=== PATIENT | female | born 1950 | race Caucasian/White ===

== ENCOUNTER → 2018-01-12 13:22 | Outpatient (CLI) | payer MEDICARE, OTHER, SELFPAY ==
[2018-01-12 16:46] LABS: Hemoglobin A1c 7.8 % (4.2-6.3)
[2018-01-12 16:56] LABS: ALB/GLOB Ratio 0.9 RATIO (0.9-2.4); AST(SGOT) 25 U/L (15-37); Alanine Aminotransfer ALT/SGPT 49 U/L (13-56); Albumin, Serum 3.6 g/dL (3.2-5.0); Alkaline Phosphatase 82 U/L (45-117); Anion Gap 8 (5-15); BUN 13 mg/dL (7-18); BUN/Creat Ratio 16.8 RATIO (10-20); Calcium,Total 9.2 mg/dL (8.5-10.1); Chloride 101 mmol/L (98-107); Cholesterol 188 mg/dL (200); Creatinine, Serum 0.77 mg/dL (0.55-1.02); EST Glomerular Filtration Rate 79 mL/min (>60); Est Glom Filt Rate - Afr Amer 95 mL/min (>60); Globulin 4.2 g/dL (2.2-4.2); Glucose 123 mg/dL (74-106); High Density Lipoprotein 48 mg/dL; Potassium 3.9 mmol/L (3.5-5.1); Protein, Total 7.8 g/dL (6.4-8.2); Sodium Level 141 mmol/L (136-145); Thyroid Stim Hormone (TSH) 1.19 uIU/mL (0.358-3.74); Triglycerides 176 mg/dL; Very Low Density Lipoprotein 35 mg/dL (5-40)
--- NOTE | 2018-01-13 09:34 | PFT ---
INTRODUCTION: The patient is a 67-year-old female that presents for pulmonary function testing secondary to a diagnosis of COPD. Respiratory therapy reports good patient effort. Bronchodilators were used during testing. INTERPRETATION: Forced expiration spirometry demonstrates the presence of a severe large airways obstructive ventilatory defect. There was no significant response to aerosolized bronchodilators. Spirograms are of good quality and do not plateau indicating slow emptying of the lungs. Body plethysmography was performed and reveals an elevated RV to 143% of predicted, indicative of underlying air trapping. Diffusing capacity by single breath CO severely reduced at 41% of predicted. IMPRESSION: These pulmonary function studies demonstrate the presence of an irreversible severe large airways obstructive ventilatory defect with associated air trapping and symmetric reduction in diffusing capacity. All of this would be in keeping with the patient's known history of COPD.
== END ==
PROVIDERS: Family Provider Family Medicine; PCP Family Medicine; Visit Provider Family Medicine
DX: E11.9 Type 2 diabetes mellitus without complications (principal); J44.9 Chronic obstructive pulmonary disease, unspecified; E03.9 Hypothyroidism, unspecified
CPT/HCPCS: 36415; 80053; 80061; 83036; 84443; 94060; 94726; 94729

== ENCOUNTER → 2018-02-19 13:44 | Outpatient (CLI) | payer MEDICARE, OTHER, SELFPAY | PROVIDERS: Family Provider Family Medicine; PCP Family Medicine; Visit Provider Family Medicine | DX: R22.2 Localized swelling, mass and lump, trunk (principal) | CPT/HCPCS: 71046 ==

== ENCOUNTER → 2018-02-23 10:08 | Outpatient (CLI) | payer MEDICARE, OTHER, SELFPAY | PROVIDERS: Family Provider Family Medicine; PCP Family Medicine; Visit Provider Family Medicine | DX: E04.9 Nontoxic goiter, unspecified (principal); R22.2 Localized swelling, mass and lump, trunk | CPT/HCPCS: 76536; 76604 ==

== ENCOUNTER → 2018-03-06 07:02 | Outpatient (CLI) | payer MEDICARE, OTHER, SELFPAY | PROVIDERS: Family Provider Family Medicine; PCP Family Medicine; Visit Provider Surgery | DX: M89.9 Disorder of bone, unspecified (principal) | CPT/HCPCS: 71250 ==

== ENCOUNTER → 2018-09-23 08:18 | Outpatient (CLI) | payer MEDICARE, OTHER, SELFPAY ==
[2018-09-22 14:10] VITALS: BMI 25.2
[2018-09-23 08:21] LABS: Bacteria 0 SEEN /hpf (None Seen); Mucous, Urine 0 SEEN /hpf (<or=2+); Red Blood Cells-Urine 0 SEEN /hpf (0-5)
[2018-09-23 12:32] LABS: Color, Urine Yellow (Yellow); Glucose, Dipstick Normal (Normal); Ketone-Dipstick Negative (Negative); Leukocyte Esterase-Dipstick Negative /ul (Negative); Nitrite-Dipstick Negative (Negative); Occult Blood-Urine Negative /ul (Negative); Protein-Dipstick 30 mg/dl (Negative); Urine Bilirubin Dipstick Negative (Negative); Urine Clarity Sl. Cloudy (Clear); Urine Urobilinogen Normal (Normal)
[2018-09-23 13:02] LABS: Calcium Oxalate Crystals Ur 2+ /hpf (<or=2+); Squamous Epithelial Cells - UA 0-5 SEEN /hpf (5-10); White Blood Cells 0-5 SEEN /hpf (0-5)
== END ==
PROVIDERS: Family Provider Family Medicine; PCP Family Medicine; Visit Provider Nurse Practitioner Family
DX: R30.0 Dysuria (principal); R53.1 Weakness
CPT/HCPCS: 81001; 87086

== ENCOUNTER → 2018-12-28 | Outpatient (CLI) | payer MEDICARE, OTHER, SELFPAY ==
[2018-12-16 16:30] VITALS: BMI 24.2
[2018-12-28 07:55] LABS: ALB/GLOB Ratio 0.8 RATIO (0.9-2.4); AST(SGOT) 34 U/L (15-37); Alanine Aminotransfer ALT/SGPT 71 U/L (13-56); Albumin, Serum 3.5 g/dL (3.2-5.0); Alkaline Phosphatase 85 U/L (45-117); Anion Gap 7 (5-15); BUN 15 mg/dL (7-18); BUN/Creat Ratio 17.3 RATIO (10-20); Calcium,Total 9.2 mg/dL (8.5-10.1); Chloride 101 mmol/L (98-107); Cholesterol 177 mg/dL (200); Creatinine, Serum 0.87 mg/dL (0.55-1.02); EST Glomerular Filtration Rate 69 mL/min (>60); Est Glom Filt Rate - Afr Amer 83 mL/min (>60); Globulin 4.3 g/dL (2.2-4.2); Glucose 141 mg/dL (74-106); High Density Lipoprotein 50 mg/dL; Potassium 3.9 mmol/L (3.5-5.1); Protein, Total 7.8 g/dL (6.4-8.2); Sodium Level 140 mmol/L (136-145); Thyroid Stim Hormone (TSH) 0.61 uIU/mL (0.358-3.74); Triglycerides 187 mg/dL; Very Low Density Lipoprotein 37 mg/dL (5-40)
== END | disposition home or self-care (01) ==
LOC: LAB 06:57
PROVIDERS: Family Provider Family Medicine; PCP Family Medicine; Referring Provider Family Medicine; Visit Provider Family Medicine
DX: I10 Essential (primary) hypertension (principal); E78.5 Hyperlipidemia, unspecified; E03.9 Hypothyroidism, unspecified
CPT/HCPCS: 36415; 80053; 80061; 84443

== ENCOUNTER → 2019-05-06 | Outpatient (CLI) | payer MEDICARE, OTHER, SELFPAY ==
[2019-05-06 13:07] VITALS: BMI 24.2
[2019-05-06 14:31] LABS: Bacteria 0 SEEN /hpf (None Seen); Mucous, Urine 0 SEEN /hpf (<or=2+); Red Blood Cells-Urine 0 SEEN /hpf (0-5); White Blood Cells 0 SEEN /hpf (0-5)
[2019-05-06 15:39] LABS: Absolute Lymphocyte Count 3.63 X10^3/uL (0.83-4.51); Absolute Neutrophil Count 5.9 X10^3/uL (2.0-7.7); Basophil# 0.04 X10^3/uL; Basophil% 0.4 % (0-1); Eosinophil# 0.06 X10^3/uL; Eosinophils% 0.6 % (0-5); Hemoglobin 15.1 g/dL (12.0-15.0); Lymphocyte # 3.63 X10^3/ul (4.0); Lymphocyte % 34.8 % (19-41); Mean Corp Hgb Conc 32.1 g/dL (32-36); Mean Corpuscular Hgb 31.9 pg (27.0-32.0); Mean Corpuscular Volume 99.4 fL (81-99); Mean Platelet Vol. 10.1 fl (6.2-12.0); Monocyte% 6.7 % (0-10); NRBC Flagged by Analyzer 0 % (0-5); Neutrophil # 5.94 X10^3/uL (2.7-7.7); Neutrophil % 56.9 % (47-70); Platelet Count 314 K/mm3 (150-450); RBC Distribution Width CV 11.7 % (11.6-14.6); RBC Distribution Width SD 42.9 fl (35.1-43.9); Red Blood Count 4.73 M/mm3 (4.2-5.4); White Blood Count 10.4 K/mm3 (4.4-11.0)
[2019-05-06 16:06] LABS: ALB/GLOB Ratio 0.9 RATIO (0.9-2.4); AST(SGOT) 23 U/L (15-37); Alanine Aminotransfer ALT/SGPT 63 U/L (13-56); Albumin, Serum 3.5 g/dL (3.2-5.0); Alkaline Phosphatase 82 U/L (45-117); Amylase 59 U/L (25-115); Anion Gap 7 (5-15); BUN 8 mg/dL (7-18); BUN/Creat Ratio 9.6 RATIO (10-20); Calcium,Total 8.9 mg/dL (8.5-10.1); Chloride 102 mmol/L (98-107); Creatinine, Serum 0.83 mg/dL (0.55-1.02); EST Glomerular Filtration Rate 72 mL/min (>60); Est Glom Filt Rate - Afr Amer 87 mL/min (>60); Globulin 4.1 g/dL (2.2-4.2); Glucose 129 mg/dL (74-106); Lipase 100 U/L (73-393); Potassium 4.1 mmol/L (3.5-5.1); Protein, Total 7.6 g/dL (6.4-8.2); Sodium Level 140 mmol/L (136-145); Thyroid Stim Hormone (TSH) 0.99 uIU/mL (0.358-3.74)
[2019-05-06 17:18] LABS: Color, Urine Yellow (Yellow); Glucose, Dipstick Normal (Normal); Ketone-Dipstick Negative (Negative); Leukocyte Esterase-Dipstick Negative /ul (Negative); Nitrite-Dipstick Negative (Negative); Occult Blood-Urine Negative /ul (Negative); Protein-Dipstick 30 mg/dl (Negative); Specific Gravity, Urine 1.025 (1.002-1.030); Urine Bilirubin Dipstick Negative (Negative); Urine Clarity Sl. Cloudy (Clear); Urine Urobilinogen Normal (Normal)
[2019-05-06 17:54] LABS: Calcium Oxalate Crystals Ur 4+ /hpf (<or=2+); Squamous Epithelial Cells - UA 0-5 SEEN /hpf (5-10)
== END | disposition home or self-care (01) ==
LOC: MTLAB 14:25
PROVIDERS: Family Provider Family Medicine; PCP Family Medicine; Referring Provider Nurse Practitioner Family; Visit Provider Nurse Practitioner Family
DX: R14.0 Abdominal distension (gaseous) (principal)
CPT/HCPCS: 36415; 80053; 81001; 82150; 83690; 84443; 85025; 87086; 87088

== ENCOUNTER → 2019-05-17 10:03 | Outpatient (CLI) | payer MEDICARE, OTHER, SELFPAY ==
[2019-05-06 13:07] VITALS: BMI 24.2
--- NOTE | 2019-05-17 10:07 | US_ITS ---
STUDY: ABDOMINAL ULTRASOUND REASON FOR EXAM: Female, 68 years old. Abdominal pain. Flank pain. TECHNIQUE: Transabdominal ultrasound was performed with real-time and static magana scale imaging. TECHNICAL QUALITY: Adequate. COMPARISON: CT scan 09/17/2015. FINDINGS: Liver: The liver measures 15.6 cm. There is increased echogenicity consistent with fatty infiltration. The bile ducts are within normal limits. There is hepatic color flow. The direction of portal flow is hepatopetal. There is no demonstrated mass lesion. Portal vein measurement: Gallbladder: The patient is status post cholecystectomy. Common Bile Duct (C.B.D.): The common bile duct measures 4.3 mm. Pancreas: Normal size of the head, body and tail of the pancreas. There is normal echogenicity of the pancreas. There is no demonstrated pancreatic mass or cyst. Spleen: Normal size of the spleen. The spleen measures 8.1 cm. Right Kidney: Normal size of the right kidney. The right kidney measures 11.1 cm. Normal renal cortex. The right cortex measures 1.7 cm. There is no demonstrated renal mass or cyst. There is no right hydronephrosis. Left Kidney: Normal size of the left kidney. The left kidney measures 10.4 cm. Normal renal cortex. The left cortex measures 1.6 cm. There is a 3.5 cm lower pole cyst. There is no left hydronephrosis. Aorta: Mild 3.2 cm distal aortic aneurysm. I.V.C.: The IVC is patent. There is no ascites. US/Abdomen Complete IMPRESSION: No definite acute abnormality. Electronically Signed: Juan Espinal MD at 21:59 EST , Service support ,
== END ==
PROVIDERS: Family Provider Family Medicine; PCP Family Medicine; Referring Provider Nurse Practitioner Family; Visit Provider Nurse Practitioner Family
DX: R10.9 Unspecified abdominal pain (principal); R14.0 Abdominal distension (gaseous)
CPT/HCPCS: 76700

== ENCOUNTER → 2019-12-05 13:34 | Outpatient (CLI) | payer MEDICARE, SELFPAY ==
[2019-11-29 14:17] VITALS: BMI 24.2
[2019-12-02 07:59] VITALS: BMI 24.2
--- NOTE | 2019-12-05 13:36 | BI_ITS ---
MAMMOGRAPHY - BILATERAL SCREENING REASON FOR EXAM: Female, 69 years old. Routine annual screening examination. PERTINENT HISTORY: Non-contributory. Right axillary fullness. TECHNIQUE: Digital bilateral breast chapincito (3D mammographic acquisition) in the CC and MLO projections. 2-D mediolateral oblique (MLO) and craniocaudad (CC) views of both breasts were obtained. CAD: Full Field Digital Mammography with Computer Added Detection was performed. COMPARISON: Comparison is made with prior study dated July 17, 2011. FINDINGS: Breast Composition: There are scattered areas of fibroglandular density. There are no dominant masses or suspicious calcifications. No other significant abnormalities are identified. There has been no significant change since the prior study. BI/SCREEN MAMM (CAD) W/CHAPINCITO BILAT IMPRESSION: Stable bilateral screening mammogram. With the patient''s history of a right axillary fullness, correlation with ultrasound is recommended. ASSESSMENT CATEGORY: BIRADS Category 0: Incomplete. Need additional imaging evaluation. A letter regarding these results will be sent to the patient by the facility within 30 days. Approximately 10% of breast cancers are not detected by mammography. A normal mammogram should not delay biopsy of a clinically suspicious abnormality. [id number] Electronically Signed: Jagdish Kenney, at 14:34 EDT , Service support ,
--- NOTE | 2019-12-05 13:36 | US_ITS ---
STUDY: ULTRASOUND BREAST - RIGHT REASON FOR EXAM: Female, 69 years old. Right axillary fullness. TECHNIQUE: Axial and longitudinal images of the RIGHT breast were performed with a high resolution ultrasound transducer. # OF IMAGES: 19 COMPARISON: Comparison is made with prior mammogram done earlier today. FINDINGS: RIGHT Breast: The axillary region of the right breast was examined by ultrasound. There is evidence of fibroglandular tissue. No solid or cystic mass lesion is seen. US/Breast Limited Unilateral IMPRESSION: The axillary fullness corresponds to accessory breast tissue. ASSESSMENT CATEGORY: BIRADS Category 2: Benign. A letter regarding these results will be sent to the patient by the facility within 30 days. Electronically Signed: Jagdish Kenney, at 14:35 EDT , Service support ,
--- OUTSIDE RECORDS SUMMARY | 2020-04-15 09:40 | XMS RPT_ITS | CCD ---
:1950 External Reference #:[id number] Author Organization [facility] Care Team Providers Name Role Phone Unavailable Unavailable Unavailable Results Result Name Value Range Unit Interpretation Flag Date Location progress on 2019-11 PROGRESS HNO ID: [id number] Normal 12-10-2019 [facility] Author: Vaishali Pulido (Papo) Heather Rodriguez ([id number]) Service: ? Author Type: Physician Water Service Dispatcher Type: Progress Notes Filed: 12/10/2019 2:56 PM Note Text: This note was created using [employer]. Subjective Abiola Abreu is a 69 year old female. HPI Pt presents with jaw pain. She had a tooth pulled December 01 a yesterday her jaw started hurting and she noticed some swelling. She d oes not smoke and has been washing her mouth with salt water after eating. She says her oral surgeon is out of town this week. No fever or chills. N o drainage form the gum but she did notice a lump on her gum. Review of Systems HENT: Jaw pain All other systems reviewed and are negative. PAST MEDICAL HISTORY Diagnosis Date - Unspecified essential hypertension Essential hypertension - Unspecified hypothyroidism Hypothyroidism Current Outpatient Medications Medication Sig Dispense Refill - metFORMIN ER (GLUCOPHAGE XR) 750 mg 24 hr tablet Take 1 ta blet by mouth twice daily. - aspirin-calcium carbonate 81 mg-300 mg calcium(777 mg) tab Take 1 tablet by mouth once daily. - albuterol HFA (VENTOLIN HFA) 90 mcg/actuation inhaler Inha le 2 Puffs as instructed every 4 hours as needed for Wheezing/Shortness of Breath. 1 Inhaler 0 - LEVOTHYROXINE 100 MCG TAB Take one(1) tablet daily. 0 - nifedipine(PROCARDIA XL 30 MG 24 HR TAB) 0 - pravastatin (PRAVACHOL) 40 mg tablet Take 0.5 tablets by m outh once daily. - amoxicillin (AMOXIL) 875 mg tablet Take 1 tablet by mouth twice daily for 10 days. 20 tablet 0 No current facility-administered medications for this visit. PAST SURGICAL HISTORY Procedure Laterality Date - LAP CHOLECYSTECT/CHOLANGIOGRAPHY 12/07/2007 Normal IOC - REPAIR ROTATOR CUFF,ACUTE Rotator cuff repair - right - REVISE MEDIAN N/CARPAL TUNNEL SURG Carpal tunnel decomp - bilateral History reviewed. No pertinent family history. Social History Tobacco Use - Smoking status: Former Smoker Packs/day: 0.50 Years: 45.00 Pack years: 22.50 Types: Cigarettes Last attempt to quit: 06/2015 Years since quittin.4 - Smokeless tobacco: Never Used Substance Use Topics - Alcohol use: No - Drug use: No Objective BP 120/72 Pulse 86 Temp 36.9 ?C (98.4 ?F) (Left Tympanic ) Resp 16 Wt 61 kg (134 lb 6.4 oz) Physical Exam Vitals signs and nursing note reviewed. Constitutional: Appearance: Normal appearance. HENT: Head: Normocephalic and atraumatic. Mouth/Throat: Comments: Pt has evidence of a recent dental extraction on r ight lower molar are. There is some mild swelling of the gum line and o verlying jaw. No trismus. No sign of ludwigs angina. No dry socket visuali zed. Skin: General: Skin is warm and dry. Findings: No rash. Neurological: Mental Status: She is alert. Assessment and Plan ASSESSMENT/PLAN: 1. Dental infection - ICD9: 522.4, ICD10: K04.7 I will start her on amoxil and have her follow up with her traci daniels. Discussed red flags for emergent care. Pt agreeable. Vaishali Heller PA-C cnfeliz on 2019-12-10 [facility] Office Visit ([facility]) Normal 12-10-19 20 [place] ABIOLA Smart ([id number]) 1950 F [facility] Time Provider Department ([id number]) 12/10/19 1:45 PM VAISHALI HELLER) [facility] During your visit today, we recorded the following informati on about you: Temperature Pulse Respiration Blood pressure 98.4 degrees 86/minute 16/minute 120/72 Weight 61 kg Vaishali Heller PA-C 12/10/2019 2:56 PM Signed This note was created using [employer]. Subjective Abiola Abreu is a 69 year old female. HPI Pt presents with jaw pain. She had a tooth pulled December 01 and yesterday her jaw started hurting and she noticed some swellin g. She does not smoke and has been washing her mouth with salt water a fter eating. She says her oral surgeon is out of town this week. No fever or ch ills. No drainage form the gum but she did notice a lump on her gum. Review of Systems HENT: Jaw pain All other systems reviewed and are negative. PAST MEDICAL HISTORY Diagnosis Date - Unspecified essential hypertension Essential hypertension - Unspecified hypothyroidism Hypothyroidism Current Outpatient Medications Medication Sig Dispense Refill - metFORMIN ER (GLUCOPHAGE X R) 750 mg 24 hr tablet Take 1 tablet by mouth twice daily. - aspirin-calcium carbonate 81 mg-300 mg calcium (777 mg) tab Take 1 tablet by mouth once daily. - albuterol HFA (VENTOLIN HFA) 90 mcg/actuation inhaler Inha le 2 Puffs as instructed every 4 hours as needed for W heezing/Shortness of Breath. 1 Inhaler 0 - LEVOTHYROXINE 100 MCG TAB Take one(1) tablet daily. 0 - nifedipine(PROCARDIA XL 30 MG 24 HR TAB) 0 - pravastatin (PRAVACHOL) 40 mg tablet Take 0.5 tablet s by mouth once daily. - amoxicillin (AMOXIL) 875 mg tablet Jay e 1 tablet by mouth twice daily for 10 days. 20 tablet 0 No current facility-administered medications for this visit. PAST SURGICAL HISTORY Procedure Laterality Date - LAP CHOLECYSTECT/CHOLANGIOGRAPHY 12/07/2007 Normal IOC - REPAIR ROTATOR CUFF,ACUTE Rotator cuff repair - right - REVISE MEDIAN N/CARPAL TUNNEL SURG Carpal tunnel decomp - bilateral History reviewed. No pertinent family history. Social History Tobacco Use - Smoking status: Former Smoker Packs/day: 0.50 Years: 45.00 Pack years: 22.50 Types: Cigarettes Last attempt to quit: 06/2015 Years since quittin.4 - Smokeless tobacco: Never Used Substance Use Topics - Alcohol use: No - Drug use: No Objective BP 120/72 Pulse 86 Temp 36.9 ?C (98.4 ?F) (Left Tympanic ) Resp 16 Wt 61 kg (134 lb 6.4 oz) Physical Exam Vitals signs and nursing note reviewed. Constitutional: Appearance: Normal appearance. HENT: Head: Normocephalic and atraumatic. Mouth/Throat: Comments: Pt has evidence of a recent dental extractio n on right lower molar are. There is some mild swel ling of the gum line and overlying jaw. No trismus. No sign of ludwigs angina. No dry socket visualized. Skin: General: Skin is warm and dry. Findings: No rash. Neurological: Mental Status: She is alert. Assessment and Plan ASSESSMENT/PLAN: 1. Dental infection - ICD9: 522.4, ICD10: K04.7 I will start her on amoxil and have her follow u p with her dentist. Discussed red flags for emergent care. Pt agreeable. Vaishali Heller PA-C Referring Provider: SELF [[id number]] Allergies As of Date: 12/10/2019 Noted Allergy Reaction SULFA (SULFONAMIDE ANTIBIOTICS) 11/29/2007 4 - Hives Date Reviewed: 12/10/2019 Reviewed by: Sandie Dowling Ma - Fully Assessed Reason for Visit: Mouth/Lip Problem [68] Cmt: possible infection after t ooth extraction 12/02/19 Primary Visit Diagnosis:Dental infection [K04.7] Order(s):amoxicillin (AMOXIL) 875 mg tabletTake 1 tablet by mouth twice daily for 10 days.Disp: 20 tabletRfl: 0 Prescriptions as of 12/10/2019 Sig: METFORMIN ER 750 MG TABLET,EX* Take 1 tablet by mouth twice * ASPIRIN-CALCIUM CARBONATE 81 * Take 1 tablet by mouth once d * ALBUTEROL SULFATE HFA 90 MCG/* Inhale 2 Puffs as instructed * * LEVOTHYROXINE 100 MCG TABLET Take one(1) tablet daily. * PROCARDIA XL 30 MG TABLET,EXT* PRAVASTATIN 40 MG TABLET Take 0.5 tablets by mouth onc* AMOXICILLIN 875 MG TABLET Take 1 tablet by mouth twice * Problem List As Of Date 12/10/2019 Noted Resolved ABDOMINAL PAIN RUQ [R10.11] 11/29/2007 DIS OF GALLBLADDER NEC [K82.8] 12/11/2007 LUMBOSACRAL NEURITIS NOS [[id number]] 10/03/2008 Prescriptions ordered this encounter Disp Refills Start End AMOXICILLIN 875 MG TABLET 20 t* 0 12/10/2019 12/20/2019 Route: ORAL Sig: Take 1 tablet by mouth twice daily for 10 days. Encounter Status:Closed by VAISHALI HELLER PA-C on 12/10/19 Summary Purpose Family History No Family History Records Found Advance Directives No Advanced Directives Records Found Additional Source Comments FOR RECORDS PERTAINING TO PATIENTS WHO ARE OR HAVE BEEN ENROLLED IN A CHEMICAL DEPENDENCY/SUBSTANCE ABUSE PROGRAM, SOME INFORMATION MAY BE OMITTED. This clinical summary was aggregated from multiple sources. Caution should be exercised in using it in the provision of clinical care. This summary normalizes information from multiple sources, and as a consequence, information in this document may materially changethe coding, format and clinical context of patient data. In addition, data may be omittedin some cases. CLINICAL DECISIONS SHOULD BE BASED ON THE PRIMARY CLINICAL RECORDS. [employer] [facility] provides no warranty or guarantee of the accuracy or completeness of information in this document. UNRECOGNIZED CONTENT PROVIDED BELOW FOR UNRECOGNIZED SECTION INFORMATION SOURCE DATE CREATED AUTHOR AUTHOR'S ORGANIZATIO N 12/10/2019 [facility]
== END ==
PROVIDERS: PCP Family Medicine; Referring Provider Family Medicine; Visit Provider Family Medicine
DX: Z12.31 Encounter for screening mammogram for malignant neoplasm of breast (principal); N63.32 Unspecified lump in axillary tail of the left breast; N63.31 Unspecified lump in axillary tail of the right breast
CPT/HCPCS: 76642; 77063; 77067

== ENCOUNTER → 2020-02-28 | Outpatient (CLI) | payer MEDICARE, SELFPAY ==
[2020-02-28 14:05] VITALS: BMI 24.2
[2020-02-28 17:32] LABS: ALB/GLOB Ratio 0.9 RATIO (0.9-2.4); AST(SGOT) 21 U/L (15-37); Alanine Aminotransfer ALT/SGPT 39 U/L (13-56); Albumin, Serum 3.7 g/dL (3.2-5.0); Alkaline Phosphatase 68 U/L (45-117); Anion Gap 5 (5-15); BUN 19 mg/dL (7-18); BUN/Creat Ratio 16.4 RATIO (10-20); Calcium,Total 8.8 mg/dL (8.5-10.1); Chloride 103 mmol/L (98-107); Cholesterol 197 mg/dL (200); Creatinine, Serum 1.16 mg/dL (0.55-1.02); EST Glomerular Filtration Rate 49 mL/min (>60); Est Glom Filt Rate - Afr Amer 59 mL/min (>60); Globulin 4.2 g/dL (2.2-4.2); Glucose 182 mg/dL (74-106); High Density Lipoprotein 53 mg/dL; Protein, Total 7.9 g/dL (6.4-8.2); Sodium Level 139 mmol/L (136-145); T4 Free Direct 0.91 ng/dL (0.76-1.46); Triglycerides 227 mg/dL; Very Low Density Lipoprotein 45 mg/dL (5-40)
== END | disposition home or self-care (01) ==
LOC: BIMLAB 14:26
PROVIDERS: PCP Family Medicine; Referring Provider Family Medicine; Visit Provider Family Medicine
DX: E11.9 Type 2 diabetes mellitus without complications (principal); G45.8 Other transient cerebral ischemic attacks and related syndromes
CPT/HCPCS: 36415; 80053; 80061; 84439

== ENCOUNTER → 2020-04-06 | Outpatient (CLI) | payer MEDICARE, SELFPAY ==
[2020-04-06 10:33] VITALS: BMI 22.6
[2020-04-06 11:00] LABS: Bacteria 0 SEEN /hpf (None Seen); Mucous, Urine 0 SEEN /hpf (<or=2+); Red Blood Cells-Urine 0 SEEN /hpf (0-5)
[2020-04-06 12:50] LABS: Color, Urine Yellow (Yellow); Glucose, Dipstick Normal (Normal); Ketone-Dipstick Negative (Negative); Leukocyte Esterase-Dipstick 25 /ul (Negative); Nitrite-Dipstick Negative (Negative); Occult Blood-Urine Negative /ul (Negative); Protein-Dipstick 30 mg/dl (Negative); Specific Gravity, Urine 1.025 (1.002-1.030); Urine Bilirubin Dipstick Negative (Negative); Urine Clarity Clear (Clear); Urine Urobilinogen Normal (Normal)
[2020-04-06 13:00] LABS: Calcium Oxalate Crystals Ur 1+ /hpf (<or=2+); Hyaline Cast 10-25 SEEN /lpf (0-5); Squamous Epithelial Cells - UA 10-25 SEEN /hpf (5-10); White Blood Cells 0-5 SEEN /hpf (0-5)
[2020-04-06 17:29] LABS: Anion Gap 5 (5-15); BUN 18 mg/dL (7-18); BUN/Creat Ratio 19.2 RATIO (10-20); Calcium,Total 9.3 mg/dL (8.5-10.1); Chloride 94 mmol/L (98-107); Creatinine, Serum 0.94 mg/dL (0.55-1.02); EST Glomerular Filtration Rate 63 mL/min (>60); Est Glom Filt Rate - Afr Amer 76 mL/min (>60); Glucose 100 mg/dL (74-106); Potassium 4.2 mmol/L (3.5-5.1); Sodium Level 132 mmol/L (136-145)
== END | disposition home or self-care (01) ==
LOC: LABSPEC 10:59 → BIMLAB 14:47
PROVIDERS: PCP Family Medicine; Referring Provider Nurse Practitioner Family; Visit Provider Nurse Practitioner Family
DX: R30.0 Dysuria (principal); R94.4 Abnormal results of kidney function studies
CPT/HCPCS: 36415; 80048; 81001; 87086; 87088

== ENCOUNTER → 2020-06-15 08:44 | Outpatient (CLI) | payer MEDICARE, SELFPAY ==
[2020-05-31 14:07] VITALS: BMI 24.2
--- NOTE | 2020-06-15 08:47 | AAVD_ITS ---
Reason For Study: AAA Aorta Measurements Aorta Doppler Measurements Proximal aorta measures1.83 x 1.96cm. in cross- Peak systolic flow velocities within the proximal sectional axis. aorta measure 46.1 cm/sec. Proximal aorta measures1.90cm. in longitudinal Peak systolic flow velocities within the mid aorta axis. measure 30.5 cm/sec. Mid aorta measures3.01 x 3.03cm. in cross- Peak systolic flow velocities within the distal sectional axis. aorta measure 21.6 cm/sec. Mid aorta measures3.07cm. in longitudinal axis. Distal aorta measures2.57 x 2.74cm. in cross- sectional axis. Distal aorta measures2.74cm. in longitudinal axis. Left Iliac Artery Left iliac artery measures 0.75 x 0.73 cm. in the cross-sectional axis. Left iliac artery measures 0.81 cm. in the longitudinal axis. Peak systolic velocity in the left iliac artery measures 40.2 cm/sec. Right Iliac Artery Right iliac artery measures 0.85 x 0.86 cm. in the cross-sectional axis. Right iliac artery measures 0.93 cm. in the longitudinal axis. Peak systolic velocity in the right iliac artery measures 33.7 cm/sec. Procedure Aorta IVC Iliac vasculature or bypass grafts [id number]. Exam performed in department. Interpretation Summary Mid abdominal aortic aneurysm 3.01 x 3.03 cm. Left common iliac 0.75 x 0.73 cm which is normal Right common iliac 0.85 x 0.86 cm which is normal I do not have previous studies available for comparison. Ordering Physician: Harjinder Castillo Referring Physician: Harjinder Castillo Performed By: Carol Gonsalez RVT and Student
== END ==
PROVIDERS: PCP Family Medicine; Referring Provider Family Medicine; Visit Provider Family Medicine
DX: I71.4 Abdominal aortic aneurysm, without rupture (principal)
CPT/HCPCS: 93978

== ENCOUNTER 2020-07-13 14:02 | Emergency (ER) | payer MEDICARE, SELFPAY ==
[2020-05-31 14:07] VITALS: BMI 24.2
[2020-07-13 14:03] VITALS: BP 139/93; PULSE 109; RESP 20; TEMP 36.3; O2SAT 92; BMI 22.6
--- NOTE | 2020-07-13 14:18 | ED.VISSUMM ---
- ER Visit Summary Date of Service: 07/13/20 Chief Complaint: Diarrhea History of Present Illness: The patient is a [address] Harjinder Castillo. She reports she has diarrhea that began 3 days ago. She is having is 2-3 times a day. Reports it has been black since yesterday. She complains of a cramping abdominal pains 8 out of 10 at worst and she is pain-free currently. This is worsened by nothing and relieved by having a bowel movement. She denies any nausea or vomiting. Patient reports that 3 weeks ago she was diagnosed with a E. coli and was placed on antibiotics for 5 days. She states that it did not work and my stomach is still grumbling. Patient denies any fever, chills, sore throat, or cough. She reports that her son also has diarrhea. She denies sick contacts. She has not been camping. She does drink well water. Physical Examination: Vitals: 97.4, 131/53, 109, 20, 90% room air which not hypoxic. General: Well-nourished and well-developed. Head: Normocephalic atraumatic. Neck: Supple, no lymphadenopathy. No JVD. Nontender. Cardiovascular: Regular rate and rhythm. No murmurs. Respiratory: No respiratory distress. Clear to auscultation bilaterally. Abdominal: Soft, mild left lower quadrant tenderness to palpation, nondistended, normal bowel sounds. No guarding, rebound, or peritoneal signs. Back: Nontender. Extremities: Nontender, no edema. Skin: Normal color, no rash. Neurologic: Alert and oriented ?3. Cranial nerves II through XII are intact. Normal strength and sensation. Psych: Normal affect. Test Results: CBC is normal. Of note her hemoglobin is 13.9. Chem-7 shows a creatinine 1.18. BUN is 18. LFTs are normal. Hemoccult was negative. COVID-19 is negative. Clinical Impression(s) from Imaging Studies Abdomen/Pelvis CT 07/13/20 15:32 IMPRESSION: Aneurysmal dilatation of the distal abdominal aorta with a transverse dimension of 3.2 cm. Mural thrombus. Diffuse fatty infiltration of the liver. Hepatomegaly. The patient is status post cholecystectomy. Electronically Signed: Jagdish Kenney, at 15:47 EST , Service support , Emergency Department Course and Treatment: Patient brought a stool sample with her. This appears brown with black flecks and is not runny. She refused pain or nausea medications. Treatment Plan: Had a prolonged discussion the patient after things had returned. She at this time told me that she did take 2 Pepto-Bismol tablets prior to her stool turning black. She has had no diarrhea while here. I feel that she is suitable candidate for further outpatient evaluation. She will be discharged instructions that if her stool studies are abnormal she will be contacted. Instructed to take in probiotics. Follow-up with her primary 3 to 5 days if not improving. Return to the emergency department for any worsening symptoms. Disposition: To home in improved and stable condition. Impression: 1 1. Diarrhea. This note was generated with [employer] dictation software. It may contain incorrect words, spelling, and punctuation that were not noted in review of the chart prior to signing ED Disposition - Plan for ED Patient: Instructions: ED Diarrhea, Unknown Cause Referrals: Harjinder Castillo, DO [Primary Care Provider] - 3-5 Days if not improving
[2020-07-13 14:58] LABS: Absolute Lymphocyte Count 3.29 X10^3/uL (0.83-4.51); Absolute Neutrophil Count 5.4 X10^3/uL (2.0-7.7); Basophil# 0.08 X10^3/uL; Basophil% 0.8 % (0-1); Eosinophil# 0.14 X10^3/uL; Eosinophils% 1.5 % (0-5); Hematocrit 42.4 % (37-47); Hemoglobin 13.9 g/dL (12.0-15.0); Lymphocyte # 3.29 X10^3/ul (4.0); Lymphocyte % 34.5 % (19-41); Mean Corp Hgb Conc 32.8 g/dL (32-36); Mean Corpuscular Hgb 32.6 pg (27.0-32.0); Mean Corpuscular Volume 99.3 fL (81-99); Mean Platelet Vol. 9.6 fl (6.2-12.0); Monocyte# 0.62 X10^3/uL; Monocyte% 6.5 % (0-10); NRBC Flagged by Analyzer 0 % (0-5); Neutrophil # 5.35 X10^3/uL (2.7-7.7); Neutrophil % 56.2 % (47-70); Platelet Count 337 K/mm3 (150-450); RBC Distribution Width CV 12.4 % (11.6-14.6); RBC Distribution Width SD 45.4 fl (35.1-43.9); Red Blood Count 4.27 M/mm3 (4.2-5.4); White Blood Count 9.5 K/mm3 (4.4-11.0)
[2020-07-13 15:16] LABS: AST(SGOT) 17 U/L (15-37); Alanine Aminotransfer ALT/SGPT 33 U/L (13-56); Albumin, Serum 3.8 g/dL (3.2-5.0); Alkaline Phosphatase 68 U/L (45-117); Anion Gap 3 (5-15); BUN 18 mg/dL (7-18); BUN/Creat Ratio 15.3 RATIO (10-20); Calcium,Total 9.1 mg/dL (8.5-10.1); Chloride 107 mmol/L (98-107); Creatinine, Serum 1.18 mg/dL (0.55-1.02); EST Glomerular Filtration Rate 48 mL/min (>60); Est Glom Filt Rate - Afr Amer 58 mL/min (>60); Estimated Creatinine Clearance 38.31 ml/min; Glucose 95 mg/dL (74-106); Potassium 4.1 mmol/L (3.5-5.1); Protein, Total 7.8 g/dL (6.4-8.2); Sodium Level 140 mmol/L (136-145)
--- NOTE | 2020-07-13 15:32 | CT_ITS ---
STUDY: CT ABDOMEN AND PELVIS WITH CONTRAST REASON FOR EXAM: Female, 69 years old. BLACK STOOL X 2 DAYS RADIATION DOSAGE (If Supplied By Facility): CTDIvol = ( 11.81 ) mGy, DLP = ( 504.62 ) mGycm TECHNIQUE: Transaxial images were obtained from the dome of the diaphragm to the symphysis pubis without oral contrast. IV 100mL Isovue-300 was administered. Sagittal and coronal images were reconstructed. Individualized dose optimization techniques were used for this CT. COMPARISON: None. FINDINGS: The visualized lung bases are unremarkable. The visualized portions of the heart are within normal limits. There is decreased attenuation of the liver consistent with steatosis. Mild hepatomegaly. The patient is status post cholecystectomy. Normal spleen. Normal pancreas. Normal bilateral adrenal glands. Normal right kidney. 3.3 cm cyst in the lower pole of the left kidney. Normal visualized stomach. Normal small intestine. There are multiple colonic diverticula consistent with diverticulosis. The appendix is visualized and appears normal. There is diffuse atherosclerotic calcification of the abdominal aorta. There is evidence of intrarenal abdominal aortic aneurysm with a transverse dimension of 3.2 cm. Mural thrombus is seen.. Normal inferior vena cava. Normal retroperitoneum. Normal urinary bladder. Normal abdominal wall. Normal osseous structures. CT/Abdomen/Pelvis W IV Cont ONLY IMPRESSION: Aneurysmal dilatation of the distal abdominal aorta with a transverse dimension of 3.2 cm. Mural thrombus. Diffuse fatty infiltration of the liver. Hepatomegaly. The patient is status post cholecystectomy. Electronically Signed: Jadgish Kenney, at 15:47 EST , Service support ,
[2020-07-13 16:12] VITALS: BP 128/66; PULSE 73; RESP 15; O2SAT 96
== END 2020-07-13 16:16 | disposition home or self-care (01) ==
LOC: ED 15:15
PROVIDERS: Emergency Provider Emergency Medicine; PCP Family Medicine
DX: R19.7 Diarrhea, unspecified (principal); E11.9 Type 2 diabetes mellitus without complications; Z87.891 Personal history of nicotine dependence; Z79.84 Long term (current) use of oral hypoglycemic drugs
CPT/HCPCS: 74177; 80053; 82274; 83630; 85025; 87177; 87209; 87426; 87493; 87506; 99283; Q9967; A4216

== ENCOUNTER 2020-08-30 07:22 | Outpatient (RCR) | payer MEDICARE, SELFPAY ==
[2020-08-30] MEDS: COVID-19 VACC, MRNA(PFIZER)/PF 30 MCG/0.3 ML SYRINGE IM (13:57)
[2020-09-20] MEDS: COVID-19 VACC, MRNA(PFIZER)/PF 30 MCG/0.3 ML SYRINGE IM (13:27)
== END 2020-12-04 23:59 ==
LOC: IMMUN 07:22
PROVIDERS: PCP Family Medicine; Referring Provider Family Medicine; Visit Provider Family Medicine
DX: Z23 Encounter for immunization (principal)
CPT/HCPCS: 0001A; 0002A; 91300

== ENCOUNTER → 2021-01-29 10:06 | Outpatient (CLI) | payer MEDICARE, SELFPAY ==
[2021-01-29 09:30] VITALS: BMI 21.8
[2021-01-29 12:21] LABS: AST(SGOT) 19 U/L (15-37); Alanine Aminotransfer ALT/SGPT 33 U/L (13-56); Albumin, Serum 3.9 g/dL (3.2-5.0); Alkaline Phosphatase 57 U/L (45-117); Anion Gap 6 (5-15); BUN 15 mg/dL (7-18); BUN/Creat Ratio 14.2 RATIO (10-20); Calcium,Total 9.6 mg/dL (8.5-10.1); Chloride 103 mmol/L (98-107); Creatinine, Serum 1.06 mg/dL (0.55-1.02); EST Glomerular Filtration Rate 54 mL/min (>60); Est Glom Filt Rate - Afr Amer 66 mL/min (>60); Globulin 3.8 g/dL (2.2-4.2); Glucose 160 mg/dL (74-106); Potassium 3.8 mmol/L (3.5-5.1); Protein, Total 7.7 g/dL (6.4-8.2); Sodium Level 139 mmol/L (136-145)
== END ==
PROVIDERS: PCP Family Medicine; Referring Provider Internal Medicine; Visit Provider Internal Medicine
DX: R16.0 Hepatomegaly, not elsewhere classified (principal)
CPT/HCPCS: 36415; 80053

== ENCOUNTER → 2021-03-05 12:55 | Outpatient (CLI) | payer MEDICARE, SELFPAY ==
--- NOTE | 2021-03-05 14:00 | CT_ITS ---
STUDY: LOW DOSE CT LUNG CANCER SCREENING REASON FOR EXAM: Female, 70 years old. Lung cancer screening -- 53 pack yr history; former smoker; asymptomatic RADIATION DOSAGE (If Supplied By Facility): CTDIvol = ( 2.01 ) mGy, DLP = ( 65.95 ) mGycm TECHNIQUE: No contrast was administered. Low dose technique was utilized (average mAS-38 and kVp 120). 1.25 mm axial source images with a slice interval of 1.25-mm were reconstructed in lung windows. 2.5 mm axial source images with a slice interval of 2.5-mm were reconstructed in lung windows. 5.0 mm axial source images with a slice interval of 5.0-mm were reconstructed in soft tissue windows. Nodule measured using lung windows on PACS and/or independent workstation with automated measurement of minimum and maximum diameter. Nodule measurement reported as average diameter rounded to the nearest whole number. Growth is defined as an increase ins size of greater than 1.5 mm. COMPARISON: Comparison is made with prior examination dated 03/06/2018. NODULES: No suspicious pulmonary nodules are seen. Emphysema: Hyperinflation. Mild degree of emphysematous changes in both lungs more prominent in the right lower lobe with some bullous formation. Endobronchial lesion: Aorta: Atherosclerotic plaque formation of the ascending aorta and descending thoracic aorta. Coronary arteries: Coronary artery calcification. Heart: Unremarkable Pulmonary artery: Unremarkable Mediastinal nodes: Unremarkable Other chest and abdominal findings: CT/Low Dose CT Lung Screening IMPRESSION: Lung-RADS category 2 - Continue annual screening with LDCT in 12 months. IMPORTANT NOTES FOR USE: ACR Lung-RADS Version 1.1 Assessment Categories Release Date: 2018 Category: Coded 0-4 bases on nodule(s) with highest degree of suspicion. Negative screen is defined as categories 1 and 2; a positive screen is defined as categories 3 and 4. Category 3 and 4A nodules that are unchanged on interval CT should be coded as category 2, and individuals returned to screening in 12 months. Category 4X: Category 3 or 4 nodules with additional imaging findings that increase the suspicion of lung cancer, such as spiculation, GGN that doubles in size in 1 year, enlarged lymph notes, etc. Category Modifiers: S (significant finding unrelated to lung cancer) Electronically Signed: Jagdish Kenney MD at 14:30 EDT , Service support ,
== END ==
PROVIDERS: PCP Family Medicine; Referring Provider Nurse Practitioner Family; Visit Provider Nurse Practitioner Family
DX: Z87.891 Personal history of nicotine dependence (principal); Z12.2 Encounter for screening for malignant neoplasm of respiratory organs
CPT/HCPCS: 71271

== ENCOUNTER → 2021-03-27 | Outpatient (CLI) | payer MEDICARE, SELFPAY ==
[2021-03-27 10:25] LABS: Bacteria 0 SEEN /hpf (None Seen); Mucous, Urine 0 SEEN /hpf (<or=2+); Red Blood Cells-Urine 0 SEEN /hpf (0-5); White Blood Cells 0 SEEN /hpf (0-5)
[2021-03-27 12:43] LABS: Color, Urine Straw (Yellow); Glucose, Dipstick Normal (Normal); Ketone-Dipstick Negative (Negative); Leukocyte Esterase-Dipstick Negative /ul (Negative); Nitrite-Dipstick Negative (Negative); Occult Blood-Urine Negative /ul (Negative); Protein-Dipstick Negative (Negative); Urine Bilirubin Dipstick Negative (Negative); Urine Clarity Sl. Cloudy (Clear); Urine Urobilinogen Normal (Normal); Urine pH 6.5 (5.0 - 8.0)
[2021-03-27 12:54] LABS: Squamous Epithelial Cells - UA 0-5 SEEN /hpf (5-10)
== END | disposition home or self-care (01) ==
LOC: LABSPEC 10:24
PROVIDERS: PCP Family Medicine; Referring Provider Nurse Practitioner Family; Visit Provider Nurse Practitioner Family
DX: R30.0 Dysuria (principal); R53.1 Weakness
CPT/HCPCS: 81001; 87086

== ENCOUNTER → 2021-05-30 13:42 | Outpatient (CLI) | payer MEDICARE, SELFPAY ==
[2021-05-30 15:51] LABS: T4 Free Direct 0.85 ng/dL (0.76-1.46)
[2021-06-03 15:08] LABS: Thyroid Peroxidase AB 75 IU/mL (0-34)
[2021-06-03 20:53] LABS: Thyroglobulin Antibody > 2250.0 IU/mL (0.0-0.9)
== END ==
PROVIDERS: PCP Family Medicine; Referring Provider Family Medicine; Visit Provider Family Medicine
DX: E03.9 Hypothyroidism, unspecified (principal); R53.1 Weakness
CPT/HCPCS: 36415; 84439; 84443; 86376; 86800

== ENCOUNTER → 2021-06-12 08:48 | Outpatient (CLI) | payer MEDICARE, SELFPAY ==
--- NOTE | 2021-06-12 09:07 | AAAS_ITS ---
Reason For Study: AAA Aorta Measurements Aorta Doppler Measurements Proximal aorta measures2.38cm x 2.28cm. in cross- Peak systolic flow velocities within the proximal sectional axis. aorta measure 70 cm/sec. Proximal aorta measures2.12cm. in longitudinal Peak systolic flow velocities within the mid aorta axis. measure 44 cm/sec. Mid aorta measures3.22cm x 3.27cm. in cross- Peak systolic flow velocities within the distal sectional axis. aorta measure 34 cm/sec. Mid aorta measures2.85cm. in longitudinal axis. Distal aorta measures1.91cm x 1.87cm. in cross- sectional axis. Distal aorta measures1.94cm. in longitudinal axis. Left Iliac Artery Left iliac artery measures 0.59cm x 0.70 cm. in the cross-sectional axis. Left iliac artery measures 0.74 cm. in the longitudinal axis. Peak systolic velocity in the left iliac artery measures 62 cm/sec. Right Iliac Artery Right iliac artery measures 0.64cm x 0.80 cm. in the cross-sectional axis. Right iliac artery measures 0.77 cm. in the longitudinal axis. Peak systolic velocity in the right iliac artery measures 59 cm/sec. Procedure Aorta IVC Iliac vasculature or bypass grafts 53862. Exam performed in department. VL/AAA Screening Interpretation Summary Proximal abdominal aorta 2.38 x 2.28 cm in diameter Mid abdominal aorta 3.22 x 3.27 cm diameter consistent with a small aneurysm Right common axial 0.64 x 0.8 cm normal Left common neck 0.59 x 0.7 cm in diameter normal Normal flow rates are noted in the abdominal aorta and iliac arteries Minimal change in the abdominal aorta from the previous examination of June 15, 2020 when the mid abdominal aorta measured 3.01 x 3.03 cm Ordering Physician: Harjinder Castillo Referring Physician: Harjinder Castillo Performed By: Ritu Goff, RDCS, RVT
== END ==
PROVIDERS: PCP Family Medicine; Referring Provider Family Medicine; Visit Provider Family Medicine
DX: I71.4 Abdominal aortic aneurysm, without rupture (principal)
CPT/HCPCS: 76706

== ENCOUNTER → 2021-06-25 11:48 | Outpatient (CLI) | payer MEDICARE, SELFPAY ==
--- NOTE | 2021-06-25 11:55 | RAD_ITS ---
STUDY: X-RAY STERNUM REASON FOR EXAM: Female, 70 years old. Lung. TECHNIQUE: 4 view(s) of the sternum were obtained. COMPARISON: None. FINDINGS: Normal bilateral sternoclavicular articulations. Normal manubrium. Normal sternomanubrial joint. Normal sternal body and xiphoid process. There is no demonstrated fracture of the sternum. Normal visualized anterior ribs. Normal visualized lungs. The soft tissue structures are unremarkable. RAD/Sternum min 2 Views IMPRESSION: Normal x-ray examination of the sternum. Electronically Signed: Mitch Ling MD at 10:34 EST , Service support ,
== END ==
PROVIDERS: PCP Family Medicine; Referring Provider Family Medicine; Visit Provider Family Medicine
DX: R07.89 Other chest pain (principal)
CPT/HCPCS: 71120

== ENCOUNTER 2021-07-19 12:23 | Outpatient (CLI) | payer MEDICARE, OTHER, SELFPAY ==
--- NOTE | 2021-07-19 12:33 | STEWCON_ITS ---
Reason For Study: Chest Pain; Dyspnea Stress Results Protocol: Dobutamine Stress Echo With Definity Maximum Predicted HR: 149 bpm Target HR: 127 bpm % Maximum Predicted HR: 92 % DurationHeart Rate Stage (mm:ss) (bpm) BP Comment Baseline 108 113/59Mild Chest Pressure; 5 ML Diluted Definity DSE 10 MCG 3:33 96 107/63Mild Chest Pressure DSE 20 MCG 2:14 137 112/56Mild Chest Pressure Recovery 100 107/57Mild Chest Pressure Stress Duration: 5:47 mm:ss Maximum Stress HR: 137 bpm METS: 1 Baseline Echocardiogram Findings Stress Echo Wall motion Data Resting WM Intermediate WM Stress WM ECHO/Stress Test Echo W/Contrast Interpretation Summary Dobutamine stress echocardiogram. 70-year-old lady with a history of chest pain. Resting echocardiogram performed with Definity enhancement and stress echocardi ogram with Definity enhancement. Stress protocol: Resting EKG demonstrates sinus rhythm with a rate of 100 bpm resting blood pres sure is 113/59 mmHg. Dobutamine was infused starting at 10 mcg/kg/min to a peak of 20 mcg/kg/min. Th e maximum heart rate attained was 141 bpm which was 94% of max infected heart rate the maximum workl oad was 1 metabolic equivalent. At rest nonspecific ST changes were noted and at peak infusion nons pecific ST changes were noted. There was approximately 1 mm of horizontal to upsloping ST depressi on noted in the inferior lateral leads not diagnostic of ischemia. During recovery changes retu rned back to baseline immediately. The peak blood pressure was 121/71 mmHg. Stress echocardiogram. The resting echocardiographic function demonstrated an e jection fraction of approximately 70%. At low-dose and at peak dose there was near chamber oblitera tion present with peaking of ejection fraction at 85%. No wall motion abnormalities were noted to suggest ischemia. Conclusion: Dobutamine stress echocardiogram with no wall motion abnormalities to suggest i schemia. Ordering Physician: Harjinder Castillo Referring Physician: Buck Delgado Performed By: Brandi Montalvo, YUSUF, RVT
== END 2021-07-19 23:59 | disposition short-term general hospital (02) ==
PROVIDERS: PCP Family Medicine; Referring Provider Family Medicine; Visit Provider Family Medicine
DX: R07.9 Chest pain, unspecified (principal)
CPT/HCPCS: 93017; 93350; J7040; Q9957; A4216; C8928

== ENCOUNTER 2021-08-14 15:28 | Outpatient (CLI) | payer MEDICARE, OTHER, SELFPAY ==
[2021-08-14 16:55] LABS: Thyroid Stim Hormone (TSH) 0.06 uIU/mL (0.358-3.74)
== END 2021-08-14 23:59 | disposition home or self-care (01) ==
LOC: BIMLAB 15:29
PROVIDERS: PCP Family Medicine; Referring Provider Family Medicine; Visit Provider Family Medicine
DX: E03.9 Hypothyroidism, unspecified (principal)
CPT/HCPCS: 36415; 84443

== ENCOUNTER 2021-09-27 10:18 | Outpatient (CLI) | payer MEDICARE, SELFPAY ==
[2021-09-27 12:39] LABS: T4 Free Direct 1.14 ng/dL (0.76-1.46); Thyroid Stim Hormone (TSH) 7.09 uIU/mL (0.358-3.74)
== END 2021-09-27 23:59 | disposition home or self-care (01) ==
LOC: BIMLAB 10:20
PROVIDERS: PCP Family Medicine; Referring Provider Family Medicine; Visit Provider Family Medicine
DX: E03.9 Hypothyroidism, unspecified (principal)
CPT/HCPCS: 36415; 84439; 84443

== ENCOUNTER → 2021-10-25 | Outpatient (CLI) | payer MEDICARE, SELFPAY ==
[2021-10-25 15:58] LABS: Bacteria 0 SEEN /hpf (None Seen); Mucous, Urine 0 SEEN /hpf (<or=2+); Red Blood Cells-Urine 0 SEEN /hpf (0-5); Squamous Epithelial Cells - UA 0 SEEN /hpf (5-10); White Blood Cells 0 SEEN /hpf (0-5)
[2021-10-25 16:47] LABS: Color, Urine Straw (Yellow); Glucose, Dipstick Normal (Normal); Ketone-Dipstick Negative (Negative); Leukocyte Esterase-Dipstick 25 /ul (Negative); Nitrite-Dipstick Negative (Negative); Occult Blood-Urine Negative /ul (Negative); Protein-Dipstick Negative (Negative); Urine Bilirubin Dipstick Negative (Negative); Urine Clarity Clear (Clear); Urine Urobilinogen Normal (Normal)
== END | disposition home or self-care (01) ==
LOC: LABSPEC 15:57
PROVIDERS: PCP Family Medicine; Referring Provider Physician Assistant; Visit Provider Physician Assistant
DX: R39.9 Unspecified symptoms and signs involving the genitourinary system (principal)
CPT/HCPCS: 81001; 87086; 87088

== ENCOUNTER 2021-11-07 06:57 | Emergency (ER) | payer MEDICARE, SELFPAY ==
[2021-11-07 06:59] VITALS: BP 163/94; PULSE 109; RESP 14; TEMP 36.6; O2SAT 94; BMI 21.9
--- NOTE | 2021-11-07 07:13 | EDS_ITS ---
HPI History of Present Illness Chief Complaint: Complaint Informant: patient Onset/Context/Timing Onset: Yesterday Context: Sudden Onset Timing: Intermittent Quality: blood and few small clots Location: urine Current Severity: Moderate Maximum Severity: Moderate Worsened by: n/a Relieved by: n/a Associated Symptoms Associated Symptoms: bloating Narrative Narrative: Patient presents with hematuria that started last night. Some clots but no retention. She feels like she is bloated a little but denies any abdominal pain, nausea, vomiting. Bowel movements been normal. No vaginal symptoms or discharge. 2 weeks ago, she had foul-smelling urine and she states it was sticky when she would wipe but denies having a vaginal discharge at that time. Saw her PCP and was diagnosed with a urinary infection placed on nitrofurantoin and prednisone. She states her urine is not foul-smelling anymore. She never had any dysuria or abdominal pain. She has discomfort in her low back when she does activities but that is not new with this, and she denies any changes or back discomfort that is new/associated with the symptoms. No history of any kidney stones. She is on no blood thinning medications. [facility] Medical History Acute maxillary sinusitis Asthma Back problem Chronic obstructive lung disease Encounter for screening for malignant neoplasm of lung in current smoker with 30 pack year history or greater Goiter Hepatomegaly History of tobacco use Hyperlipidemia Hypertension Hypothyroid Shingles Smoking greater than 40 pack years Type 2 diabetes mellitus Home Medications montelukast 10 mg tablet 10 mg PO QPM #90 tab 10/24/20 [Rx Last Taken Unknown] lisinopril 10 mg tablet 10 mg PO DAILY #90 tab 11/27/20 [Rx Last Taken Unknown] pravastatin 40 mg tablet 20 mg PO DAILY #90 tab 05/21/21 [Rx Last Taken Unknown] meloxicam 7.5 mg tablet 7.5 mg PO DAILY #30 tab 05/30/21 [Rx Last Taken Unknown] metformin 750 mg tablet,extended release 24 hr 750 mg PO BID #180 tab 06/11/21 [Rx Last Taken Unknown] levothyroxine 75 mcg tablet 75 mcg PO DAILY #90 tab 08/15/21 [Rx Last Taken Unknown] fluconazole 150 mg tablet 150 mg PO Q3D #2 tab 09/05/21 [Rx Last Taken Unknown] penicillin V potassium 500 mg tablet 500 mg PO TID #30 tab 09/05/21 [Rx Last Taken Unknown] fluticasone fur. 200 mcg-umeclid 62.5 mcg-vilant 25 mcg inhalat.powder 1 inh INHALATION DAILY #180 ea 10/24/21 [Rx Last Taken Unknown] levocetirizine 5 mg tablet 5 mg PO DAILY PRN #30 tab 10/25/21 [Rx Last Taken Unknown] prednisone 10 mg tablet 10 mg PO DAILY #30 tab 10/25/21 [Rx Last Taken Unknown] cephalexin 500 mg PO Q6 #20 capsule 11/07/21 [Rx Last Taken Unknown] Allergy/AdvReac Type Severity Reaction Status Date / Time amlodipine Allergy Unknown muscle pain Verified 11/07/21 07:02 Sulfa (Sulfonamide Allergy Rash Verified 11/07/21 07:02 Antibiotics) Family History Sister Thyroid disorder Thyroid cancer Heart disease Diabetes Mother Colon cancer Ovarian cancer Diabetes Father Stomach cancer Colon cancer Brother Heart disease Grandfather Colon cancer Surgical History History of cholecystectomy History of colonoscopy Social History Smoking Status: Former smoker quit date: 06/29/18 pack-years: 55 Tobacco: How many years used: 55 how long ago did patient quit smokin years second hand exposure: Yes quit status: quit date established alcohol intake: never substance use type: does not use caffeine: No what type of physical activity do you participate in: none ROS ROS ED Constitutional Constitutional ED: Denies chills or fever(s) Eyes Eyes: Denies change in vision or diplopia ENT ENT ED: Denies rhinorrhea or sore throat Cardiovascular Cardiovascular: Denies chest pain or palpitations Respiratory/Chest Respiratory/Chest: Denies cough or dyspnea Gastrointestinal Gastrointestinal: Reports as per HPI and bloating; Denies abdominal pain, diarrhea, nausea or vomiting Genitourinary Genitourinary ED: Reports hematuria; Denies dysuria, itching, vaginal bleeding or vaginal discharge Musculoskeletal Musculoskeletal: Reports as per HPI and back pain; Denies neck pain Integumentary Denies abscess or rash Neurologic Neurologic: Denies headache(s), paresthesias or weakness Psychiatric Psychiatric: Denies anxiety or suicidal thoughts EXAM Physical Exam Const Vital Signs: 11/07/21 06:59 Temperature 97.8 F Temperature Source Temporal Pulse Rate 109 H Respiratory Rate 14 Blood Pressure 163/94 H Blood Pressure Mean 117 Pulse Ox 94 Oxygen Delivery Method Room Air Positive well nourished and well developed General Appearance ED: well developed and NAD HEENT Reports moist mucous membranes normocephalic and atraumatic Eyes PERRL and EOMs intact bilaterally Neck full ROM and supple Resp normal respiratory effort and clear to auscultation bilaterally Cardio regular rate, regular rhythm and no murmurs GI non-tender and non-distended Auscultation: normoactive bowel sounds Palpation: soft Speculum Exam - Vagina: Negative for vaginal bleeding or vaginal discharge Back/Spine no CVA tenderness General Back: other FROM Extremity normal to inspection General Extremety ED: Negative for edema, pulses abnormal or tenderness General Extremity: Negative for edema or pulses abnormal Neuro oriented x3, CN's II-XII intact bilaterally, no sensory deficits noted and gait normal Sensorium / Orientation: awake and alert Motor Exam: strength 5/5 throughout Skin no rashes or lesions noted and no wounds MDM MDM MDM Narrative Medical decision making narrative: Urinalysis initially sent, it does show some leukocyte Estrace and pyuria, but no bacteria. Blood noted. Therefore I sent her also for a CT abdomen/pelvis, and blood work was obtained. She has a leukocytosis but this may be due to the prednisone she has been taking, the rest of her blood work is unremarkable. CT is unremarkable. I am sending her urine for culture and treating her empirically for possible infection there, if the antibiotic does not help I recommend following up with urology as she may need cystoscopy or other work-up for pathology not visible on CT or microbiology. Discussed the negative culture with the patient as well, she is allergic to sulfa so we will start her on cephalexin, 5-day prescription, urology follow-up. Lab Data Attestation: I reviewed the patient's lab results. Labs: Laboratory Results - last 24 hr 11/07/21 11/07/21 11/07/21 07:05 07:45 07:45 WBC 16.9 H RBC 4.29 Hgb 13.5 Hct 42.0 MCV 97.9 MCH 31.5 MCHC 32.1 RDW Std Deviation 52.9 H RDW Coeff of Ginny 14.6 Plt Count 317 MPV 9.5 Immature Gran % (Auto) 0.600 Neut % (Auto) 66.6 Lymph % (Auto) 23.9 Park % (Auto) 7.7 Eos % (Auto) 0.8 Baso % (Auto) 0.4 Absolute Neuts (auto) 11.3 H Absolute Lymphs (auto) 4.05 Nucleated RBC % 0 Sodium 141 Potassium 3.9 Chloride 103 Carbon Dioxide 32.0 Anion Gap 6 BUN 14 Creatinine 1.00 Estim Creat Clear Calc 43.91 Est GFR (MDRD) Af Amer 70 Est GFR (MDRD) Non-Af 58 L BUN/Creatinine Ratio 14.0 Glucose 137 H Calcium 9.5 Urine Color Red Urine Clarity Sl. Cloudy Urine pH 6.5 Ur Specific [place] 1.010 Urine Protein 500 H Urine Glucose (UA) Normal Urine Ketones 5 H Urine Occult Blood 250 H Urine Nitrite Negative Urine Bilirubin Negative Urine Urobilinogen Normal Ur Leukocyte Esterase 100 H Urine RBC > 100 SEEN Urine WBC 25-50 SEEN Ur Squamous Epith Cells 0-5 SEEN Amorphous Sediment 1+ Urine Bacteria 0 SEEN Urine Mucus 0 SEEN Radiography Diagnostic Testing: Clinical Impression(s) from Imaging Studies Abdomen/Pelvis CT 11/07/21 07:38 IMPRESSION: Stable cyst in the lower pole of the left kidney. Mild hepatomegaly and fatty infiltration of the liver. The patient is status post cholecystectomy. Stable infrarenal abdominal aortic aneurysm. Electronically Signed: Jagdish Kenney MD at 8:33 EDT , Discharge Plan Triage Chief Complaint: Complaint ED Provider: Edil Mann Dx/Rx/DC Orders Clinical Impression: Hematuria Instructions: ED Hematuria Prescriptions: New cephalexin [cephalexin] 500 MG capsule 500 mg PO Q6 Qty: 20 RF: 0 No Action montelukast [Singulair] 10 mg tablet 10 mg PO QPM Qty: 90 RF: 1 meloxicam 7.5 mg tablet 7.5 mg PO DAILY Qty: 30 RF: 2 penicillin V potassium 500 mg tablet 500 mg PO TID Qty: 30 RF: 1 fluconazole [Diflucan] 150 mg tablet 150 mg PO Q3D Qty: 2 RF: 1 levocetirizine 5 mg tablet 5 mg PO DAILY PRN (Reason: allergies) Qty: 30 RF: 3 prednisone 10 mg tablet 10 mg PO DAILY Qty: 30 RF: 0 lisinopril 10 mg tablet 10 mg PO DAILY Qty: 90 RF: 3 pravastatin 40 mg tablet 20 mg PO DAILY Qty: 90 RF: 0 metformin 750 mg tablet extended release 24 hr 750 mg PO BID Qty: 180 RF: 3 levothyroxine 75 mcg tablet 75 mcg PO DAILY Qty: 90 RF: 0 Trelegy Ellipta 200-62.5-25 mcg blister with device 1 inh inhalation DAILY Qty: 180 RF: 1 Primary Care Provider: Harjinder Castillo Referrals: Harjinder Castillo DO [Primary Care Provider] - Antonieta Razo MD [STAFF PHYSICIAN] - As soon as possible Disposition Disposition: Home, Self Care
[2021-11-07 07:17] LABS: Bacteria 0 SEEN /hpf (None Seen); Mucous, Urine 0 SEEN /hpf (<or=2+)
[2021-11-07 07:22] LABS: Color, Urine Red (Yellow); Glucose, Dipstick Normal (Normal); Ketone-Dipstick 5 mg/dl (Negative); Leukocyte Esterase-Dipstick 100 /ul (Negative); Nitrite-Dipstick Negative (Negative); Occult Blood-Urine 250 /ul (Negative); Protein-Dipstick 500 mg/dl (Negative); Urine Bilirubin Dipstick Negative (Negative); Urine Clarity Sl. Cloudy (Clear); Urine Urobilinogen Normal (Normal); Urine pH 6.5 (5.0 - 8.0)
[2021-11-07 07:30] LABS: Red Blood Cells-Urine > 100 SEEN /hpf (0-5)
[2021-11-07 07:31] LABS: Amorphous Sediment 1+; Squamous Epithelial Cells - UA 0-5 SEEN /hpf (5-10); White Blood Cells 25-50 SEEN /hpf (0-5)
--- NOTE | 2021-11-07 07:38 | CT_ITS ---
STUDY: CT ABDOMEN AND PELVIS WITHOUT CONTRAST REASON FOR EXAM: Female, 71 years old. Hematuria. Bloating and cramping. RADIATION DOSAGE (If Supplied By Facility): CTDIvol = ( 6.27 ) mGy, DLP = ( 281.94 ) mGycm TECHNIQUE: Transaxial images were obtained from the dome of the diaphragm to the symphysis pubis without oral contrast, and without intravenous contrast. Sagittal and coronal images were reconstructed. Individualized dose optimization techniques were used for this CT. COMPARISON: Comparison is made with prior study dated 07/13/2020. FINDINGS: Emphysematous changes seen at both lung bases with a small blebs. The visualized portions of the heart are within normal limits. There is decreased attenuation of the liver consistent with steatosis. Mild hepatomegaly. The patient is status post cholecystectomy. Normal spleen. Normal pancreas. Normal bilateral adrenal glands. Normal right kidney. There is a 3.3 cm cyst in the inferior pole of the left kidney. This is unchanged. Normal visualized stomach. Normal small intestine. Normal colon. The appendix is visualized and appears normal. There is diffuse atherosclerotic calcification of the abdominal aorta. There is evidence of a fusiform infrarenal abdominal aortic aneurysm with a transverse dimension of 3.3 cm. Normal inferior vena cava. Normal retroperitoneum. Normal urinary bladder. Normal abdominal wall. There are mild degenerative changes of the visualized lumbar spine. CT/Abdomen/Pelvis without Cont IMPRESSION: Stable cyst in the lower pole of the left kidney. Mild hepatomegaly and fatty infiltration of the liver. The patient is status post cholecystectomy. Stable infrarenal abdominal aortic aneurysm. Electronically Signed: Jagdish Kenney MD at 8:33 EDT ,
[2021-11-07 07:56] LABS: Absolute Lymphocyte Count 4.05 X10^3/uL (0.83-4.51); Absolute Neutrophil Count 11.3 X10^3/uL (2.0-7.7); Basophil# 0.06 X10^3/uL; Basophil% 0.4 % (0-1); Eosinophil# 0.14 X10^3/uL; Eosinophils% 0.8 % (0-5); Hemoglobin 13.5 g/dL (12.0-15.0); Lymphocyte # 4.05 X10^3/ul (0.83-4.51); Lymphocyte % 23.9 % (19-41); Mean Corp Hgb Conc 32.1 g/dL (32-36); Mean Corpuscular Hgb 31.5 pg (27.0-32.0); Mean Corpuscular Volume 97.9 fL (81-99); Mean Platelet Vol. 9.5 fl (6.2-12.0); Monocyte% 7.7 % (0-10); NRBC Flagged by Analyzer 0 % (0-5); Neutrophil # 11.28 X10^3/uL (2.7-7.7); Neutrophil % 66.6 % (47-70); Platelet Count 317 K/mm3 (150-450); RBC Distribution Width CV 14.6 % (11.6-14.6); RBC Distribution Width SD 52.9 fl (35.1-43.9); Red Blood Count 4.29 M/mm3 (4.2-5.4); White Blood Count 16.9 K/mm3 (4.4-11.0)
[2021-11-07 08:09] LABS: Anion Gap 6 (5-15); BUN 14 mg/dL (7-18); Calcium,Total 9.5 mg/dL (8.5-10.1); Chloride 103 mmol/L (98-107); EST Glomerular Filtration Rate 58 mL/min (>60); Est Glom Filt Rate - Afr Amer 70 mL/min (>60); Estimated Creatinine Clearance 43.91 ml/min; Glucose 137 mg/dL (74-106); Potassium 3.9 mmol/L (3.5-5.1); Sodium Level 141 mmol/L (136-145)
[2021-11-07] MEDS: Cephalexin 250 MG Capsule 500 MG PO (09:28)
== END 2021-11-07 09:33 | disposition home or self-care (01) ==
PROVIDERS: Emergency Provider Emergency Medicine; PCP Family Medicine; Visit Provider Emergency Medicine
DX: R31.9 Hematuria, unspecified (principal); J44.9 Chronic obstructive pulmonary disease, unspecified; E11.9 Type 2 diabetes mellitus without complications; R14.0 Abdominal distension (gaseous); E78.5 Hyperlipidemia, unspecified; I10 Essential (primary) hypertension; Z87.891 Personal history of nicotine dependence; E03.9 Hypothyroidism, unspecified; Z79.899 Other long term (current) drug therapy; Z79.84 Long term (current) use of oral hypoglycemic drugs; Z79.890 Hormone replacement therapy
CPT/HCPCS: 74176; 80048; 81001; 85025; 87077; 87086; 87088; 87186; 99284; A4216

== ENCOUNTER → 2021-11-19 | Outpatient (CLI) | payer MEDICARE, SELFPAY ==
--- NOTE | 2021-11-19 | CYSPIN_PTH ---
PATIENT: HUBER ABREU LOC: [facility] U#:[id number] AGE/SX: 71/F ROOM: RE11/19/[address]: Dr. Antonieta Razo MD : 1950 BED: DIS: 11/19/2021 SPEC #: [id number] RECD: 11/20/21 11:40 STATUS: CHANEL CORDERO #: [id number] MAYE: 11/19/21 00:[address]: Antonieta Razo DEPT: CYTOLOGY RECD BY: Dusty Jerry ENTERED: 11/20/21 11:41 SP TYPE: CYSPIN FL OTHR DR: Dr. Harjinder Castillo, DO Tissues: Urine Procedures: Pap Stain (control) Special Stain Group II Cytospin Fluid HEADER OPERATION: Not noted PRE-OP DIAGNOSIS: Gross hematuria TISSUE SUBMITTED: Urine for cytology DIAGNOSIS CYTOLOGY Urine for cytology (cytospin): Mildly atypical urothelial cells noted, favor reactive. Marked acute inflammation. See comment. SJ:yuli 11/21/2021 COMMENT Numerous organisms consistent with bacteria are also noted. Clinical correlation and appropriate follow up are necessary. CYTOLOGY STUDY Slides are reviewed. CYTOLOGY GROSS Received is 50 ml of light yellow cloudy fluid labeled with the patient's name and and designated per the requisition as urine. Submitted for cytology preparation. / yuli 11/20/2021 TC:2 CPT: 57750
[2021-11-19 17:43] LABS: Cytology, Body Fluid / CSF SEE PATHOLOGY REPORT
== END | disposition home or self-care (01) ==
PROVIDERS: PCP Family Medicine; Referring Provider Urology; Visit Provider Urology
DX: R31.0 Gross hematuria (principal)
CPT/HCPCS: 88108; 88313

== ENCOUNTER → 2021-11-22 | Outpatient (CLI) | payer MEDICARE, SELFPAY ==
--- NOTE | 2021-11-22 13:33 | CT_ITS ---
STUDY: CT ABDOMEN AND PELVIS WITH AND WITHOUT CONTRAST REASON FOR EXAM: Female, 71 years old. GROSS HEMATURIA RADIATION DOSAGE (If Supplied By Facility): CTDIvol = ( 13.48 ) mGy, DLP = ( 1597.92 ) mGycm TECHNIQUE: Transaxial images were obtained from the dome of the diaphragm to the symphysis pubis without oral contrast. IV 75mL Isovue-370 was administered. Sagittal and coronal images were reconstructed. Individualized dose optimization techniques were used for this CT. COMPARISON: 11/07/2021 FINDINGS: The visualized lung bases are unremarkable. The visualized portions of the heart are within normal limits. There is decreased attenuation of the liver consistent with steatosis. There is non-visualization of the gallbladder, which may be secondary to either contraction or a prior cholecystectomy. Normal spleen. Normal pancreas. Normal bilateral adrenal glands. Normal right kidney. 3 cm cyst in the lower pole left kidney. Normal visualized stomach. Normal small intestine. There are multiple colonic diverticula consistent with diverticulosis. The appendix is visualized and appears normal. No change in 3.2 cm fusiform aneurysm of the infrarenal aorta with peripheral calcified plaque and mural thrombus. Normal inferior vena cava. Normal retroperitoneum. Normal urinary bladder. Normal abdominal wall. Normal osseous structures. CT/CT Abd/Pelvis W/WO Contrast IMPRESSION: No CT evident etiology of hematuria. Electronically Signed: Albino Ying MD at 17:14 EDT ,
== END | disposition home or self-care (01) ==
LOC: CT 13:31
PROVIDERS: PCP Family Medicine; Referring Provider Urology; Visit Provider Urology
DX: R31.0 Gross hematuria (principal)
CPT/HCPCS: 74178; Q9967; A4216

== ENCOUNTER 2021-12-05 14:08 | Outpatient (CLI) | payer MEDICARE, SELFPAY ==
[2021-12-05 15:10] LABS: Color, Urine Yellow (Yellow); Glucose, Dipstick Normal (Normal); Ketone-Dipstick Negative (Negative); Leukocyte Esterase-Dipstick 500 /ul (Negative); Nitrite-Dipstick Negative (Negative); Occult Blood-Urine 10 /ul (Negative); Protein-Dipstick Negative (Negative); Urine Bilirubin Dipstick Negative (Negative); Urine Clarity Clear (Clear); Urine Urobilinogen Normal (Normal)
== END 2021-12-05 23:59 | disposition home or self-care (01) ==
LOC: BIMLAB 14:08
PROVIDERS: PCP Family Medicine; Visit Provider Family Medicine
DX: R31.9 Hematuria, unspecified (principal)
CPT/HCPCS: 81001; 81002

== ENCOUNTER 2022-04-03 07:16 | Day surgery (SDC) | payer MEDICARE, SELFPAY ==
[2022-04-03] VITALS (7 sets, daily range): BP systolic 73–123; BP diastolic 46–71; PULSE 78–100; RESP 16; TEMP 36.6; O2SAT 92–100; BMI 22.3
--- NOTE | 2022-04-03 | FLU_PTH ---
PATIENT: HUBER ABREU LOC: [facility] U#:[id number] AGE/SX: 71/F ROOM: RE04/03/[address]: Dr. Antonieta Razo MD : 1950 BED: DIS: 04/03/2022 SPEC #: [id number] RECD: 04/03/22 12:44 STATUS: HCANEL REEffie #: [id number] MAYE: 04/03/22 00:[address]: Antonieta Razo DEPT: CYTOLOGY RECD BY: Dusty Jerry ENTERED: 04/03/22 12:45 SP TYPE: Fluid OTHR DR: Dr. Harjinder Castillo, DO Tissues: A - Pelvis, NOS B - Pelvis, NOS Procedures: Special Stain Group II Surgery Specimen Level IV Cytospin Fluid HEADER OPERATION: Cysto, bilateral selective cytologies, bilateral ureteroscopy PRE-OP DIAGNOSIS: Ureteral stricture, hematuria TISSUE SUBMITTED: A ? Left renal pelvic washings for cytology, B ? Right renal pelvic washings for cytology DIAGNOSIS CYTOLOGY A. Left renal pelvic washings for cytology (cytospin and cell block): Negative for high-grade urothelial carcinoma (NHGUC), ([facility] Cytology Category II). See comment. B. Right renal pelvic washings for cytology (cytospin and cell block): Negative for high-grade urothelial carcinoma (NHGUC), ([facility] Cytology Category II). See comment. SJ:yuli 04/04/2022 COMMENT A & B. Cluster of urothelial cells with reactive changes are noted. The [facility] System for urine cytology diagnostic categorization was used in the evaluation of this case. CYTOLOGY STUDY Slides are reviewed. CYTOLOGY GROSS A - Received is 1 ml of clear fluid labeled with the patient's name and and designated per the requisition as left renal pelvic washings for cytology. Submitted for cytology preparation including cell block. B - Received is 1 ml of clear fluid labeled with the patient's name and and designated per the requisition as right renal pelvic washings for cytology. Submitted for cytology preparation including cell block. / yuli 04/03/2022 TC:5 CPT: 10020 x2, 06891 x2
[2022-04-03] MEDS: Lactated Ringers 1,000 ML 15 ML IV (07:47)
[2022-04-03 08:10] LABS: Bedside Glucose 116 mg/dL (74-106)
[2022-04-03] MEDS: Cefazolin 2 GM in 0.9% Normal Saline 100 ML IV (08:51)
[2022-04-03 09:45] LABS: Cytology, Body Fluid / CSF SEE PATHOLOGY REPORT
--- NOTE | 2022-04-03 10:01 | DCINST_ITS ---
Discharge Instructions Diet Discharge Diet: No restrictions Activity Discharge Activity: Return to Normal Activity Dressing / Incision Call your doctor if you observe: Fever of 101 or Higher, Inability to urinate and Inability to have a bowel movement Follow Up Care Please Follow Up With: Antonieta Razo MD When: Call office for instructions Test Results: Test results from this visit will be discussed in further detail at your follow- up appointment, if applicable. Discharge Plan Admission Attending Provider: Antonieta Razo Primary Care Provider: Harjinder Castillo Discharge Orders/Prescriptions Prescriptions: New oxycodone-acetaminophen [Percocet] 5-325 mg tablet 1 tab PO Q8H PRN (Reason: pain) 3 Days Qty: 14 0RF phenazopyridine [phenazopyridine] 100 mg tablet 100 mg PO TID Qty: 30 0RF Continued levothyroxine 75 mcg tablet 75 mcg PO DAILY Qty: 90 1RF amoxicillin-pot clavulanate 875-125 mg tablet 1 tab PO BID Qty: 14 0RF wpiwirvf-oadkxtycm-BV 3.5-10,000-1 mg/mL-unit/mL-% solution 4 drp otic (ear) TID 10 Days Qty: 10 0RF tkjmkdqw-tvcrlbd-mvvr-lutein Tablet 1 tab PO DAILY metformin 750 mg tablet extended release 24 hr 500 mg PO BID pravastatin 20 mg tablet 20 mg PO DAILY Qty: 90 3RF levocetirizine 5 mg tablet 5 mg PO DAILY PRN (Reason: allergies) Qty: 30 3RF budesonide-formoterol [Symbicort] 160-4.5 mcg/actuation HFA aerosol inhaler 2 puff inhalation BID Qty: 10.2 4RF Referrals / Follow Up: Harjinder Castillo DO [Primary Care Provider] - Disposition Disposition (needs filled in before D/C Order can be placed): Home, Self Care
[2022-04-03 10:21] LABS: Bedside Glucose 132 mg/dL (74-106)
--- NOTE | 2022-04-03 12:12 | OP.PCM_ITS ---
Report of Operation Date of Procedure: 04/03/22 Pre-Operative Diagnosis: Gross hematuria Post-Operative Diagnosis: Same Surgery/Procedure Performed:: Cystoscopy, bilateral selective cytologies, right ureteroscopy, left ureteral stent insertion Surgeon: Antonieta Razo Type of Anesthesia: General Specimen's removed: Bilateral renal washings for cytologic evaluation Description of Procedure: The patient is a 71-year-old female who had a negative CT, cystoscopy for gross hematuria and now presents for further evaluation of her renal units. Informed consent was obtained. The patient was taken to the operating room and placed on the operating room table. Anesthesia monitored the head, neck, airway, IV access and vital signs throughout the case. Once anesthesia was apparently administered, the patient was placed into dorsolithotomy position and was prepped and draped in usual sterile fashion. The cystoscope was inserted through the urethra under direct visualization. The bladder mucosa was found to be within normal limits. There is a cystocele defect which was reduced for placement of a Pollick catheter through the right ureteral orifice into the renal pelvis. Washings were then sent for cytologic evaluation. A 0.035 Glidewire was then inserted and the flexible ureteroscope was placed over the Glidewire and achieved access all the way to the renal pelvis. On direct visualization there was no evidence of mass, stone or abnormality. Direct visualization of the ureter was performed as the ureteroscope was removed revealing no evidence of abnormality. At this time the process was repeated on the patient's left side with a Pollick catheter being used to obtain left sided renal pelvic washings. The wire was inserted without difficulty, however the ureteroscope would not pass easily over the wire into the ureter. The decision was made to abort the ureteroscopy and place a ureteral stent for future evaluation. The safety wire was used for placement of a 6 Prydeinig 24 cm JJ stent which had good positioning within the renal pelvis as well as the urinary bladder. The patient's bladder was then emptied and she was awakened and taken to the recovery room in good condition. There were no complications during this procedure. Grafts/Implants Used: 6 x 24 JJ stent Complications None Admit VTE Documentation VTE Present on Admission: Yes VTE Mechan Device Prophylaxis: SCD's VTE Pharm Prophylaxis ordered?: No Reason prophylaxis not ordered:: Treatment Not Indicated
== END 2022-04-03 11:00 | disposition home or self-care (01) ==
LOC: SDC 07:17 → AC 07:17
PROVIDERS: PCP Family Medicine; Referring Provider Urology; Visit Provider Urology
PROC: 0TJ98ZZ Inspection of Ureter, Via Natural or Artificial Opening Endoscopic (ICD-10-PCS; CPT 52352; principal; 2022-04-03 08:40)
DX: R31.0 Gross hematuria (principal); N39.3 Stress incontinence (female) (male); R39.15 Urgency of urination; I71.40 Abdominal aortic aneurysm, without rupture, unspecified; J45.909 Unspecified asthma, uncomplicated; E78.5 Hyperlipidemia, unspecified; I10 Essential (primary) hypertension; E03.9 Hypothyroidism, unspecified; Z87.891 Personal history of nicotine dependence
CPT/HCPCS: 52332; 52352; 00910; 76000; 82962; 88108; 88305; 88313; J7120; C2617; J2405

== ENCOUNTER 2022-04-24 08:46 | Day surgery (SDC) | payer MEDICARE, SELFPAY ==
--- NOTE | 2022-04-24 09:26 | PCM.HP.STD ---
HPI - General [facility] Narrative HUBER ABREU, is a 71 F who presents for ureteroscopy and direct visualization of the left renal pelvis secondary to gross hematuria with undetermined etiology. Access to the left renal pelvis was unable to be achieved secondary to ureteral narrowing on the left side. A ureteral stent was subsequently inserted and she now presents for definitive evaluation. Informed consent has been obtained. [facility] Medical History Acute maxillary sinusitis Arthritis Asthma Back problem Chronic obstructive lung disease Diabetes Encounter for screening for malignant neoplasm of lung in current smoker with 30 pack year history or greater Former smoker Goiter Hepatomegaly High cholesterol History of tobacco use Hyperlipidemia Hypertension Hypothyroid Normal stress echocardiogram Post-menopausal Shingles Smoking greater than 40 pack years Thyroid disease Type 2 diabetes mellitus Wears dentures Wears glasses Wears partial dentures Home Medications pravastatin 20 mg tablet 20 mg PO DAILY #90 tabs 11/19/21 [Rx Last Taken Unknown] levothyroxine 75 mcg tablet 75 mcg PO DAILY #90 tabs 12/05/21 [Rx Last Taken 04/24/22] levocetirizine 5 mg tablet 5 mg PO DAILY PRN allergies #30 tabs 03/07/22 [Rx Last Taken Unknown] budesonide-formoterol HFA 160 mcg-4.5 mcg/actuation aerosol inhaler (Symbicort) 2 puff inhalation BID #10.2 grams 03/12/22 [Rx Last Taken 04/24/22] metformin 750 mg tablet,extended release 24 hr 500 mg PO BID 03/20/22 [History Last Taken Unknown] ancwbuna-fnyyhsz-nyzb-lutein tablet 1 tab PO DAILY 03/20/22 [History Last Taken Unknown] oxycodone-acetaminophen 5 mg-325 mg tablet (Percocet) 1 tab PO Q8H PRN pain 3 days #14 tabs 04/03/22 [Rx Last Taken Unknown] Allergy/AdvReac Type Severity Reaction Status Date / Time amlodipine Allergy Unknown muscle pain Verified 04/24/22 09:25 Sulfa (Sulfonamide Allergy Rash Verified 04/24/22 09:25 Antibiotics) Family History Sister Thyroid disorder Thyroid cancer Heart disease Diabetes Mother Colon cancer Ovarian cancer Diabetes Father Stomach cancer Colon cancer Brother Heart disease Grandfather Colon cancer Surgical History History of cholecystectomy History of colonoscopy Hx of cystoscopy Social History Smoking Status: Former smoker quit date: 06/29/18 pack-years: 55 Tobacco: How many years used: 55 how long ago did patient quit smokin years second hand exposure: Yes quit status: quit date established alcohol intake: never substance use type: does not use caffeine: No what type of physical activity do you participate in: none ROS Constitutional Constitutional: Reports systems reviewed and no addt'l complaints, except as documented Eyes Eyes: Reports systems reviewed and no addt'l complaints, except as documented ENT HEENT: Reports systems reviewed and no addt'l complaints, except as documented Cardiovascular Cardiovascular: Reports systems reviewed and no addt'l complaints, except as documented Respiratory/Chest Respiratory/Chest: Reports systems reviewed and no addt'l complaints, except as documented Gastrointestinal Gastrointestinal: Reports systems reviewed and no addt'l complaints, except as documented Genitourinary Genitourinary: Reports hematuria and urinary frequency Musculoskeletal Musculoskeletal: Reports systems reviewed and no addt'l complaints, except as documented Integumentary Integumentary: Reports systems reviewed and no addt'l complaints, except as documented Neurologic Neurologic: Reports systems reviewed and no addt'l complaints, except as documented Psychiatric Psychiatric: Reports systems reviewed and no addt'l complaints, except as documented Endocrine Endocrinology: Reports systems reviewed and no addt'l complaints, except as documented Hematologic/Lymphatic Hematologic/Lymphatic: Reports systems reviewed and no addt'l complaints, except as documented Allergic/Immunologic Allergic/Immunologic: Reports systems reviewed and no addt'l complaints, except as documented Physical Exam Const alert, oriented x3 and no apparent distress General Appearance: cooperative and comfortable HEENT normocephalic, head/scalp atraumatic, hearing grossly normal bilaterally, external ears normal and external nose normal Eyes conjunctivae normal General Eye: normal appearance of both eyes Neck supple General: normal visual inspection and trachea midline Lymph Lymphatic: no lymphedema noted Chest inspection of chest normal Resp normal respiratory effort, normal air movement, no retractions and no use of accessory muscles Cardio regular rate and regular rhythm GI soft to palpation, non-tender and non-distended no CVA tenderness Back/Spine no CVA tenderness Extremity normal to inspection Skin no rashes or lesions noted, no wounds and skin turgor normal Neuro oriented x3, CN's II-XII intact bilaterally and moves all extremities Psych mental status grossly normal and thought process normal Assessment & Plan Assessment/Plan (1) Hematuria: PLAN: Plan Proceed with cystoscopy, left ureteroscopy, possible left ureteral stent change
[2022-04-24 09:28] VITALS: BP 90/61; PULSE 93; RESP 16; TEMP 36.2; O2SAT 94; BMI 21.8
[2022-04-24] MEDS: Lactated Ringers 1,000 ML 15 ML IV (09:42)
[2022-04-24 10:15] LABS: Bedside Glucose 123 mg/dL (74-106)
--- NOTE | 2022-04-24 10:20 | OP.PCM_ITS ---
Report of Operation Date of Procedure: 04/24/22 Pre-Operative Diagnosis: Gross hematuria Post-Operative Diagnosis: Same Surgery/Procedure Performed:: Cystoscopy, left ureteroscopy, left ureteral stent removal Surgeon: Antonieta Razo Type of Anesthesia: General Description of Procedure: The patient is a 71-year-old female who underwent right ureteroscopy with selective cytologies for hematuria approximately 2 weeks ago. At that time the left ureter was too narrow to allow access of the ureteroscope to the renal pelvis. A left ureteral stent was inserted. She now presents for direct visu alization of her left renal collecting system. Informed consent was obtained. The patient was taken to the operating room and placed on the operating room table. She was appropriately padded and secured to the table. Anesthesia monitored the head, neck, airway, IV access and vital signs throughout the case. Once anesthesia was probably administered the patient was placed into dorsolithotomy position was prepped and draped in usual sterile fashion. The cystoscope was inserted through the urethra and direct visualization into the urinary bladder. The left ureteral stent was visualized. 8.035 Glidewire was inserted alongside the stent which was then removed. A second Glidewire was then passed alongside the first. The flexible ureteroscope was placed over the one of the Glidewire leaving 1 as a safety wire. The ureteroscope easily obtained access to the renal pelvis. Each calyx of the collecting system was directly visualized finding no evidence of mass, erythema or area of concern. The entire length of the ureter was directly visualized finding no evidence of abnormality. The safety wire was removed and the case was terminated. The patient was awakened and taken to the recovery room in good condition. There were no complications during this procedure. Grafts/Implants Used: None Complications None Admit VTE Documentation VTE Present on Admission: Yes VTE Mechan Device Prophylaxis: SCD's VTE Pharm Prophylaxis ordered?: No Reason prophylaxis not ordered:: Treatment Not Indicated
--- NOTE | 2022-04-24 10:24 | DCINST_ITS ---
Discharge Instructions Diet Discharge Diet: No restrictions Activity Discharge Activity: Return to Normal Activity Dressing / Incision Call your doctor if you observe: Fever of 101 or Higher, Inability to urinate and Inability to have a bowel movement Follow Up Care Please Follow Up With: Antonieta Razo MD When: call office for appt to be seen in 2-3 weeks Test Results: Test results from this visit will be discussed in further detail at your follow- up appointment, if applicable. Discharge Plan Admission Attending Provider: Antonieta Razo Primary Care Provider: Harjinder Castillo Discharge Orders/Prescriptions Prescriptions: New acetaminophen-codeine [acetaminophen-codeine] 300-30 mg tablet 1 - 2 tab PO Q6H PRN PRN (Reason: Pain Score 6-10/10) 3 Days Qty: 10 0RF Continued levothyroxine 75 mcg tablet 75 mcg PO DAILY Qty: 90 1RF upxzscpp-vhenshb-fhwm-lutein Tablet 1 tab PO DAILY metformin 750 mg tablet extended release 24 hr 500 mg PO BID oxycodone-acetaminophen [Percocet] 5-325 mg tablet 1 tab PO Q8H PRN (Reason: pain) 3 Days Qty: 14 0RF pravastatin 20 mg tablet 20 mg PO DAILY Qty: 90 3RF levocetirizine 5 mg tablet 5 mg PO DAILY PRN (Reason: allergies) Qty: 30 3RF budesonide-formoterol [Symbicort] 160-4.5 mcg/actuation HFA aerosol inhaler 2 puff inhalation BID Qty: 10.2 4RF Referrals / Follow Up: Harjinder Castillo DO [Primary Care Provider] - Disposition Disposition (needs filled in before D/C Order can be placed): Home, Self Care
[2022-04-24] MEDS: Cefazolin 2 GM in 0.9% Normal Saline 100 ML IV (10:41)
[2022-04-24 11:03] VITALS: BP 89/49; BP 90/61; PULSE 77; RESP 16; TEMP 37.2; O2SAT 99
[2022-04-24 11:15] VITALS: BP 90/61; BP 91/58; PULSE 88; RESP 16; O2SAT 95
[2022-04-24 11:25] LABS: Bedside Glucose 106 mg/dL (74-106)
[2022-04-24 11:30] VITALS: BP 117/58; BP 90/61; PULSE 82; RESP 16; TEMP 36.5; O2SAT 95
[2022-04-24 11:45] VITALS: BP 90/61
== END 2022-04-24 11:55 | disposition home or self-care (01) ==
LOC: SDC 08:52 → AC 08:52
PROVIDERS: PCP Family Medicine; Visit Provider Urology
PROC: 0TJ98ZZ Inspection of Ureter, Via Natural or Artificial Opening Endoscopic (ICD-10-PCS; CPT 52352; principal; 2022-04-24 10:05)
DX: J44.9 Chronic obstructive pulmonary disease, unspecified (principal); E11.9 Type 2 diabetes mellitus without complications; E78.00 Pure hypercholesterolemia, unspecified; E03.9 Hypothyroidism, unspecified; Z87.891 Personal history of nicotine dependence; Z79.899 Other long term (current) drug therapy; Z79.84 Long term (current) use of oral hypoglycemic drugs
CPT/HCPCS: 52332; 52344; 00910; 76000; 82962; J7120; J2405

== ENCOUNTER 2022-04-27 10:08 | Inpatient (IN) | payer MEDICARE, SELFPAY ==
[2022-04-27] VITALS (10 sets, daily range): BP systolic 81–136; BP diastolic 52–76; PULSE 85–106; RESP 16–24; TEMP 36.5–37.2; O2SAT 92–96; BMI 21.2
[2022-04-27 11:01] LABS: Absolute Lymphocyte Count 3.47 X10^3/uL (0.83-4.51); Absolute Neutrophil Count 8.1 X10^3/uL (2.0-7.7); Basophil# 0.06 X10^3/uL; Basophil% 0.5 % (0-1); Eosinophil# 0.01 X10^3/uL; Eosinophils% 0.1 % (0-5); Hematocrit 39.7 % (37-47); Hemoglobin 13.3 g/dL (12.0-15.0); Lymphocyte # 3.47 X10^3/ul (0.83-4.51); Lymphocyte % 26.6 % (19-41); Mean Corp Hgb Conc 33.5 g/dL (32-36); Mean Corpuscular Volume 95.4 fL (81-99); Mean Platelet Vol. 9.6 fl (6.2-12.0); Monocyte# 1.29 X10^3/uL; Monocyte% 9.9 % (0-10); NRBC Flagged by Analyzer 0 % (0-5); Neutrophil # 8.11 X10^3/uL (2.7-7.7); Neutrophil % 62.1 % (47-70); Platelet Count 402 K/mm3 (150-450); RBC Distribution Width CV 12.7 % (11.6-14.6); RBC Distribution Width SD 44.3 fl (35.1-43.9); Red Blood Count 4.16 M/mm3 (4.2-5.4)
[2022-04-27 11:15] LABS: Anion Gap 9 (5-15); BUN 23 mg/dL (7-18); BUN/Creat Ratio 17.7 RATIO (10-20); Calcium,Total 9.1 mg/dL (8.5-10.1); Chloride 100 mmol/L (98-107); EST Glomerular Filtration Rate 43 mL/min (>60); Est Glom Filt Rate - Afr Amer 52 mL/min (>60); Estimated Creatinine Clearance 33.78 ml/min; Glucose 129 mg/dL (74-106); Potassium 3.5 mmol/L (3.5-5.1); Sodium Level 137 mmol/L (136-145)
--- NOTE | 2022-04-27 11:46 | CT_ITS ---
EXAM: CT ABDOMEN AND PELVIS WITH INTRAVENOUS CONTRAST CLINICAL INDICATION: fever, abdominal pain TECHNIQUE: Helically acquired images were obtained of the abdomen and pelvis with intravenous contrast. This CT exam was performed using one or more of the following dose reduction techniques: automated exposure control, adjustment of the mA and/or kV according to patient size, and/or use of iterative reconstruction technique. This report was created using [employer] report generation technology. CONTRAST: IV 75mL [id number] COMPARISON: CT Abdomen Pelvis dated 11/22/2021 FINDINGS: LOWER THORAX: Emphysematous changes of the lung bases noted. ABDOMEN: LIVER: Moderate hepatic steatosis. GALLBLADDER AND BILE DUCTS: Gallbladder is not visualized. No intra- or extrahepatic biliary ductal dilation. PANCREAS: Normal. No focal cystic or solid mass. SPLEEN: Normal. Normal size without focal cystic or solid mass. ADRENALS: Normal. No nodules. KIDNEYS AND URETERS: Focal areas of abnormal nephrogram noted to involve the upper and inner pole region of the left kidney which was not present on prior exam and are consistent with changes of acute pyelonephritis. Stable 3.5 cm cyst arising from the lower pole of the left kidney. Cortical loss involving the lower pole left kidney is unchanged. Right kidney is normal in appearance. STOMACH AND BOWEL: Diverticulosis of the colon noted without evidence of acute diverticulitis. PELVIS: APPENDIX: Appendix is visualized and normal in appearance. BLADDER: Normal. REPRODUCTIVE: Unremarkable as visualized. No mass. ABDOMEN and PELVIS: INTRAPERITONEAL SPACE: Normal. No ascites or other fluid collection. No free air. BONES/JOINTS: Normal. No suspicious lytic or blastic abnormality. SOFT TISSUES: Normal. No discrete abdominal or pelvic wall hernia. VASCULATURE: 3.4 cm infrarenal abdominal aortic aneurysm is stable. LYMPH NODES: Normal. No enlarged lymph nodes. CT/Abdomen/Pelvis W IV Cont ONLY IMPRESSION: 1. Left-sided acute pyelonephritis. 2. Hepatic steatosis. 3. Diverticulosis coli. 4. Pulmonary emphysema. Electronically Signed: Donta Villanueva MD at 13:07 EDT ,
--- NOTE | 2022-04-27 11:47 | EKG12_ITS ---
Test Reason : WEAKNESS/SOB Blood Pressure : / mmHG Vent. Rate : 079 BPM Atrial Rate : 079 BPM P-R Int : 152 ms QRS Dur : 088 ms QT Int : 382 ms P-R-T Axes : 069 030 060 degrees QTc Int : 438 ms Normal sinus rhythm with sinus arrhythmia Normal ECG Confirmed by BATSHEVA ARROYO, YAHIR ([id number]), assistant production editor JUSTIN NIÑO ([id number]) on 04/29/2022 1:04:25 PM Referred By: Confirmed By:YAHIR HERMAN MD
--- NOTE | 2022-04-27 11:49 | RAD_ITS ---
EXAM: XR CHEST, 2 VIEWS CLINICAL INDICATION: fever, cough TECHNIQUE: Frontal and lateral views of the chest. This report was created using [employer] report generation technology. COMPARISON: XR Chest dated february 19 2018 FINDINGS: LUNGS AND PLEURAL SPACES: Hyperinflation suggesting emphysema. No air space opacification of the lungs. No pneumothorax. No effusion. HEART: Normal heart size. MEDIASTINUM: No mediastinal or hilar mass. BONES/JOINTS: No acute abnormality. SOFT TISSUES: Normal. RAD/Chest PA and Lateral IMPRESSION: No acute cardiopulmonary abnormality. COPD. Electronically Signed: Donta Villanueva MD at 13:09 EDT ,
[2022-04-27 12:19] LABS: Bacteria 0 SEEN /hpf (None Seen); Mucous, Urine 0 SEEN /hpf (<or=2+)
[2022-04-27] MEDS: 0.9% Normal Saline 1,000 ML 1000 ML IV (12:22)
[2022-04-27 12:26] LABS: Color, Urine Yellow (Yellow); Glucose, Dipstick Normal (Normal); Ketone-Dipstick 15 mg/dl (Negative); Leukocyte Esterase-Dipstick 100 /ul (Negative); Nitrite-Dipstick Negative (Negative); Occult Blood-Urine 25 /ul (Negative); Protein-Dipstick 100 mg/dl (Negative); Urine Bilirubin Dipstick Negative (Negative); Urine Clarity Clear (Clear); Urine Urobilinogen Normal (Normal)
[2022-04-27 12:31] LABS: Squamous Epithelial Cells - UA 0-5 SEEN /hpf (5-10); White Blood Cells 5-10 SEEN /hpf (0-5)
[2022-04-27 12:32] LABS: Red Blood Cells-Urine 0-5 SEEN /hpf (0-5)
[2022-04-27 12:39] LABS: International Normalized Ratio 1.2; Prothrombin Time (Protime)PT. 14.9 SECONDS (11.7-14.9)
[2022-04-27 12:41] LABS: AST(SGOT) 18 U/L (15-37); Alanine Aminotransfer ALT/SGPT 33 U/L (13-56); Alkaline Phosphatase 72 U/L (45-117); Bilirubin, Direct 0.12 mg/dL (0.00-0.30); CPK Total, Creatine Kinase 59 U/L (26-192); Globulin 4.6 g/dL (2.2-4.2); Lipase 106 U/L (73-393); Protein, Total 7.6 g/dL (6.4-8.2)
[2022-04-27 13:06] LABS: Lactic Acid 2.3 mmol/L (0.4-1.9)
[2022-04-27] MEDS: Ceftriaxone 1 GM/50 ML BAG IV (14:11)
--- NOTE | 2022-04-27 14:39 | EDS_ITS ---
HPI History of Present Illness Chief Complaint: General Illness Informant: patient Narrative Narrative: Is a 71-year-old female with history of AAA that is monitored, hyperlipidemia, diabetes mellitus, hypertension (not currently on any medications) and hypothyroid presenting with generalized weakness and outpatient fever. Patient has been more tired and weak for the past 2 days. She is a decreased appetite. She had a fever of 103.2 ?F at home. She has had chronic cough productive of clear sputum and has chronic shortness of breath but this is unchanged from baseline. She denies any upper respiratory symptoms. Denies any chest pain. Denies any nausea, vomiting but does have some vague abdominal pain. She states she is having increased body aches and also has some low back pain. She had cystoscopy on 04/24 (3 days ago) for gross hematuria with Dr. Razo. [facility] Medical History Acute maxillary sinusitis Acute pyelonephritis Arthritis Asthma Back problem Chronic obstructive lung disease Diabetes Encounter for screening for malignant neoplasm of lung in current smoker with 30 pack year history or greater Former smoker Goiter Hepatomegaly High cholesterol History of tobacco use Hyperlipidemia Hypertension Hypothyroid Normal stress echocardiogram Post-menopausal Shingles Smoking greater than 40 pack years Thyroid disease Type 2 diabetes mellitus Wears dentures Wears glasses Wears partial dentures Home Medications pravastatin 20 mg tablet 20 mg PO DAILY #90 tabs 11/19/21 [Rx Last Taken Unknown] levothyroxine 75 mcg tablet 75 mcg PO DAILY #90 tabs 12/05/21 [Rx Last Taken 04/24/22] levocetirizine 5 mg tablet 5 mg PO DAILY PRN allergies #30 tabs 03/07/22 [Rx Last Taken Unknown] budesonide-formoterol HFA 160 mcg-4.5 mcg/actuation aerosol inhaler (Symbicort) 2 puff inhalation BID #10.2 grams 03/12/22 [Rx Last Taken 04/24/22] metformin 750 mg tablet,extended release 24 hr 500 mg PO BID 03/20/22 [History Last Taken Unknown] nnngthyd-lwfkluf-lhjb-lutein tablet 1 tab PO DAILY 03/20/22 [History Last Taken Unknown] oxycodone-acetaminophen 5 mg-325 mg tablet (Percocet) 1 tab PO Q8H PRN pain 3 days #14 tabs 04/03/22 [Rx Last Taken Unknown] acetaminophen 300 mg-codeine 30 mg tablet 1 - 2 tab PO Q6H PRN PRN Pain Score 6- 10/10 3 days #10 TABLETS 04/24/22 [Rx Last Taken Unknown] Allergy/AdvReac Type Severity Reaction Status Date / Time amlodipine Allergy Unknown muscle pain Verified 04/27/22 10:12 Sulfa (Sulfonamide Allergy Rash Verified 04/27/22 10:12 Antibiotics) Family History Sister Thyroid disorder Thyroid cancer Heart disease Diabetes Mother Colon cancer Ovarian cancer Diabetes Father Stomach cancer Colon cancer Brother Heart disease Grandfather Colon cancer Surgical History History of cholecystectomy History of colonoscopy Hx of cystoscopy Social History Smoking Status: Former smoker quit date: 06/29/18 pack-years: 55 Tobacco: How many years used: 55 how long ago did patient quit smokin years second hand exposure: Yes quit status: quit date established alcohol intake: never substance use type: does not use caffeine: No what type of physical activity do you participate in: none ROS ROS ED Constitutional Constitutional ED: Reports chills and fever(s) Eyes Eyes: Denies change in vision ENT ENT ED: Denies rhinorrhea or sore throat Cardiovascular Cardiovascular: Denies chest pain or palpitations Respiratory/Chest Respiratory/Chest: Reports cough; Denies dyspnea Gastrointestinal Gastrointestinal: Reports abdominal pain; Denies diarrhea, nausea or vomiting Genitourinary Genitourinary ED: Denies dysuria or hematuria Musculoskeletal Musculoskeletal: Reports back pain and myalgias Integumentary Denies rash Neurologic Neurologic: Reports weakness; Denies headache(s) Psychiatric Psychiatric: Denies anxiety or depression Hematologic/Lymphatic Hematologic/Lymphatic: Denies easy bleeding or easy bruising EXAM Physical Exam Const Vital Signs: 04/27/22 10:09 04/27/22 10:15 04/27/22 10:19 Temperature 98.3 F Temperature Source Oral Pulse Rate 106 H 102 H Respiratory Rate 18 24 H Respiratory Effort Non-Labored Short of Breath Blood Pressure 81/52 L 90/70 Blood Pressure Mean 61 76 Pulse Ox 96 96 Oxygen Delivery Method Room Air Room Air 04/27/22 10:12 04/27/22 12:08 04/27/22 14:00 Temperature 98.3 F 97.7 F L 98.7 F Temperature Source Oral Temporal Temporal Pulse Rate 102 H 88 85 Respiratory Rate 24 H 22 H 23 H Respiratory Effort Blood Pressure 90/70 93/67 109/65 Blood Pressure Mean 76 75 79 Pulse Ox 96 94 92 Oxygen Delivery Method Room Air Room Air Room Air Positive well nourished and well developed General Appearance ED: well developed and NAD HEENT Reports dry mucous membranes Negative for trauma Mouth ED: Yes dry mucous membranes Mouth: dry mucous membranes Eyes PERRL and EOMs intact bilaterally Neck supple Neck Narrative: No meningeal signs Chest Wall inspection of chest normal and palpation of chest normal Resp normal respiratory effort and clear to auscultation bilaterally Cardio regular rate, regular rhythm and no murmurs GI normal to inspection, nondistended, normoactive bowel sounds Palpation: tender LUQ and periumbilical Back/Spine General Back: CVA tenderness left Extremity normal to inspection Neuro oriented x3 Sensorium / Orientation: alert Motor Exam: general weakness Psych mental status grossly normal Skin no rashes or lesions noted and no wounds MDM MDM MDM Narrative Medical decision making narrative: Patient [place] for generalized malaise, fever and myalgias. She is also decreased appetite. Patient is worried she might have something wrong with her aortic abdominal aneurysm however I explained to her that AAA do not cause fever and I am more concerned about infection somewhere. Patient had cystoscopy and stent removal 3 days ago. She has a leukocytosis of 13, mild elevation of her creatinine to 1.3, elevated lactate at 2.3 and urinalysis that shows 5-10 white blood cells but no bacteria. CT of the abdomen and pelvis with IV contrast shows left-sided acute pyelonephritis. Given her recent instrumentation I am concerned that this is the source of her symptoms. She started IV Rocephin. Urine culture from October was pansensitive E. coli. Patient is admitted to the hospital service. I did discuss the case with her urologist who will see the patient on consult but does not feel that any surgical intervention is needed at this time as she does not have any hydronephrosis. Patient is agreeable this plan of care. She is given IV fluids in the ER. Lab Data Attestation: I reviewed the patient's lab results. Labs: Laboratory Results - last 24 hr 04/27/22 04/27/22 04/27/22 10:22 10:22 10:22 WBC 13.0 H RBC 4.16 L Hgb 13.3 Hct 39.7 MCV 95.4 MCH 32.0 MCHC 33.5 RDW Std Deviation 44.3 H RDW Coeff of Ginny 12.7 Plt Count 402 MPV 9.6 Immature Gran % (Auto) 0.800 Neut % (Auto) 62.1 Lymph % (Auto) 26.6 Simpson % (Auto) 9.9 Eos % (Auto) 0.1 Baso % (Auto) 0.5 Absolute Neuts (auto) 8.1 H Absolute Lymphs (auto) 3.47 Nucleated RBC % 0 PT 14.9 INR 1.2 Sodium 137 Potassium 3.5 Chloride 100 Carbon Dioxide 28.0 Anion Gap 9 BUN 23 H Creatinine 1.30 H Estim Creat Clear Calc 33.78 Est GFR (MDRD) Af Amer 52 L Est GFR (MDRD) Non-Af 43 L BUN/Creatinine Ratio 17.7 Glucose 129 H Lactic Acid Calcium 9.1 Total Bilirubin Direct Bilirubin AST ALT Alkaline Phosphatase Total Creatine Kinase Total Protein Albumin Globulin Lipase Urine Color Urine Clarity Urine pH Ur Specific Gridley Urine Protein Urine Glucose (UA) Urine Ketones Urine Occult Blood Urine Nitrite Urine Bilirubin Urine Urobilinogen Ur Leukocyte Esterase Urine RBC Urine WBC Ur Squamous Epith Cells Urine Bacteria Urine Mucus 04/27/22 04/27/22 04/27/22 12:15 12:18 12:18 WBC RBC Hgb Hct MCV MCH MCHC RDW Std Deviation RDW Coeff of Ginny Plt Count MPV Immature Gran % (Auto) Neut % (Auto) Lymph % (Auto) Simpson % (Auto) Eos % (Auto) Baso % (Auto) Absolute Neuts (auto) Absolute Lymphs (auto) Nucleated RBC % PT INR Sodium Potassium Chloride Carbon Dioxide Anion Gap BUN Creatinine Estim Creat Clear Calc Est GFR (MDRD) Af Amer Est GFR (MDRD) Non-Af BUN/Creatinine Ratio Glucose Lactic Acid 2.3 H* Calcium Total Bilirubin 0.30 Direct Bilirubin 0.12 AST 18 ALT 33 Alkaline Phosphatase 72 Total Creatine Kinase 59 Total Protein 7.6 Albumin 3.0 L Globulin 4.6 H Lipase 106 Urine Color Yellow Urine Clarity Clear Urine pH 5.0 Ur Specific [place] 1.020 Urine Protein 100 H Urine Glucose (UA) Normal Urine Ketones 15 H Urine Occult Blood 25 H Urine Nitrite Negative Urine Bilirubin Negative Urine Urobilinogen Normal Ur Leukocyte Esterase 100 H Urine RBC 0-5 SEEN Urine WBC 5-10 SEEN Ur Squamous Epith Cells 0-5 SEEN Urine Bacteria 0 SEEN Urine Mucus 0 SEEN Radiography Diagnostic Testing: Clinical Impression(s) from Imaging Studies Abdomen/Pelvis CT 04/27/22 11:46 IMPRESSION: 1. Left-sided acute pyelonephritis. 2. Hepatic steatosis. 3. Diverticulosis coli. 4. Pulmonary emphysema. Electronically Signed: Donta Villanueva MD at 13:07 EDT , Chest X-Ray 04/27/22 11:49 IMPRESSION: No acute cardiopulmonary abnormality. COPD. Electronically Signed: Donta Villanueva MD at 13:09 EDT , Rhythm Strip Rhythm Strip: Sinus Rhythm Rate: 79 Ectopy: None EKG Initial EKG: Attestation: I personally reviewed and interpreted this EKG as follows: Interpretation: Sinus Rhythm Comments: Normal sinus rhythm at a rate of 79 with sinus arrhythmia Normal axis Normal intervals Normal ST segments Discharge Plan Dx/Rx/DC Orders Clinical Impression: Acute pyelonephritis, Leukocytosis Disposition Disposition: [facility] Discharge Date/Time: 04/27/22 15:29
[2022-04-27 16:22] LABS: Reflex Lactate? Y
--- NOTE | 2022-04-27 16:34 | PCM.CONS.GEN ---
Assessment & Plan Assessment/Plan (1) Acute pyelonephritis: (2) Hematuria: PLAN: Plan Continue supportive care Antibiotics Await urinary culture results Appreciate medicine management HPI Consult Data Date of Consult: 04/27/22 HPI Narrative Reason for Consultation: Acute pyelonephritis HPI Narrative: HUBER ABREU, is a 71 F who presented To the emergency room after having developed a fever and not feeling well at home yesterday. She recently underwent a cystoscopy with right ureteroscopy and left ureteral stent insertion which was followed with a left ureteroscopy on . This was done as part of a full evaluation for gross hematuria. This is likely the source for her pyelonephritis. She reports at home that her main symptom was fever. There has been no urgency, frequency, hematuria. She has not had any dysuria. She has not been having nausea or vomiting. She reports that she feels fatigue and similar to flulike symptoms. [facility] Medical History (Updated 04/27/22 @ 16:[address] Antonieta Razo MD) Acute maxillary sinusitis Acute pyelonephritis Arthritis Asthma Back problem Chronic obstructive lung disease Diabetes Encounter for screening for malignant neoplasm of lung in current smoker with 30 pack year history or greater Former smoker Goiter Hepatomegaly High cholesterol History of tobacco use Hyperlipidemia Hypertension Hypothyroid Normal stress echocardiogram Post-menopausal Shingles Smoking greater than 40 pack years Thyroid disease Type 2 diabetes mellitus Wears dentures Wears glasses Wears partial dentures Home Medications pravastatin 20 mg tablet 20 mg PO DAILY #90 tabs 11/19/21 [Rx Last Taken Unknown] levothyroxine 75 mcg tablet 75 mcg PO DAILY #90 tabs 12/05/21 [Rx Last Taken 04/24/22] levocetirizine 5 mg tablet 5 mg PO DAILY PRN allergies #30 tabs 03/07/22 [Rx Last Taken Unknown] budesonide-formoterol HFA 160 mcg-4.5 mcg/actuation aerosol inhaler (Symbicort) 2 puff inhalation BID #10.2 grams 03/12/22 [Rx Last Taken 04/24/22] metformin 750 mg tablet,extended release 24 hr 500 mg PO BID 03/20/22 [History Last Taken Unknown] ncrzimsj-dkyaktv-yegf-lutein tablet 1 tab PO DAILY 03/20/22 [History Last Taken Unknown] oxycodone-acetaminophen 5 mg-325 mg tablet (Percocet) 1 tab PO Q8H PRN pain 3 days #14 tabs 04/03/22 [Rx Last Taken Unknown] acetaminophen 300 mg-codeine 30 mg tablet 1 - 2 tab PO Q6H PRN PRN Pain Score 6-10/10 3 days #10 TABLETS 04/24/22 [Rx Last Taken Unknown] Allergy/AdvReac Type Severity Reaction Status Date / Time amlodipine Allergy Unknown muscle pain Verified 04/27/22 10:12 Sulfa (Sulfonamide Allergy Rash Verified 04/27/22 10:12 Antibiotics) Family History Sister Thyroid disorder Thyroid cancer Heart disease Diabetes Mother Colon cancer Ovarian cancer Diabetes Father Stomach cancer Colon cancer Brother Heart disease Grandfather Colon cancer Surgical History History of cholecystectomy History of colonoscopy Hx of cystoscopy Social History Smoking Status: Former smoker quit date: 06/29/18 pack-years: 55 Tobacco: How many years used: 55 how long ago did patient quit smokin years second hand exposure: Yes quit status: quit date established alcohol intake: never substance use type: does not use caffeine: No what type of physical activity do you participate in: none ROS Constitutional Constitutional: Reports body ache(s), fatigue, fever(s) and weakness Eyes Eyes: Reports systems reviewed and no addt'l complaints, except as documented ENT HEENT: Reports systems reviewed and no addt'l complaints, except as documented Cardiovascular Cardiovascular: Denies chest pain, dyspnea, tachypnea or vomiting Respiratory/Chest Respiratory/Chest: Denies chest congestion, chest tightness, cough or dyspnea Gastrointestinal Gastrointestinal: Denies abdominal pain, nausea or vomiting Genitourinary Genitourinary: Denies difficulty urinating, dysuria, flank pain, hematuria, urinary frequency or urinary urgency Musculoskeletal Musculoskeletal: Reports myalgias Integumentary Integumentary: Reports systems reviewed and no addt'l complaints, except as documented Neurologic Neurologic: Reports systems reviewed and no addt'l complaints, except as documented Psychiatric Psychiatric: Reports systems reviewed and no addt'l complaints, except as documented Endocrine Endocrinology: Reports systems reviewed and no addt'l complaints, except as documented Hematologic/Lymphatic Hematologic/Lymphatic: Reports systems reviewed and no addt'l complaints, except as documented Allergic/Immunologic Allergic/Immunologic: Reports systems reviewed and no addt'l complaints, except as documented Physical Exam Const alert, oriented x3 and no apparent distress General Appearance: cooperative and comfortable HEENT normocephalic, hearing grossly normal bilaterally, external ears normal, external nose normal and moist oral mucous membranes Eyes General Eye: normal appearance of both eyes Neck supple General: normal visual inspection and trachea midline Lymph Lymphatic: no lymphedema noted Chest inspection of chest normal Resp normal respiratory effort, normal air movement and no retractions Cardio regular rate and regular rhythm GI soft to palpation, non-tender and non-distended Bladder / Kidney Exam: CVA tenderness left Back/Spine General Back: CVA tenderness left Extremity normal to inspection Skin no rashes or lesions noted, no wounds and skin turgor normal Neuro oriented x3, CN's II-XII intact bilaterally and moves all extremities Psych mental status grossly normal and thought process normal Lab / Micro Data Result Diagrams: 04/27/22 10:22 04/27/22 10:22 Labs: Laboratory Results - last 24 hr 04/27/22 10:22: WBC 13.0 H, RBC 4.16 L, Hgb 13.3, Hct 39.7, MCV 95.4, MCH 32.0, MCHC 33.5, RDW Std Deviation 44.3 H, RDW Coeff of Ginny 12.7, Plt Count 402, MPV 9.6, Immature Gran % (Auto) 0.800, Neut % (Auto) 62.1, Lymph % (Auto) 26.6, [place] % (Auto) 9.9, Eos % (Auto) 0.1, Baso % (Auto) 0.5, Absolute Neuts (auto) 8.1 H, Absolute Lymphs (auto) 3.47, Nucleated RBC % 0 04/27/22 10:22: Sodium 137, Potassium 3.5, Chloride 100, Carbon Dioxide 28.0, Anion Gap 9, BUN 23 H, Creatinine 1.30 H, Estim Creat Clear Calc 33.78, Est GFR (MDRD) Af Amer 52 L, Est GFR (MDRD) Non-Af 43 L, BUN/Creatinine Ratio 17.7, Glucose 129 H, Calcium 9.1 04/27/22 10:22: PT 14.9, INR 1.2 04/27/22 12:15: Urine Color Yellow, Urine Clarity Clear, Urine pH 5.0, Ur Specific [place] 1.020, Urine Protein 100 H, Urine Glucose (UA) Normal, Urine Ketones 15 H, Urine Occult Blood 25 H, Urine Nitrite Negative, Urine Bilirubin Negative, Urine Urobilinogen Normal, Ur Leukocyte Esterase 100 H, Urine RBC 0-5 SEEN, Urine WBC 5-10 SEEN, Ur Squamous Epith Cells 0-5 SEEN, Urine Bacteria 0 SEEN, Urine Mucus 0 SEEN 04/27/22 12:18: Total Bilirubin 0.30, Direct Bilirubin 0.12, AST 18, ALT 33, Alkaline Phosphatase 72, Total Creatine Kinase 59, Total Protein 7.6, Albumin 3.0 L, Globulin 4.6 H, Lipase 106 04/27/22 12:18: Lactic Acid 2.3 H* Micro: Microbiology 04/27/22 12:00 Nasal Secretion SARS-CoV-2 & FLU Antigen (Rapid) - Final Radiology Impression Abdomen/Pelvis CT 04/27/22 11:46 IMPRESSION: 1. Left-sided acute pyelonephritis. 2. Hepatic steatosis. 3. Diverticulosis coli. 4. Pulmonary emphysema. Electronically Signed: Donta Villanueva MD at 13:07 EDT , Chest X-Ray 04/27/22 11:49 IMPRESSION: No acute cardiopulmonary abnormality. COPD. Electronically Signed: Donta Villanueva MD at 13:09 EDT ,
--- NOTE | 2022-04-27 16:46 | PCM.HP.STD ---
HPI - General General Date of Admission: 04/27/22 Date of Service: 04/27/22 Chief Complaint: Fever, chills HPI Narrative HUBER ABREU, is a 71 F who presents to the emergency room at [facility] with chief complaint of fever, chills, and malaise over the past 24 hours. Patient had a urological procedure done on 04/24/2022 for removal of left ureteral stent, she had cystoscopy due to hematuria and a stent had been placed a couple of weeks prior to this for later visualization of the left ureter. The etiology of the hematuria was not discovered and the stent was removed on 04/24/2022. Labs obtained today in the emergency room showed an elevated white blood cell count, patient's urine showed 5-10 WBCs and 0 bacteria, leukocyte Estrace was 100. Patient had a CT of her abdomen and pelvis which showed left-sided acute pyelonephritis and fatty liver disease, emphysema was also noted to be present. Patient was given IV fluids in the emergency room and started on IV Rocephin, she will be admitted to the hospitalist service with urology to consult. [facility] Medical History (Updated 04/27/22 @ 16:[address] Nuzhat Ellington, DO) Acute maxillary sinusitis Acute pyelonephritis Arthritis Asthma Back problem Chronic obstructive lung disease Diabetes Encounter for screening for malignant neoplasm of lung in current smoker with 30 pack year history or greater Former smoker Goiter Hepatomegaly High cholesterol History of tobacco use Hyperlipidemia Hypertension Hypothyroid Normal stress echocardiogram Post-menopausal Shingles Smoking greater than 40 pack years Thyroid disease Type 2 diabetes mellitus Wears dentures Wears glasses Wears partial dentures Home Medications pravastatin 20 mg tablet 20 mg PO DAILY #90 tabs 11/19/21 [Rx Last Taken Unknown] levothyroxine 75 mcg tablet 75 mcg PO DAILY #90 tabs 12/05/21 [Rx Last Taken 04/24/22] levocetirizine 5 mg tablet 5 mg PO DAILY PRN allergies #30 tabs 03/07/22 [Rx Last Taken Unknown] budesonide-formoterol HFA 160 mcg-4.5 mcg/actuation aerosol inhaler (Symbicort) 2 puff inhalation BID #10.2 grams 03/12/22 [Rx Last Taken 04/24/22] metformin 750 mg tablet,extended release 24 hr 500 mg PO BID 03/20/22 [History Last Taken Unknown] hamqhttp-xguwcbx-phps-lutein tablet 1 tab PO DAILY 03/20/22 [History Last Taken Unknown] oxycodone-acetaminophen 5 mg-325 mg tablet (Percocet) 1 tab PO Q8H PRN pain 3 days #14 tabs 04/03/22 [Rx Last Taken Unknown] acetaminophen 300 mg-codeine 30 mg tablet 1 - 2 tab PO Q6H PRN PRN Pain Score 6-10/10 3 days #10 TABLETS 04/24/22 [Rx Last Taken Unknown] Allergy/AdvReac Type Severity Reaction Status Date / Time amlodipine Allergy Unknown muscle pain Verified 04/27/22 10:12 Sulfa (Sulfonamide Allergy Rash Verified 04/27/22 10:12 Antibiotics) Family History Sister Thyroid disorder Thyroid cancer Heart disease Diabetes Mother Colon cancer Ovarian cancer Diabetes Father Stomach cancer Colon cancer Brother Heart disease Grandfather Colon cancer Surgical History History of cholecystectomy History of colonoscopy Hx of cystoscopy Social History Smoking Status: Former smoker quit date: 06/29/18 pack-years: 55 Tobacco: How many years used: 55 how long ago did patient quit smokin years second hand exposure: Yes quit status: quit date established alcohol intake: never substance use type: does not use caffeine: No what type of physical activity do you participate in: none ROS Constitutional Constitutional: Reports chills, fever(s) and malaise; Denies anorexia, change in weight, night sweats or weakness Eyes Eyes: Denies blurry vision, change in eye color, change in vision, discharge from eye(s) or eye pain Cardiovascular Cardiovascular: Denies chest pain, claudication, dyspnea on exertion, edema or palpitations Respiratory/Chest Respiratory/Chest: Denies cough, excessive phlegm production, hemoptysis, productive cough, shortness of breath at rest or shortness of breath with exertion Gastrointestinal Gastrointestinal: Denies abdominal pain, coffee ground emesis, constipation, diarrhea, dyspepsia, hematemesis, hematochezia, melena, nausea or vomiting Genitourinary Genitourinary: Denies difficulty urinating, dysuria, hematuria, nocturia, urinary frequency, urinary hesitancy, urinary incontinence or urinary urgency Musculoskeletal Musculoskeletal: Denies back pain, joint pain, joint stiffness, joint swelling, myalgias or neck pain Neurologic Neurologic: Denies abnormal gait, abnormal speech, dizziness, focal weakness, headache(s), loss of vision, numbness, other visual disturbances, paresthesias, syncope or tingling Psychiatric Psychiatric: Denies anxiety, cognitive impairment, depression, irritability, mood swings or suicidal ideation Endocrine Endocrinology: Denies change in body appearance, cold intolerance, excessive sweating, heat intolerance, polydipsia or polyuria Hematologic/Lymphatic Hematologic/Lymphatic: Denies none, anemia, easy bleeding, easy bruising or lymphadenopathy Allergic/Immunologic Allergic/Immunologic: Denies rhinitis, urticaria, eczemia or asthma Vital Signs Vital Signs Vital Signs: 04/27/22 10:09 04/27/22 10:15 04/27/22 10:19 Temperature 98.3 F Temperature Source Oral Pulse Rate 106 H 102 H Respiratory Rate 18 24 H Respiratory Effort Non-Labored Short of Breath Blood Pressure 81/52 L 90/70 Blood Pressure Mean 61 76 Pulse Ox 96 96 Oxygen Delivery Method Room Air Room Air 04/27/22 10:12 04/27/22 12:08 04/27/22 14:37 Temperature 98.3 F 97.7 F L 98.7 F Temperature Source Oral Temporal Temporal Pulse Rate 102 H 88 85 Respiratory Rate 24 H 22 H 23 H Respiratory Effort Blood Pressure 90/70 93/67 109/65 Blood Pressure Mean 76 75 79 Pulse Ox 96 94 92 Oxygen Delivery Method Room Air Room Air Room Air 04/27/22 14:00 Temperature 98.7 F Temperature Source Temporal Pulse Rate 85 Respiratory Rate 23 H Respiratory Effort Blood Pressure 109/65 Blood Pressure Mean 79 Pulse Ox 92 Oxygen Delivery Method Room Air Weight Weight: 56.245 kg Body Mass Index (BMI) 21.2 Physical Exam Const alert, oriented x3, no apparent distress and healthy appearing General Appearance: cooperative, well kempt and well developed Orientation / Consciousness: awake, oriented to person, oriented to place and oriented to time HEENT normocephalic and moist oral mucous membranes Eyes PERRL, EOMs intact bilaterally and conjunctivae normal Neck supple, no JVD, thyroid normal and no carotid bruits General: trachea midline Resp normal respiratory effort Resp Narrative: Scattered expiratory wheezes are noted over the right lung field Auscultation: wheezes; Negative for rales or rhonchi Cardio regular rate, regular rhythm, S1 normal heart sound, S2 normal heart sound, no murmurs, no rub and no gallops GI normal to inspection, nondistended, normoactive bowel sounds, soft to palpation, non-tender and non-distended Extremity no clubbing, cyanosis or edema Skin no rashes or lesions noted General Skin Exam: no breakdown Neuro oriented x3, CN's II-XII intact bilaterally, no focal motor deficits and no sensory deficits noted Sensorium / Orientation: awake and alert Speech: speech normal Psych affect normal Results Lab / Micro Data Result Diagrams: 04/27/22 10:04/27/22 10:22 Labs: Laboratory Results - last 24 hr 04/27/22 10:22: WBC 13.0 H, RBC 4.16 L, Hgb 13.3, Hct 39.7, MCV 95.4, MCH 32.0, MCHC 33.5, RDW Std Deviation 44.3 H, RDW Coeff of Ginny 12.7, Plt Count 402, MPV 9.6, Immature Gran % (Auto) 0.800, Neut % (Auto) 62.1, Lymph % (Auto) 26.6, [place] % (Auto) 9.9, Eos % (Auto) 0.1, Baso % (Auto) 0.5, Absolute Neuts (auto) 8.1 H, Absolute Lymphs (auto) 3.47, Nucleated RBC % 0 04/27/22 10:22: Sodium 137, Potassium 3.5, Chloride 100, Carbon Dioxide 28.0, Anion Gap 9, BUN 23 H, Creatinine 1.30 H, Estim Creat Clear Calc 33.78, Est GFR (MDRD) Af Amer 52 L, Est GFR (MDRD) Non-Af 43 L, BUN/Creatinine Ratio 17.7, Glucose 129 H, Calcium 9.1 04/27/22 10:22: PT 14.9, INR 1.2 04/27/22 12:15: Urine Color Yellow, Urine Clarity Clear, Urine pH 5.0, Ur Specific [place] 1.020, Urine Protein 100 H, Urine Glucose (UA) Normal, Urine Ketones 15 H, Urine Occult Blood 25 H, Urine Nitrite Negative, Urine Bilirubin Negative, Urine Urobilinogen Normal, Ur Leukocyte Esterase 100 H, Urine RBC 0-5 SEEN, Urine WBC 5-10 SEEN, Ur Squamous Epith Cells 0-5 SEEN, Urine Bacteria 0 SEEN, Urine Mucus 0 SEEN 04/27/22 12:18: Total Bilirubin 0.30, Direct Bilirubin 0.12, AST 18, ALT 33, Alkaline Phosphatase 72, Total Creatine Kinase 59, Total Protein 7.6, Albumin 3.0 L, Globulin 4.6 H, Lipase 106 04/27/22 12:18: Lactic Acid 2.3 H* Micro: Microbiology 04/27/22 12:00 Nasal Secretion SARS-CoV-2 & FLU Antigen (Rapid) - Final Radiology Impression Abdomen/Pelvis CT 04/27/22 11:46 IMPRESSION: 1. Left-sided acute pyelonephritis. 2. Hepatic steatosis. 3. Diverticulosis coli. 4. Pulmonary emphysema. Electronically Signed: Donta Villanueva MD at 13:07 EDT , Chest X-Ray 04/27/22 11:49 IMPRESSION: No acute cardiopulmonary abnormality. COPD. Electronically Signed: Donta Villanueva MD at 13:09 EDT , Assessment & Plan Assessment/Plan (1) Acute pyelonephritis: PLAN: Plan 1. Acute pyelonephritis associated with recent urological procedure-patient was admitted to [facility] 3, she was placed on IV Rocephin and given IV fluids, labs will be monitored, she will be seen in consultation by urology #2 chronic obstructive pulmonary disease-patient is on an inhaler, this will be continued or the equivalent while she is in the hospital #3 hypothyroidism-patient is on Synthroid #4 type 2 diabetes-patient is only taking metformin, her blood sugar was not high in the emergency room, I do not feel at this time that we need to monitor the patient's fingerstick blood sugars, I will place her on an 1800 ADA diet. #5 Hyperlipidemia-patient is on a statin #6 elevated lactic acid-I have made the decision not to repeat the patient's lactic acid, I do not think this will add to her treatment in the hospital at this time. Patient requested a flu and a COVID shot, I have relayed this to nursing hopefully she can get the vaccinations while she is in the hospital. Charges/Coding Visit Charges Inpatient E&M: 00793 Init Hosp L3
[2022-04-27] MEDS: metFORMIN (XR) 500 MG Tablet PO (18:07)
[2022-04-27] MEDS: 0.9% Normal Saline 1,000 ML 125 ML IV (18:08)
[2022-04-27] MEDS: Budesonide Respules 0.5 MG/2 ML AMPUL.NEB. INHALATION (20:21)
[2022-04-27] MEDS: Albuterol 2.5 MG/3 ML VIAL.NEB. INHALATION (20:21)
[2022-04-27] MEDS: Pravastatin 20 MG Tablet PO (21:16)
[2022-04-28] VITALS (8 sets, daily range): BP systolic 106–130; BP diastolic 53–67; PULSE 83–95; RESP 16–18; TEMP 37.1–37.7; O2SAT 93–94
[2022-04-28] MEDS: 0.9% Normal Saline 1,000 ML 125 ML IV ×3 (02:06→17:52)
[2022-04-28] MEDS: Levothyroxine 75 MCG Tablet PO (05:33)
[2022-04-28] MEDS: Budesonide Respules 0.5 MG/2 ML AMPUL.NEB. INHALATION ×2 (06:51→18:37)
[2022-04-28] MEDS: Albuterol 2.5 MG/3 ML VIAL.NEB. INHALATION ×3 (06:51→18:37)
[2022-04-28 07:03] LABS: Absolute Lymphocyte Count 3.21 X10^3/uL (0.83-4.51); Absolute Neutrophil Count 5.8 X10^3/uL (2.0-7.7); Basophil# 0.04 X10^3/uL; Basophil% 0.4 % (0-1); Eosinophil# 0.06 X10^3/uL; Eosinophils% 0.6 % (0-5); Hemoglobin 10.1 g/dL (12.0-15.0); Lymphocyte # 3.21 X10^3/ul (0.83-4.51); Lymphocyte % 30.3 % (19-41); Mean Corp Hgb Conc 32.6 g/dL (32-36); Mean Corpuscular Hgb 31.4 pg (27.0-32.0); Mean Corpuscular Volume 96.3 fL (81-99); Mean Platelet Vol. 9.8 fl (6.2-12.0); Monocyte# 1.43 X10^3/uL; Monocyte% 13.5 % (0-10); NRBC Flagged by Analyzer 0 % (0-5); Neutrophil # 5.81 X10^3/uL (2.7-7.7); Neutrophil % 54.7 % (47-70); Platelet Count 320 K/mm3 (150-450); RBC Distribution Width CV 12.6 % (11.6-14.6); RBC Distribution Width SD 44.4 fl (35.1-43.9); Red Blood Count 3.22 M/mm3 (4.2-5.4); White Blood Count 10.6 K/mm3 (4.4-11.0)
[2022-04-28 07:14] LABS: Anion Gap 8 (5-15); BUN 14 mg/dL (7-18); BUN/Creat Ratio 16.2 RATIO (10-20); Calcium,Total 7.8 mg/dL (8.5-10.1); Chloride 105 mmol/L (98-107); Creatinine, Serum 0.86 mg/dL (0.55-1.02); EST Glomerular Filtration Rate 69 mL/min (>60); Est Glom Filt Rate - Afr Amer 83 mL/min (>60); Estimated Creatinine Clearance 51.06 ml/min; Glucose 86 mg/dL (74-106); Potassium 3.8 mmol/L (3.5-5.1); Sodium Level 136 mmol/L (136-145)
--- NOTE | 2022-04-28 07:25 | PN.HOSP_ITS ---
Subjective Subjective Patient is a 71-year-old lady who presented with fever. She had recently undergone cystoscopy with right ureteroscopy and left ureteral stent insertion. Stent was apparently removed on 04/24/2020. An assessment of suspected acute pyelonephritis made admitted to regular nursing floor started on antibiotics culture sent Objective Data Objective Data Vital Signs: Vital Signs Temp Pulse Resp BP Pulse Ox O2 Del Method 99 F 93 16 106/58 L 94 Room Air 04/28/22 02:29 04/28/22 02:29 04/28/22 02:29 04/28/22 02:29 04/28/22 02:29 04/28/22 02:29 Oxygen Delivery Method Room Air Weight: 56.245 kg Body Mass Index (BMI) 21.2 Intake & Output: Intake and Output for Last 24 Hours 04/26/22 04/27/22 04/28/22 23:59 23:59 23:59 Intake Total 2029 995.83 / 995.83 Balance 2029 995.83 / 995.83 Lab / Micro Data Result Diagrams: 04/28/22 05:25 04/28/22 05:25 Labs: Laboratory Results - last 24 hr 04/27/22 10:22: WBC 13.0 H, RBC 4.16 L, Hgb 13.3, Hct 39.7, MCV 95.4, MCH 32.0, MCHC 33.5, RDW Std Deviation 44.3 H, RDW Coeff of Ginny 12.7, Plt Count 402, MPV 9.6, Immature Gran % (Auto) 0.800, Neut % (Auto) 62.1, Lymph % (Auto) 26.6, [place] % (Auto) 9.9, Eos % (Auto) 0.1, Baso % (Auto) 0.5, Absolute Neuts (auto) 8.1 H, Absolute Lymphs (auto) 3.47, Nucleated RBC % 0 04/27/22 10:22: Sodium 137, Potassium 3.5, Chloride 100, Carbon Dioxide 28.0, Anion Gap 9, BUN 23 H, Creatinine 1.30 H, Estim Creat Clear Calc 33.78, Est GFR (MDRD) Af Amer 52 L, Est GFR (MDRD) Non-Af 43 L, BUN/Creatinine Ratio 17.7, Glucose 129 H, Calcium 9.1 04/27/22 10:22: PT 14.9, INR 1.2 04/27/22 12:15: Urine Color Yellow, Urine Clarity Clear, Urine pH 5.0, Ur Specif ic [place] 1.020, Urine Protein 100 H, Urine Glucose (UA) Normal, Urine Ketones 15 H, Urine Occult Blood 25 H, Urine Nitrite Negative, Urine Bilirubin Negative, Urine Urobilinogen Normal, Ur Leukocyte Esterase 100 H, Urine RBC 0-5 SEEN, Urine WBC 5-10 SEEN, Ur Squamous Epith Cells 0-5 SEEN, Urine Bacteria 0 SEEN, Urine Mucus 0 SEEN 04/27/22 12:18: Total Bilirubin 0.30, Direct Bilirubin 0.12, AST 18, ALT 33, Alkaline Phosphatase 72, Total Creatine Kinase 59, Total Protein 7.6, Albumin 3.0 L, Globulin 4.6 H, Lipase 106 04/27/22 12:18: Lactic Acid 2.3 H* 04/28/22 05:25: WBC 10.6, RBC 3.22 L, Hgb 10.1 L, Hct 31.0 L, MCV 96.3, MCH 31.4, MCHC 32.6, RDW Std Deviation 44.4 H, RDW Coeff of Ginny 12.6, Plt Count 320, MPV 9.8, Immature Gran % (Auto) 0.500, Neut % (Auto) 54.7, Lymph % (Auto) 30.3, [place] % (Auto) 13.5 H, Eos % (Auto) 0.6, Baso % (Auto) 0.4, Absolute Neuts (auto) 5.8, Absolute Lymphs (auto) 3.21, Nucleated RBC % 0 04/28/22 05:25: Sodium 136, Potassium 3.8, Chloride 105, Carbon Dioxide 23.0, Anion Gap 8, BUN 14, Creatinine 0.86, Estim Creat Clear Calc 51.06, Est GFR (MDRD) Af Amer 83, Est GFR (MDRD) Non-Af 69, BUN/Creatinine Ratio 16.2, Glucose 86, Calcium 7.8 L Micro: Microbiology 04/27/22 12:00 Nasal Secretion SARS-CoV-2 & FLU Antigen (Rapid) - Final Radiography Diagnostic Testing: Radiology Impression Abdomen/Pelvis CT 04/27/22 11:46 IMPRESSION: 1. Left-sided acute pyelonephritis. 2. Hepatic steatosis. 3. Diverticulosis coli. 4. Pulmonary emphysema. Electronically Signed: Donta Villanueva MD at 13:07 EDT Reading Location ID and State: [id number] / [place] Tel , Service support , Chest X-Ray 04/27/22 11:49 IMPRESSION: No acute cardiopulmonary abnormality. COPD. Electronically Signed: Donta Villanueva MD at 13:09 EDT , Rhythm Strip Rhythm Strip: Sinus Rhythm Rate: 79 Ectopy: None Physical Exam Narrative GENERAL: cooperative HEENT: Atraumatic; normocephalic EYES; Anicteric, Normal Conjunctiva NECK; supple, normal thyroid, RESPIRATORY: Diminished to auscultation CARDIOVASCULAR: Regular S1 S2, GI: soft, normoactive bowel sounds, : No Renal angle tenderness; EXTREMITIES: No edema, no clubbing, MUSCULOSKELETAL: no muscle wasting NEURO: Awake; no lateralizing signs. SKIN: No Rash PSYCH; Flat affect Assessment & Plan Assessment/Plan (1) Acute pyelonephritis: PLAN: Plan Patient is a 71-year-old lady who presented with fever. She had recently undergone cystoscopy with right ureteroscopy and left ureteral stent insertion. Stent was apparently removed on 04/24/2020. An assessment of suspected acute pyelonephritis made admitted to regular nursing floor started on antibiotics culture sent 1. Acute pyelonephritis -associated with recent urological procedure, admitted to regular nursing floor started on Rocephin cultures sent consult placed to urology 2. Lactic acidosis ? Patient does not have any evidence of sepsis this is possibly related to her metformin which is currently being held 3. COPD ? Not in exacerbation aerosol treatment as needed 4. Hypothyroidism - Patient is on levothyroxine home dose continued 5. Dyslipidemia -Patient is on statin therapy, continued at home dose 6. Diabetes mellitus type II -patient's oral hypoglycemics held. Placed on Accu-Cheks a.c. and at bedtime and covered with sliding scale insulin 7. DVT prophylaxis ? Enoxaparin. Charges/Coding Visit Charges Inpatient E&M: 78571 Subs Hosp L2
[2022-04-28] MEDS: metFORMIN (XR) 500 MG Tablet PO (07:58)
[2022-04-28] MEDS: FLU VACC QS2022-23(65YR UP)/PF 240 MCG/0.7 ML SYRINGE IM (10:14)
[2022-04-28] MEDS: Enoxaparin 40 MG/0.4 ML Syringe SC (10:15)
[2022-04-28] MEDS: Ceftriaxone 1 GM/50 ML BAG IV (10:56)
--- NOTE | 2022-04-28 11:05 | CASEMGMT ---
RAMU SEALS Assessment: Face to Face with pt for initial transition planning/care coordination assessment. RAMU SEALS introduced self and role at [facility], pt voices understanding and consents to assessment. Pt is A/O x4 and answers all questions appropriately at this time. Pt in bed. Appears to be in no distress. Care providers, pharmacy, and demographics verified/updated. Admitting Dx: Pyelonephritis. PCP: Jonathan. Specialists: Pt was seeing Dung. Pt denied any other specialists. Preferred [facility]acy: [facility]. Insurance: [employer] Medicare. Prescription Benefit: yes. LW/HPOA: Pt denies having a LW/DPOA. LNOK: Bowen Bill, son. Living Arrangements: Pt lives alone in a one story home with two steps to get into the home with a railing. Pt reports being I in ADLs. Pt reports being very independent. Pt mows, gardens, and cleans. Transportation: Pt drives self. Pt's friend can assist if needed. DME/HHC/SNF: Pt denied any DME. Pt denied any current or past HHC including therapy. Pt denied any SNF stays. Pt checks her blood sugar three or four times a day. Pt reports having necessary supplies. Pt states no concerns with going home at time of dc. Pt states no further concerns/needs. CM to follow. Advised pt to ask CM if any further question/concerns/needs arise, voices understanding. Pt Goal: Home. Plan: Home.
--- NOTE | 2022-04-28 17:53 | PCM.PROGNOTE ---
Subjective Subjective Patient is awake, sitting in bed and is feeling better this afternoon.No nausea or vomiting. No acute events overnight. Objective Data Objective Data Vital Signs: Vital Signs Temp Pulse Resp BP Pulse Ox O2 Del Method 99.5 F H 83 16 107/53 L 93 Room Air 04/28/22 15:18 04/28/22 15:18 04/28/22 15:18 04/28/22 15:18 04/28/22 15:18 04/28/22 15:26 Oxygen Delivery Method Room Air Weight: 56.245 kg Body Mass Index (BMI) 21.2 Intake & Output: Intake and Output for Last 24 Hours 04/26/22 04/27/22 04/28/22 23:59 23:59 23:59 Intake Total 2029 3000.00 / 3000.00 Balance 2029 3000.00 / 3000.00 Lab / Micro Data Result Diagrams: 04/28/22 05:25 04/28/22 05:25 Labs: Laboratory Results - last 24 hr 04/28/22 05:25: WBC 10.6, RBC 3.22 L, Hgb 10.1 L, Hct 31.0 L, MCV 96.3, MCH 31.4, MCHC 32.6, RDW Std Deviation 44.4 H, RDW Coeff of Ginny 12.6, Plt Count 320, MPV 9.8, Immature Gran % (Auto) 0.500, Neut % (Auto) 54.7, Lymph % (Auto) 30.3, Dewey % (Auto) 13.5 H, Eos % (Auto) 0.6, Baso % (Auto) 0.4, Absolute Neuts (auto) 5.8, Absolute Lymphs (auto) 3.21, Nucleated RBC % 0 04/28/22 05:25: Sodium 136, Potassium 3.8, Chloride 105, Carbon Dioxide 23.0, Anion Gap 8, BUN 14, Creatinine 0.86, Estim Creat Clear Calc 51.06, Est GFR (MDRD) Af Amer 83, Est GFR (MDRD) Non-Af 69, BUN/Creatinine Ratio 16.2, Glucose 86, Calcium 7.8 L Micro: Microbiology 04/27/22 12:15 Urine, Clean Catch Urine Culture - Preliminary GPC Poss Enterococcus sp 04/27/22 12:18 Blood Culture (Wb) - Anticubital Left Blood Culture - Preliminary No growth in 48 hours. 04/27/22 10:22 Blood Culture (Wb) - Anticubital Left Blood Culture - Preliminary No growth in 48 hours. 04/27/22 12:00 Nasal Secretion SARS-CoV-2 & FLU Antigen (Rapid) - Final Rhythm Strip Rhythm Strip: Sinus Rhythm Rate: 79 Ectopy: None Physical Exam Const alert, oriented x3 and no apparent distress HEENT normocephalic and head/scalp atraumatic Eyes conjunctivae normal General Eye: normal appearance of both eyes Neck supple Lymph Lymphatic: no lymphedema noted Chest inspection of chest normal Resp normal respiratory effort, normal air movement and no retractions Effort and Inspection: able to speak in complete sentences Cardio regular rate and regular rhythm Cardio Narrative: Tachycardia has resolved GI soft to palpation, non-tender and non-distended no CVA tenderness Back/Spine no CVA tenderness Assessment & Plan Assessment/Plan (1) Acute pyelonephritis: PLAN: Plan Await urine culture results Resolution of abnormal labs today Okay for discharge tomorrow from standpoint already with follow up appt scheduled
[2022-04-28] MEDS: Acetaminophen 325 MG Tablet 650 MG PO (20:32)
[2022-04-28] MEDS: Pravastatin 20 MG Tablet PO (20:33)
--- NOTE | 2022-04-28 23:06 | NURSING ---
Late entry - 220 pt refused accucheck
[2022-04-29] MEDS: 0.9% Normal Saline 1,000 ML 125 ML IV (01:50)
[2022-04-29 02:14] VITALS: BP 118/83; PULSE 62; RESP 18; TEMP 36.6; O2SAT 95
[2022-04-29 04:36] VITALS: BP 118/83; PULSE 62; RESP 18; TEMP 36.6; O2SAT 95
[2022-04-29] MEDS: Levothyroxine 75 MCG Tablet PO (06:18)
[2022-04-29 06:55] VITALS: O2SAT 95
--- NOTE | 2022-04-29 07:29 | PCM.PN.HOSP ---
Subjective Subjective Patient seen had a relatively eventful night.Urine cultures positive for GPC possible Enterococcus colony count not significant. Patient be assessed for possible discharge Objective Data Objective Data Vital Signs: Vital Signs Temp Pulse Resp BP Pulse Ox O2 Del Method 97.8 F 62 18 118/83 H 95 Room Air 04/29/22 04:36 04/29/22 04:36 04/29/22 04:36 04/29/22 04:36 04/29/22 06:55 04/29/22 06:55 Oxygen Delivery Method Room Air Weight: 56.245 kg Body Mass Index (BMI) 21.2 Intake & Output: Intake and Output for Last 24 Hours 04/27/22 04/28/22 04/29/22 23:59 23:59 23:59 Intake Total 2029 3000.00 / 3600.00 1795.83 / 1795.83 Balance 2029 3000.00 / 3600.00 1795.83 / 1795.83 Lab / Micro Data Result Diagrams: 04/28/22 05:25 04/28/22 05:25 Micro: Microbiology 04/27/22 12:15 Urine, Clean Catch Urine Culture - Preliminary GPC Poss Enterococcus sp 04/27/22 12:18 Blood Culture (Wb) - Anticubital Left Blood Culture - Preliminary No growth in 48 hours. 04/27/22 10:22 Blood Culture (Wb) - Anticubital Left Blood Culture - Preliminary No growth in 48 hours. 04/27/22 12:00 Nasal Secretion SARS-CoV-2 & FLU Antigen (Rapid) - Final Rhythm Strip Rhythm Strip: Sinus Rhythm Rate: 79 Ectopy: None Physical Exam Narrative GENERAL: cooperative HEENT: Atraumatic; normocephalic EYES; Anicteric, Normal Conjunctiva NECK; supple, normal thyroid, RESPIRATORY: Diminished to auscultation CARDIOVASCULAR: Regular S1 S2, GI: soft, normoactive bowel sounds, : No Renal angle tenderness; EXTREMITIES: No edema, no clubbing, MUSCULOSKELETAL: no muscle wasting NEURO: Awake; no lateralizing signs. SKIN: No Rash PSYCH; Flat affect Assessment & Plan Assessment/Plan (1) Acute pyelonephritis: PLAN: Plan Patient is a 71-year-old lady who presented with fever. She had recently undergone cystoscopy with right ureteroscopy and left ureteral stent insertion. Stent was apparently removed on 04/24/2020. An assessment of suspected acute pyelonephritis made admitted to regular nursing floor started on antibiotics culture sent 1. Acute pyelonephritis -associated with recent urological procedure, admitted to regular nursing floor started on Rocephin cultures sent consult placed to urology -04/29/2022; Patient seen had a relatively eventful night.Urine cultures positive for GPC possible Enterococcus colony count not significant 2. Lactic acidosis ? Patient does not have any evidence of sepsis this is possibly related to her metformin which is currently being held 3. COPD ? Not in exacerbation aerosol treatment as needed 4. Hypothyroidism - Patient is on levothyroxine home dose continued 5. Dyslipidemia -Patient is on statin therapy, continued at home dose 6. Diabetes mellitus type II -patient's oral hypoglycemics held. Placed on Accu-Cheks a.c. and at bedtime and covered with sliding scale insulin 7. DVT prophylaxis ? Enoxaparin. Charges/Coding Visit Charges Inpatient E&M: 03859 Subs Hosp L2
[2022-04-29 09:39] VITALS: BP 128/53; PULSE 81; RESP 16; TEMP 36.8; O2SAT 93
--- NOTE | 2022-04-29 09:44 | PCM.DC.SUM ---
Providers Date of Admission: 04/27/22 Date of Discharge: 04/29/22 Primary Care Physician: Dr. Harjinder Castillo, DO Consultations 04/27/22 15:29 Consult: Urology Routine Consulting Provider: Antonieta Razo Reason for Consult: patient known to you EMERGENT Consult: No MD Notified: Yes Date Notified: 04/27/22 Time Notified: 15:23 Method of Notification: Verbal Reason For Visit: PYELONEPHRITIS Diagnosis Discharge Diagnosis (1) Acute pyelonephritis: Status: Acute Code(s): N10 - Acute pyelonephritis Plan Patient is a 71-year-old lady who presented with fever. She had recently undergone cystoscopy with right ureteroscopy and left ureteral stent insertion. Stent was apparently removed on 04/24/2020. An assessment of suspected acute pyelonephritis made admitted to regular nursing floor started on antibiotics culture sent 1. Acute pyelonephritis -associated with recent urological procedure, admitted to regular nursing floor started on Rocephin cultures sent consult placed to urology -04/29/2022; Patient seen had a relatively eventful night.Urine cultures positive for GPC possible Enterococcus colony count not significant 2. Lactic acidosis ? Patient does not have any evidence of sepsis this is possibly related to her metformin which is currently being held 3. COPD ? Not in exacerbation aerosol treatment as needed 4. Hypothyroidism - Patient is on levothyroxine home dose continued 5. Dyslipidemia -Patient is on statin therapy, continued at home dose 6. Diabetes mellitus type II -patient's oral hypoglycemics held. Placed on Accu-Cheks a.c. and at bedtime and covered with sliding scale insulin 7. DVT prophylaxis ? Enoxaparin. Medications at Discharge Home Medications pravastatin 20 mg tablet 20 mg PO DAILY #90 tabs 11/19/21 levothyroxine 75 mcg tablet 75 mcg PO DAILY #90 tabs 12/05/21 levocetirizine 5 mg tablet 5 mg PO DAILY PRN allergies #30 tabs 03/07/22 budesonide-formoterol HFA 160 mcg-4.5 mcg/actuation aerosol inhaler (Symbicort) 2 puff inhalation BID #10.2 grams 03/12/22 metformin 750 mg tablet,extended release 24 hr 500 mg PO BID Check with primary doctor 03/20/22 hnoyhfuv-rsdvdsz-lfvu-lutein tablet 1 tab PO DAILY Check with primary doctor 03/20/22 oxycodone-acetaminophen 5 mg-325 mg tablet (Percocet) 1 tab PO Q8H PRN pain 3 days #14 tabs 04/03/22 acetaminophen 300 mg-codeine 30 mg tablet 1 - 2 tab PO Q6H PRN PRN Pain Score 6-10/10 3 days #10 TABLETS 04/24/22 levofloxacin 500 mg tablet 500 mg PO DAILY #7 tabs 04/29/22 Hospital Course Summary of Care Provided Minutes Spent on Discharge: 35 Physical Exam Narrative GENERAL: cooperative HEENT: Atraumatic; normocephalic EYES; Anicteric, Normal Conjunctiva NECK; supple, normal thyroid, RESPIRATORY: Diminished to auscultation CARDIOVASCULAR: Regular S1 S2, GI: soft, normoactive bowel sounds, : No Renal angle tenderness; EXTREMITIES: No edema, no clubbing, MUSCULOSKELETAL: no muscle wasting NEURO: Awake; no lateralizing signs. SKIN: No Rash PSYCH; Flat affect Weight / BMI Weight Weight: 56.245 kg Body Mass Index (BMI) 21.2 ABG / Lab / Microbiology Data Result Diagrams: 04/28/22 05:25 04/28/22 05:25 Microbiology: Microbiology 04/27/22 12:15 Urine, Clean Catch Urine Culture - Final GPC Poss Enterococcus sp 04/27/22 12:18 Blood Culture (Wb) - Anticubital Left Blood Culture - Preliminary No growth in 48 hours. 04/27/22 10:22 Blood Culture (Wb) - Anticubital Left Blood Culture - Preliminary No growth in 48 hours. 04/27/22 12:00 Nasal Secretion SARS-CoV-2 & FLU Antigen (Rapid) - Final D/C Instructions Discharge Diet: 1800 Calorie Control Diet Discharge Activity: Return to Normal Activity Call your doctor if you observe: Fever of 101 or Higher, Shortness of breath, Fainting spells and Chest pain Meaningful Use Info Meaningful Use Diagnoses (Choose all that apply): None applicable Discharge Plan Admission Admit Date/Time: 04/27/22 14:36 Attending Provider: Reilly Thompson Primary Care Provider: Harjinder Castillo Consulting Providers: Antonieta Razo ; James Samuel Discharge Orders/Prescriptions Prescriptions: New levofloxacin 500 mg tablet 500 mg PO DAILY Qty: 7 0RF Continued levothyroxine 75 mcg tablet 75 mcg PO DAILY Qty: 90 1RF zolrreqe-mpnbtoj-hbko-lutein Tablet 1 tab PO DAILY metformin 750 mg tablet extended release 24 hr 500 mg PO BID oxycodone-acetaminophen [Percocet] 5-325 mg tablet 1 tab PO Q8H PRN (Reason: pain) 3 Days Qty: 14 0RF acetaminophen-codeine 300-30 mg tablet 1 - 2 tab PO Q6H PRN PRN (Reason: Pain Score 6-10/10) 3 Days Qty: 10 0RF pravastatin 20 mg tablet 20 mg PO DAILY Qty: 90 3RF levocetirizine 5 mg tablet 5 mg PO DAILY PRN (Reason: allergies) Qty: 30 3RF budesonide-formoterol [Symbicort] 160-4.5 mcg/actuation HFA aerosol inhaler 2 puff inhalation BID Qty: 10.2 4RF Referrals / Follow Up: Harjinder Castillo DO [Primary Care Provider] - Within 1 Week Antonieta Razo MD [Med Staff - Active Staff] - Within 1 Week Disposition Disposition (needs filled in before D/C Order can be placed): Home, Self Care Charges/Coding Visit Charges Inpatient E&M: 69380 Disch Hosp
[2022-04-29] MEDS: Enoxaparin 40 MG/0.4 ML Syringe SC (09:59)
[2022-04-29] MEDS: Ceftriaxone 1 GM/50 ML BAG IV (10:02)
== END 2022-04-29 12:20 | disposition home or self-care (01) | DRG 863 ==
LOC: ED 11:48 → MS3 15:30
PROVIDERS: Admitting Provider Internal Medicine; Emergency Provider Emergency Medicine; PCP Family Medicine; Visit Provider Internal Medicine
DX: T81.40XA Infection following a procedure, unspecified, initial encounter (principal); N10 Acute pyelonephritis; E03.9 Hypothyroidism, unspecified; E11.9 Type 2 diabetes mellitus without complications; E78.00 Pure hypercholesterolemia, unspecified; J43.9 Emphysema, unspecified; I10 Essential (primary) hypertension; Y83.8 Other surgical procedures as the cause of abnormal reaction of the patient, or of later complication, without mention of misadventure at the time of the procedure; Z23 Encounter for immunization; Z78.0 Asymptomatic menopausal state; Z20.822 Contact with and (suspected) exposure to COVID-19; Z79.84 Long term (current) use of oral hypoglycemic drugs; Z79.890 Hormone replacement therapy; Z79.899 Other long term (current) drug therapy; Z87.891 Personal history of nicotine dependence
CPT/HCPCS: 0124A; 36415; 71046; 74177; 76000; 80048; 80076; 81001; 82550; 82962; 83605; 83690; 85025; 85610; 87040; 87086; 87088; 87428; 91312; 93005; 94640; 99285; J7030; J7040; J7120; Q9967; 90662; A4216; J2405

== ENCOUNTER → 2022-05-06 | Outpatient (CLI) | payer MEDICARE, SELFPAY ==
[2022-05-06 10:53] LABS: Bacteria 0 SEEN /hpf (None Seen); Mucous, Urine 0 SEEN /hpf (<or=2+); White Blood Cells 0 SEEN /hpf (0-5)
[2022-05-06 12:53] LABS: Color, Urine Yellow (Yellow); Glucose, Dipstick Normal (Normal); Ketone-Dipstick Negative (Negative); Leukocyte Esterase-Dipstick Negative /ul (Negative); Nitrite-Dipstick Negative (Negative); Occult Blood-Urine 10 /ul (Negative); Protein-Dipstick 15 mg/dl (Negative); Specific Gravity, Urine 1.015 (1.002-1.030); Urine Bilirubin Dipstick Negative (Negative); Urine Clarity Sl. Cloudy (Clear); Urine Urobilinogen Normal (Normal)
[2022-05-06 13:05] LABS: Red Blood Cells-Urine 0-5 SEEN /hpf (0-5); Squamous Epithelial Cells - UA 0-5 SEEN /hpf (5-10)
== END | disposition home or self-care (01) ==
LOC: LABSPEC 10:51
PROVIDERS: PCP Family Medicine; Visit Provider Physician Assistant
DX: N12 Tubulo-interstitial nephritis, not specified as acute or chronic (principal)
CPT/HCPCS: 81001; 87086

== ENCOUNTER → 2022-07-07 | Outpatient (CLI) | payer MEDICARE, SELFPAY ==
[2022-07-07 15:17] LABS: Absolute Lymphocyte Count 3.96 X10^3/uL (0.83-4.51); Absolute Neutrophil Count 5.3 X10^3/uL (2.0-7.7); Basophil# 0.04 X10^3/uL; Basophil% 0.4 % (0-1); Hematocrit 39.7 % (37-47); Lymphocyte # 3.96 X10^3/ul (0.83-4.51); Lymphocyte % 38.6 % (19-41); Mean Corp Hgb Conc 32.7 g/dL (32-36); Mean Corpuscular Hgb 31.8 pg (27.0-32.0); Mean Corpuscular Volume 97.1 fL (81-99); Mean Platelet Vol. 9.8 fl (6.2-12.0); Monocyte% 7.8 % (0-10); NRBC Flagged by Analyzer 0 % (0-5); Neutrophil # 5.31 X10^3/uL (2.7-7.7); Neutrophil % 51.8 % (47-70); Platelet Count 405 K/mm3 (150-450); RBC Distribution Width SD 49.7 fl (35.1-43.9); Red Blood Count 4.09 M/mm3 (4.2-5.4); White Blood Count 10.3 K/mm3 (4.4-11.0)
== END | disposition home or self-care (01) ==
PROVIDERS: PCP Family Medicine; Referring Provider Family Medicine; Visit Provider Family Medicine
DX: D64.9 Anemia, unspecified (principal)
CPT/HCPCS: 36415; 85025

== ENCOUNTER → 2022-07-16 | Outpatient (CLI) | payer MEDICARE, SELFPAY ==
[2022-07-16 16:20] LABS: Thyroid Stim Hormone (TSH) 0.67 uIU/mL (0.358-3.74)
== END | disposition home or self-care (01) ==
LOC: BIMLAB 14:38
PROVIDERS: PCP Family Medicine; Referring Provider Family Medicine; Visit Provider Family Medicine
DX: E03.9 Hypothyroidism, unspecified (principal)
CPT/HCPCS: 36415; 84443

== ENCOUNTER 2022-07-27 12:13 | Emergency (ER) | payer MEDICARE, SELFPAY ==
[2022-07-27] VITALS (13 sets, daily range): BP systolic 62–85; BP diastolic 40–69; PULSE 28–105; RESP 12–25; TEMP 33.1–35; O2SAT 77–100; BMI 22.4
--- NOTE | 2022-07-27 12:26 | EKG12_ITS ---
Test Reason : WEAKNESS Blood Pressure : / mmHG Vent. Rate : 078 BPM Atrial Rate : 078 BPM P-R Int : 204 ms QRS Dur : 134 ms QT Int : 492 ms P-R-T Axes : 082 010 076 degrees QTc Int : 560 ms Normal sinus rhythm Non-specific intra-ventricular conduction block Minimal voltage criteria for LVH, may be normal variant ( [place] product ) Abnormal ECG Confirmed by SAMARIA ARROYO, SEYMOUR ([id number]), video effects editor JUSTIN NIÑO ([id number]) on 07/28/2022 10:08:32 AM Referred By: YOLANDA Confirmed By:SEYMOUR MERA MD
[2022-07-27] MEDS: 0.9% Normal Saline 1,000 ML 2000 ML IV (12:32)
--- NOTE | 2022-07-27 12:32 | EDS_ITS ---
HPI HPI - GI History of Present Illness Chief Complaint: Weakness Informant: patient and family Abdominal Pain/Flank Pain Onset: Today Timing: Continuous Current Severity: Moderate Maximum Severity: Moderate Worsened by: Nothing Relieved by: Nothing Nausea/Vomiting/Emesis GI Symptom: Positive for Nausea and Vomiting Onset: Today and Yesterday Severity: Moderate Diarrhea/Melena/Hematochezia GI Symptom: Positive for Diarrhea; Negative for Melena or Hematochezia Onset: Today Stool Quality: Positive for Watery Severity: Moderate Associated Symptoms Associated Symptoms: Negative for Dysuria, Frequency or Hematuria Narrative Narrative: 71-year-old female history of diabetes, hypertension and COPD. Son found her in bed today decreased responsiveness. In the last 24 to 48 hours she has had nausea, vomiting and diarrhea. Decreased oral intake. Denies any headache, chest pain or abdominal pain. Denies any fever. Prior similar symptoms: No Recent Illness/Hospitalization: No PFSH PFSH Medical History Acute maxillary sinusitis Acute pyelonephritis Arthritis Asthma Back problem Chronic obstructive lung disease Diabetes Encounter for screening for malignant neoplasm of lung in current smoker with 30 pack year history or greater Former smoker Goiter Hepatomegaly High cholesterol History of tobacco use Hyperlipidemia Hypertension Hypothyroid Normal stress echocardiogram Post-menopausal Shingles Smoking greater than 40 pack years Thyroid disease Type 2 diabetes mellitus Wears dentures Wears glasses Wears partial dentures Home Medications pravastatin 20 mg tablet 20 mg PO DAILY #90 tabs 11/19/21 [Rx Last Taken 04/26/22 22:00] budesonide-formoterol HFA 160 mcg-4.5 mcg/actuation aerosol inhaler (Symbicort) 2 puff inhalation BID #10.2 grams 03/12/22 [Rx Last Taken 04/27/22 08:00] metformin 750 mg tablet,extended release 24 hr 500 mg PO BID Check with primary doctor 03/20/22 [History Last Taken 04/27/22 08:00] ghlwlxzo-viyoloe-melq-lutein tablet 1 tab PO DAILY Check with primary doctor 03/20/22 [History Last Taken 04/27/22 08:00] acetaminophen 300 mg-codeine 30 mg tablet 1 - 2 tab PO Q6H PRN PRN Pain Score 6- 10/10 3 days #10 TABLETS 04/24/22 [Rx Last Taken Unknown] levocetirizine 5 mg tablet 5 mg PO DAILY PRN allergies #30 tabs 07/01/22 [Rx Last Taken Unknown] levothyroxine 75 mcg tablet 75 mcg PO DAILY #90 tabs 07/16/22 [Rx Last Taken Unknown] Allergy/AdvReac Type Severity Reaction Status Date / Time amlodipine Allergy Unknown muscle pain Verified 07/16/22 14:08 Sulfa (Sulfonamide Allergy Rash Verified 07/16/22 14:08 Antibiotics) Family History Sister Thyroid disorder Thyroid cancer Heart disease Diabetes Mother Colon cancer Ovarian cancer Diabetes Father Stomach cancer Colon cancer Brother Heart disease Grandfather Colon cancer Surgical History History of cholecystectomy History of colonoscopy Hx of cystoscopy Social History Smoking Status: Current every day smoker tobacco type: cigarettes Tobacco: How many years used: 55 how long ago did patient quit smokin years second hand exposure: Yes quit status: quit date established alcohol intake: never substance use type: does not use caffeine: No what type of physical activity do you participate in: none ROS ROS ED ROS Narrative Nausea, vomiting and diarrhea. Review of Systems ROS Unobtainable: Denies due to encephalopathy Constitutional Constitutional ED: Denies chills or fever(s) ENT ENT ED: Denies ear pain or rhinorrhea Cardiovascular Cardiovascular: Denies chest pain Respiratory/Chest Respiratory/Chest: Denies cough or dyspnea Gastrointestinal Gastrointestinal: Reports diarrhea, nausea and vomiting; Denies abdominal pain, constipation or melena Genitourinary Genitourinary ED: Denies dysuria or hematuria Musculoskeletal Musculoskeletal: Denies arthralgias Integumentary Denies abscess Neurologic Neurologic: Denies headache(s) Psychiatric Psychiatric: Denies anxiety Endocrine Endocrinology: Denies polydipsia Hematologic/Lymphatic Hematologic/Lymphatic: Denies easy bleeding Allergic/Immunologic Allergic/Immunologic ED: Denies mouth swelling or tongue swelling EXAM Physical Exam Narrative Exam Narrative: 69-year-old female clinically looks ill, dehydrated and is hypotensive with a blood pressure of 67/55. H EENT exam dry mucous membranes. No trauma. Pupils round reactive light. Neck nontender no lymphadenopathy. Lungs clear to auscultation bilaterally. Heart regular rhythm rate about 80 no murmur. Chest wall nontender. Abdomen soft nontender. Back nontender. Moving all 4 extremities. Neurologically she is is a decreased mental status. I suspect that is from being dehydrated. She does move all 4 extremities. She is a limited informant. Const Vital Signs: 07/27/22 12:14 07/27/22 12:30 07/27/22 12:59 Temperature 95 F L Temperature Source Temporal Pulse Rate 80 Respiratory Rate 20 H Respiratory Effort Respiratory Pattern Blood Pressure 67/55 L Blood Pressure Mean 59 Pulse Ox 98 98 Oxygen Delivery Method Room Air Room Air Room Air 07/27/22 12:59 07/27/22 13:01 07/27/22 13:25 Temperature 91.5 F L Temperature Source Core Pulse Rate 80 105 H Respiratory Rate 25 H 24 H Respiratory Effort Normal Non-Labored Respiratory Pattern Normal Blood Pressure 62/42 L 69/49 L Blood Pressure Mean 48 55 Pulse Ox 98 95 Oxygen Delivery Method Room Air Room Air Positive well nourished and well developed; Negative for obese, cachectic, contractures or unkempt General Appearance ED: well developed and pallor; Negative for unkempt, cachectic, contractures or NAD Nutritional Appearance: Negative for cachectic or obese HEENT Reports dry mucous membranes; Denies moist mucous membranes normocephalic and atraumatic; Negative for trauma or tenderness Mouth ED: Yes dry mucous membranes Mouth: dry mucous membranes Eyes PERRL and EOMs intact bilaterally General Eye ED: Negative for pale conjunctiva or scleral icterus Neck no lymphadenopathy, supple and no JVD General: Negative for tenderness Carotids: Negative for other Lymph Lymphatic: Negative for other Resp normal respiratory effort and clear to auscultation bilaterally Effort and Inspection: Negative for respiratory distress Auscultation: Negative for rales, rhonchi or wheezes Cardio regular rate, regular rhythm, S1 normal heart sound, S2 normal heart sound and no murmurs Rate: Negative for bradycardia or tachycardic Rhythm: Negative for abnormal rhythm GI non-tender, non-distended and no masses Inspection: Negative for abdominal distention Auscultation: normoactive bowel sounds Palpation: soft; Negative for tender, guarding, rigid, hernia, mass, pulsatile mass or rebound tenderness present Back/Spine no CVA tenderness General Back: Negative for CVA tenderness Cervical Spine: Negative for cervical spine tenderness Thoracic Spine / Upper Back: Negative for thoracic spinal tenderness Lumbar Spine / Lower Back: Negative for lumbar spinal tenderness Coccyx: Negative for other Extremity General Extremety ED: Negative for edema or tenderness General Extremity: Negative for edema Neuro moves all extremities Sensorium / Orientation: oriented to person, orientation impaired, confused and lethargic; Negative for oriented to time or stuporous Motor Exam: general weakness; Negative for strength 5/5 throughout Psych mental status grossly normal and thought process normal Appearance: Negative for unkempt Attitude: No agitated Mood & Affect: Negative for depressed, anxious or tearful Skin no wounds General Skin Exam: pallor; Negative for jaundice Lesions: no lesions Rashes: no rashes Trauma: Negative for abrasion Nails: Negative for discolored MDM MDM MDM Narrative Medical decision making narrative: 71-year-old female with nausea vomiting diarrhea. Clinically looks dehydrated. Clinically has hypovolemic shock. Blood pressure 67/55. She will be treated with IV fluids x2 L. Undergo a sepsis protocol work-up. And will need to be admitted. Repeat exam at 1:45 PM. Patient's almost through 2 L normal saline has not had any significant improvement yet of her hypotension. Multiple repeat exams at 3:00 the patient has had now 4 L of normal saline. Her pressure is still in the 60s and low 70s systolic. I discussed with the son possible intubation and central line. The patient initial presentation wanted full measures but then told her son she is so sick that she would want to be let go. He and I had a long discussion along with nursing staff that she is in multisystem organ failure, hypotensive, renal failure etc. that we could put her on a ventilator and place a central line but most likely given her lactic acid of 13.6 this is a terminal event. He did not want a put her through all that. He does not want CPR and he does not want her on a ventilator. Patient will be made DNR comfort care. I spoken to the hospitalist the patient will be admitted to medical floor. Patient was treated previously for hyperkalemia with aerosols, glucose, insulin and calcium gluconate. There is been no significant change in her rhythm strip. Lab Data Attestation: I reviewed the patient's lab results. Lab results narrative: CBC shows a white count 17.9. H&H of 10.4 and 36. Platelets 318. 6% bands. PT/INR 17 and 1.5. PTT 31.6. Sodium 138. Calcium is 7.5 patient's anion gap is 36 BUN is 105 creatinine is 10.5 consistent with acute renal failure. Acute kidney injury. Liver enzymes are unremarkable. Troponin is elevated at 2689. Lactic acid is 13.6. Consistent with septic shock. Or severe dehydration and hypovolemic shock. Chest x-ray is unremarkable. Lipase normal at 236. Respiratory was unable to obtain a blood gas. Urinalysis is negative. No nitrites. No white or red cells. Labs: Laboratory Results - last 24 hr 07/27/22 07/27/22 07/27/22 12:34 12:34 12:34 WBC 17.9 H RBC 3.35 L Hgb 10.4 L Hct 36.0 L MCV 107.5 H MCH 31.0 MCHC 28.9 L RDW Std Deviation 56.5 H RDW Coeff of Ginny 14.3 Plt Count 318 MPV 10.2 Neut % (Auto) Not Reportable Absolute Neuts (auto) 14.3 H Absolute Lymphs (auto) 2.86 Total Counted 100 Neutrophils % (Manual) 72 H Band Neutrophils % 6 H Lymphocytes % (Manual) 16 L Monocytes % (Manual) 4 Metamyelocytes % 2 H Diff Path Review May foll Reactive Lymphocytes RARE Platelet Estimate ADEQUATE RBC Morphology N CHROM Anisocytosis 2+ PT 17.9 H INR 1.5 APTT 31.6 Sodium 138 Potassium 7.5 H* Chloride 99 Carbon Dioxide 3.0 L* Anion Gap 36 H BUN 105 H* Creatinine 10.50 H* Estim Creat Clear Calc 4.18 Est GFR (MDRD) Af Amer 5 L Est GFR (MDRD) Non-Af 4 L BUN/Creatinine Ratio 10.0 Glucose 96 Lactic Acid Calcium 9.3 Total Bilirubin 0.30 AST 58 H ALT 47 Alkaline Phosphatase 77 Troponin I High Sens 2689 H* Total Protein 7.3 Albumin 3.4 Globulin 3.9 Albumin/Globulin Ratio 0.9 Lipase Urine Color Urine Clarity Urine pH Ur Specific [place] Urine Protein Urine Glucose (UA) Urine Ketones Urine Occult Blood Urine Nitrite Urine Bilirubin Urine Urobilinogen Ur Leukocyte Esterase Urine RBC Urine WBC Ur Squamous Epith Cells Urine Bacteria Urine Mucus 07/27/22 07/27/22 07/27/22 12:34 12:55 13:50 WBC RBC Hgb Hct MCV MCH MCHC RDW Std Deviation RDW Coeff of Ginny Plt Count MPV Neut % (Auto) Absolute Neuts (auto) Absolute Lymphs (auto) Total Counted Neutrophils % (Manual) Band Neutrophils % Lymphocytes % (Manual) Monocytes % (Manual) Metamyelocytes % Diff Path Review Reactive Lymphocytes Platelet Estimate RBC Morphology Anisocytosis PT INR APTT Sodium Potassium Chloride Carbon Dioxide Anion Gap BUN Creatinine Estim Creat Clear Calc Est GFR (MDRD) Af Amer Est GFR (MDRD) Non-Af BUN/Creatinine Ratio Glucose Lactic Acid 13.6 H* Calcium Total Bilirubin AST ALT Alkaline Phosphatase Troponin I High Sens Total Protein Albumin Globulin Albumin/Globulin Ratio Lipase 236 Urine Color Yellow Urine Clarity Clear Urine pH 5.0 Ur Specific [place] 1.020 Urine Protein 100 H Urine Glucose (UA) Normal Urine Ketones 50 H Urine Occult Blood 150 H Urine Nitrite Negative Urine Bilirubin Negative Urine Urobilinogen Normal Ur Leukocyte Esterase Negative Urine RBC 0-5 SEEN Urine WBC 0 SEEN Ur Squamous Epith Cells 0-5 SEEN Urine Bacteria 1+ Urine Mucus 0 SEEN Radiography Diagnostic Testing: Clinical Impression(s) from Imaging Studies Chest X-Ray 07/27/22 13:08 IMPRESSION: No radiographic evidence of acute cardiopulmonary disease. Electronically Signed: Jimena Rodriguez MD at 13:40 EST , Chest x-ray, portable, single view interpreted by myself and radiologist shows no acute abnormality. No infiltrate. Normal cardiac silhouette. Rhythm Strip Rhythm Strip: Sinus Rhythm Rate: 78 Ectopy: None EKG Initial EKG: Attestation: I personally reviewed and interpreted this EKG as follows: Interpretation: Sinus Rhythm and No Acute Injury Pattern Comments: Normal sinus rhythm rate of 78 no acute signs of ND or ischemia. She does have peaked T waves concerning for hyperkalemia versus other etiologies. This is change from prior EKG from April 27 of last year. She also has an interventricular conduction delay. Critical Care Time Critical Care Time: Yes Critical care time (excluding procedures): 30-74 minutes, Including time spent:, Discussing w/Patient &/or Family/Commercial Sales Consultant, Discussing w/Consultants, Arranging Admission or Transfer, Performing Direct Patient Care at Bedside and - (45 min) Discharge Plan Dx/Rx/DC Orders Clinical Impression: Acute hypotension, Acute dehydration, Nausea, vomiting and diarrhea, Septic shock, Hypovolemic shock, Acute kidney failure, Acute hyperkalemia, Non-ST elevated myocardial infarction, Acidosis, lactic, Metabolic acidosis, DNR no code (do not resuscitate) Disposition Disposition: Acute Care [facility]
[2022-07-27 12:47] LABS: Hemoglobin 10.4 g/dL (12.0-15.0); Mean Corp Hgb Conc 28.9 g/dL (32-36); Mean Corpuscular Volume 107.5 fL (81-99); Mean Platelet Vol. 10.2 fl (6.2-12.0); POSITIVE COUNT YES; POSITIVE MORPHOLOGY YES; Platelet Count 318 K/mm3 (150-450); RBC Distribution Width CV 14.3 % (11.6-14.6); RBC Distribution Width SD 56.5 fl (35.1-43.9); Red Blood Count 3.35 M/mm3 (4.2-5.4); White Blood Count 17.9 K/mm3 (4.4-11.0)
[2022-07-27 12:58] LABS: International Normalized Ratio 1.5; Prothrombin Time (Protime)PT. 17.9 SECONDS (11.7-14.9)
[2022-07-27 12:59] LABS: Partial Thromboplast Time 31.6 Seconds (24.1-36.2)
[2022-07-27 13:00] LABS: Mucous, Urine 0 SEEN /hpf (<or=2+); White Blood Cells 0 SEEN /hpf (0-5)
[2022-07-27 13:01] LABS: Differential Indicated MANUAL DIFF
[2022-07-27 13:04] LABS: Color, Urine Yellow (Yellow); Glucose, Dipstick Normal (Normal); Ketone-Dipstick 50 mg/dl (Negative); Leukocyte Esterase-Dipstick Negative /ul (Negative); Nitrite-Dipstick Negative (Negative); Occult Blood-Urine 150 /ul (Negative); Protein-Dipstick 100 mg/dl (Negative); Urine Bilirubin Dipstick Negative (Negative); Urine Clarity Clear (Clear); Urine Urobilinogen Normal (Normal)
--- NOTE | 2022-07-27 13:08 | RAD_ITS ---
INDICATION: hypotension EXAMINATION/TECHNIQUE: X-RAY - XR Chest 1 View COMPARISON: April 27, 2022 FINDINGS: LINES/DEVICES: None. LUNGS: No consolidation, edema or effusion. No pneumothorax. MEDIASTINUM AND CARDIOVASCULAR STRUCTURES: Cardiac silhouette not enlarged. Central airways and mediastinal contour are unremarkable. BONES AND SOFT TISSUES: Unremarkable. RAD/Chest 1 View (Portable) IMPRESSION: No radiographic evidence of acute cardiopulmonary disease. Electronically Signed: Jimena Rodriguez MD at 13:40 EST ,
[2022-07-27 13:10] LABS: Bacteria 1+ /hpf (None Seen); Red Blood Cells-Urine 0-5 SEEN /hpf (0-5); Squamous Epithelial Cells - UA 0-5 SEEN /hpf (5-10)
[2022-07-27 13:15] LABS: ALB/GLOB Ratio 0.9 RATIO (0.9-2.4); AST(SGOT) 58 U/L (15-37); Alanine Aminotransfer ALT/SGPT 47 U/L (13-56); Albumin, Serum 3.4 g/dL (3.2-5.0); Alkaline Phosphatase 77 U/L (45-117); Anion Gap 36 (5-15); BUN 105 mg/dL (7-18); Calcium,Total 9.3 mg/dL (8.5-10.1); Chloride 99 mmol/L (98-107); EST Glomerular Filtration Rate 4 mL/min (>60); Est Glom Filt Rate - Afr Amer 5 mL/min (>60); Estimated Creatinine Clearance 4.18 ml/min; Globulin 3.9 g/dL (2.2-4.2); Glucose 96 mg/dL (74-106); Potassium 7.5 mmol/L (3.5-5.1); Protein, Total 7.3 g/dL (6.4-8.2); Sodium Level 138 mmol/L (136-145); Troponin-I HS 2689 pg/mL (3.0-54.0)
[2022-07-27 13:16] LABS: Lactic Acid 13.6 mmol/L (0.4-1.9)
[2022-07-27] MEDS: Ondansetron 4 MG/2 ML Vial IV (13:16)
[2022-07-27 13:28] LABS: Lymphocyte 16 % (19-41); Metamyelocyte 2 % (0-1); Monocyte 4 % (0-10); Neutrophil-Band 6 % (0-5); Neutrophil-Segmented 72 % (47-70); Platelet Estimate ADEQUATE (ADEQ); Total Cells Counted 100 (MANUAL DIFF)
[2022-07-27 13:29] LABS: Anisocytosis 2+; Reactive Lymphocyte RARE; Red Cell Morphology N CHROM NORMAL (NORM C&C)
[2022-07-27 13:30] LABS: Absolute Neutrophil Count 14.3 X10^3/uL (2.0-7.7); Lymphocyte # 2.86 X10^3/ul (0.83-4.51); Neutrophil # 14.32 X10^3/uL (2.7-7.7)
[2022-07-27 13:31] LABS: Absolute Lymphocyte Count 2.86 X10^3/uL (0.83-4.51)
[2022-07-27] MEDS: 0.9% Normal Saline 1,000 ML 999 ML IV ×2 (13:54→14:28)
--- NOTE | 2022-07-27 14:12 | ED.RN ---
THIS RN PAGED NEPHROLOGY, AWAITING CALL BACK.
[2022-07-27 14:15] LABS: Lipase 236 U/L (73-393)
[2022-07-27] MEDS: Calcium Gluconate IV 3 GM in Syringe 1 EACH IV (14:36)
[2022-07-27] MEDS: Albuterol *CONC* 2.5mg/0.5mL VIAL.NEB. 10 MG INHALATION (14:36)
[2022-07-27] MEDS: Dextrose 50%-Water 25 GM/50 ML DISP.SYRIN IV (14:37)
[2022-07-27] MEDS: Insulin Lispro 10 UNIT in Syringe 0 ML 6 UNIT IV (14:38)
[2022-07-27] MEDS: LORazepam 2 MG/ML Syringe 1 MG IV (15:12)
--- NOTE | 2022-07-27 15:38 | HP.PCM.HOS_ITS ---
HPI - General General Date of Admission: 07/27/22 Date of Service: 07/27/22 Chief Complaint: weakness HPI Narrative HUBER ABREU, is a 71 F with a PMH as outlined who presents via the ED on 07/27/2022 with a complaint of altered mental status and weakness. Son said he found her in bed today confused and with altered mental status. She had had decreaesd oral intake, as well as nausea, vomiting and diarrhea over the last couple of days. She lives with the son; son went to see his father, and returned today and found her unresponsive. She hadnt had any fever that he was aware of. Unable to do further review of systems as she was too lethargic to answer questions. Vitals in the ED at time of review were BP of 62/45, FL of 56, RR of 18 and she was saturating at 77% on 4L of oxygen. CBC showed hemoglobin of 10.4 with WBC of 17.9 and platelets of 318. INR was 1.5. Chemistry showed potassium of 7.5, sodium of 138. bicarb of 3 and Cr of 10.5. Anion gap was 36. Lactic acid was 13.6, and initial troponin was 2689. Urinalysis showed 1+ bacteria. CXR showed no radiographic evidence of acute cardiopulmonary disease. Patient became more lethargic and started having seizure-like activity in the ED. She was also hypotensive was not responding to IV fluids. Plan was for ED doctor to insert central line to start vasopressors and patient also be intubated in the ED. However plan of care was discussed with son who requested that no aggressive measures to be taken and he wanted his mother to be DNR CC A. Central line was therefore not inserted and patient is being admitted to be managed for septic shock and non-STEMI as well as severe JULIANN and hyperkalemia as well as anion gap metabolic acidosis. WHen I reviewed patient in [facility] ED and discussed code status, son now said he wanted more answers about what happened to his mother, and therefore wanted her to be full code, get a central line, vasopressors, be intubated and have CPR if needed so she would get a more extensive workup. [facility] Medical History Acute maxillary sinusitis Acute pyelonephritis Arthritis Asthma Back problem Chronic obstructive lung disease Diabetes Encounter for screening for malignant neoplasm of lung in current smoker with 30 pack year history or greater Former smoker Goiter Hepatomegaly High cholesterol History of tobacco use Hyperlipidemia Hypertension Hypothyroid Normal stress echocardiogram Post-menopausal Shingles Smoking greater than 40 pack years Thyroid disease Type 2 diabetes mellitus Wears dentures Wears glasses Wears partial dentures Home Medications pravastatin 20 mg tablet 20 mg PO DAILY #90 tabs 11/19/21 [Rx Last Taken 04/26/22 22:00] budesonide-formoterol HFA 160 mcg-4.5 mcg/actuation aerosol inhaler (Symbicort) 2 puff inhalation BID #10.2 grams 03/12/22 [Rx Last Taken 04/27/22 08:00] metformin 750 mg tablet,extended release 24 hr 500 mg PO BID Check with primary doctor 03/20/22 [History Last Taken 04/27/22 08:00] xjowbkmb-fnovezk-nncf-lutein tablet 1 tab PO DAILY Check with primary doctor 03/20/22 [History Last Taken 04/27/22 08:00] acetaminophen 300 mg-codeine 30 mg tablet 1 - 2 tab PO Q6H PRN PRN Pain Score 6- 10/10 3 days #10 TABLETS 04/24/22 [Rx Last Taken Unknown] levocetirizine 5 mg tablet 5 mg PO DAILY PRN allergies #30 tabs 07/01/22 [Rx Last Taken Unknown] levothyroxine 75 mcg tablet 75 mcg PO DAILY #90 tabs 07/16/22 [Rx Last Taken Unknown] Allergy/AdvReac Type Severity Reaction Status Date / Time amlodipine Allergy Unknown muscle pain Verified 07/16/22 14:08 Sulfa (Sulfonamide Allergy Rash Verified 07/16/22 14:08 Antibiotics) Family History Sister Thyroid disorder Thyroid cancer Heart disease Diabetes Mother Colon cancer Ovarian cancer Diabetes Father Stomach cancer Colon cancer Brother Heart disease Grandfather Colon cancer Surgical History History of cholecystectomy History of colonoscopy Hx of cystoscopy Social History Smoking Status: Current every day smoker tobacco type: cigarettes Tobacco: How many years used: 55 how long ago did patient quit smokin years second hand exposure: Yes quit status: quit date established alcohol intake: never substance use type: does not use caffeine: No what type of physical activity do you participate in: none ROS Review of Systems ROS Unobtainable: due to encephalopathy Constitutional Constitutional: Reports anorexia Vital Signs Vital Signs Vital Signs: 07/27/22 12:14 07/27/22 12:30 07/27/22 12:59 Temperature 95 F L Temperature Source Temporal Pulse Rate 80 Respiratory Rate 20 H Respiratory Effort Respiratory Pattern Blood Pressure 67/55 L Blood Pressure Mean 59 Pulse Ox 98 98 Oxygen Delivery Method Room Air Room Air Room Air Oxygen Flow Rate (L/min) 07/27/22 12:59 07/27/22 13:01 07/27/22 15:22 Temperature 91.5 F L Temperature Source Core Pulse Rate 80 56 L Respiratory Rate 25 H 18 Respiratory Effort Normal Non-Labored Respiratory Pattern Normal Blood Pressure 62/42 L 62/45 L Blood Pressure Mean 48 50 Pulse Ox 98 77 Oxygen Delivery Method Room Air Nasal Cannula Oxygen Flow Rate (L/min) 4 07/27/22 14:12 07/27/22 14:30 07/27/22 14:45 Temperature Temperature Source Pulse Rate 73 103 H 93 Respiratory Rate Respiratory Effort Respiratory Pattern Blood Pressure 77/52 L 75/46 L 85/54 L Blood Pressure Mean 60 55 64 Pulse Ox Oxygen Delivery Method Oxygen Flow Rate (L/min) 07/27/22 15:00 07/27/22 13:25 07/27/22 14:36 Temperature Temperature Source Pulse Rate 65 105 H 57 L Respiratory Rate 24 H 16 Respiratory Effort Respiratory Pattern Blood Pressure 71/40 L 69/49 L Blood Pressure Mean 50 55 Pulse Ox 95 Oxygen Delivery Method Room Air Oxygen Flow Rate (L/min) Weight Weight: 130 lb 8.218 oz Body Mass Index (BMI) 22.4 Physical Exam Const Constitutional Narrative: lethargic, minimally responsive. HEENT normocephalic and head/scalp atraumatic HEENT Narrative: dry oral mucosa Neck no lymphadenopathy Resp Resp Narrative: diminished breath sounds in all lung mckeon, no wheezes or crackles. hypoxic, on 4L of oxygen by nasal canula Cardio S1 normal heart sound, S2 normal heart sound and no murmurs Cardio Narrative: bradycardic GI normal to inspection, nondistended, normoactive bowel sounds, soft to palpation, non-tender and non-distended Extremity normal to inspection and no clubbing, cyanosis or edema Neuro Neuro Narrative: very lethargic, minimally responsive Results Lab / Micro Data Result Diagrams: 07/27/22 12:34 07/27/22 12:34 Labs: Laboratory Results - last 24 hr 07/27/22 12:34: WBC 17.9 H, RBC 3.35 L, Hgb 10.4 L, Hct 36.0 L, MCV 107.5 H, MCH 31.0, MCHC 28.9 L, RDW Std Deviation 56.5 H, RDW Coeff of Ginny 14.3, Plt Count 318, MPV 10.2, Neut % (Auto) Not Reportable, Absolute Neuts (auto) 14.3 H, Absolute Lymphs (auto) 2.86, Total Counted 100, Neutrophils % (Manual) 72 H, Band Neutrophils % 6 H, Lymphocytes % (Manual) 16 L, Monocytes % (Manual) 4, Metamyelocytes % 2 H, Diff Path Review May foll, Reactive Lymphocytes RARE, Platelet Estimate ADEQUATE, RBC Morphology N CHROM, Anisocytosis 2+ 07/27/22 12:34: PT 17.9 H, INR 1.5, APTT 31.6 07/27/22 12:34: Sodium 138, Potassium 7.5 H*, Chloride 99, Carbon Dioxide 3.0 L* , Anion Gap 36 H, BUN 105 H*, Creatinine 10.50 H*, Estim Creat Clear Calc 4.18, Est GFR (MDRD) Af Amer 5 L, Est GFR (MDRD) Non-Af 4 L, BUN/Creatinine Ratio 10.0, Glucose 96, Calcium 9.3, Total Bilirubin 0.30, AST 58 H, ALT 47, Alkaline Phosphatase 77, Troponin I High Sens 2689 H*, Total Protein 7.3, Albumin 3.4, G lobulin 3.9, Albumin/Globulin Ratio 0.9 07/27/22 12:34: Lactic Acid 13.6 H* 07/27/22 12:55: Urine Color Yellow, Urine Clarity Clear, Urine pH 5.0, Ur Specific [place] 1.020, Urine Protein 100 H, Urine Glucose (UA) Normal, Urine Ketones 50 H, Urine Occult Blood 150 H, Urine Nitrite Negative, Urine Bilirubin Negative, Urine Urobilinogen Normal, Ur Leukocyte Esterase Negative, Urine RBC 0-5 SEEN, Urine WBC 0 SEEN, Ur Squamous Epith Cells 0-5 SEEN, Urine Bacteria 1+, Urine Mucus 0 SEEN 07/27/22 13:50: Lipase 236 Micro: Microbiology 07/27/22 12:34 Nasal Secretion SARS-CoV-2 & FLU Antigen (Rapid) - Final Rhythm Strip Rhythm Strip: Sinus Rhythm Rate: 78 Ectopy: None Radiology Impression Chest X-Ray 07/27/22 13:08 IMPRESSION: No radiographic evidence of acute cardiopulmonary disease. Electronically Signed: Jimena Rodriguez MD at 13:40 EST , Assessment & Plan Assessment/Plan (1) Septic shock: (2) Acute kidney failure: (3) Acute hyperkalemia: (4) Non-ST elevated myocardial infarction: (5) Acidosis, lactic: (6) Metabolic acidosis: PLAN: Plan #Septic shock * etiology is unclear * was found unresponsive by son. Had some antecedent nausea, vomiting and diarrhea for 2 days prior to today * on arrival in [facility] ED, wasa hypotensive, with BP in the 60s systolic * hydrated aggressively per sepsis protocol, but still remains hypotensive. * lactic acid markedly elevated at 13.5. wbc is up to 17.9 * urinalysis showed 1+ bacteria * son intially wanted patient to be DNRCC, but subsequently changed his mind and wants everything done * central line to be placed in ED to initiate vasopressors and stabilise her. * intubated in the ED due to hypoxia * start on IV vancomycin and cefepime * get blood and urine cultures * get CT of the chest, abdomen and pelvis without contrast to evaluate for source of infection- will hold off on getting coppola CT and consult critical care as she is now being made DNRCC * * * #Acute hypoxic respiratory failure * Patient saturating in the 80s on 4 L of oxygen. Patient also very lethargic and unable to maintain her airway. * Patient intubated in the ED to protect her airway. * Breathing treatments bronchodilators. Started on broad-spectrum antibiotics as etiology of septic shock and respiratory failure is unclear * Titrate oxygen to maintain saturation above 90%. * #Anion gap metabolic acidosis * Bicarb is 3. ABGs could not be done in the ED. Creatinine is 10.5 and potassium is 7.5. * Will consult nephrology as patient may need emergent dialysis in light of her severe JULIANN with creatinine of 10.5 and potassium of 7.5. * this is likely due to JULIANN and lactic acidosis * may need emergent dialysis. nephrology consulted * critical care also consulted * will start bicarb drip * #JULIANN with hyperkalemia * Potassium is 7.5 with creatinine of 10.5 and anion gap of 36. * Nephrology emergently consulted. Order renal ultrasound. -nephro consult can celed as family want her to be DNRCC * Check Fe urea. * * #Lactic acidosis: Lactic acid is 13.5 likely due to septic shock. Should improve as shock resolves. #Non-STEMI * Initial troponin is 2689. This may be a type II non-STEMI due to septic shock. We will cycle troponins * Get 2D echo for tomorrow-2D echo and cardiology consult canceled as she is now DNRCC per family wishes and they dont want any further workup. * Consult cardiology. * #Hypothyroidism: on synthroid. #Type 2 diabetes mellitus: hold metformin>: ISS. Accuchecks q6hrly #Hyperlipidemia: hold pravastatin as she is npo DVT prophylaxis: lovenox, renally dosed Code status:full code * Patient's son had initially told the ER doctor that he did not want any aggressive measures and wanted his mother to be DNR CC. At the time of my review I discussed CODE STATUS with him again and patient now said his father was also in the ICU and acetabular and so he felt very stressed and confused. He wanted to know what happened to his mother and wanted further work-up and said if possible he would want his mother to get better for him to enjoy a few more years with her. He therefore now wants all aggressive measures including CPR, intubation and central lines of support blood pressure. I did call Dr. Alexandre the ED doctor in to have a repeat of the conversations that would all be on the same page and son again said he wanted his mother to be full code and wanted all aggressive measures done for her. * Total nrcn-vp-bapp time 20 minutes. * 5:28pm I was informed by ED doctor that patient's daughter came in after patient was intubated,and spoke to her brother and said her mother wouldnt have wanted any aggressive measures. They both spoke to ED doctor and decided to make patient DNRCC. Papers signed to that effect in the ED. Patient was extubated in the ED per family wishes; no central line fred be placed per family request. Patient transferred to Med surg. Will hold off on cardiology and nephrology consult as patient now DNRCC. Total critical care time spent seeing patient, coordinating care, reviewing chart and speaking to the family: 55 mins Charges/Coding Visit Charges Inpatient E&M: 90934 Init Hosp L3 Procedures Hospitalists Procedures: 96155 Critial Care 1st Hr (advanced care discussion [id number])
[2022-07-27] MEDS: Etomidate 20 MG/10 ML Vial IV (16:06)
--- NOTE | 2022-07-27 16:12 | ED.RN ---
1500 THIS RN AT BEDSIDE WITH DR. GUERRERO AND GUSTAVO RN. DR. GUERRERO AT BEDSIDE SPEAKING WITH PT SON ABOUT PATHOPHYSIOLOGY AND EXPLAINING PLAN OF CARE OPTIONS THE PATIENT'S SON. DR. GUERRERO EXPLAINING TO SON THAT THE PATIENT IS CRITICALLY ILL AND SON DECIDES THAT HE WANTS TO WITHDRAWAL CARE AT THIS TIME. PT SON INFORMED OF COMFORT MEASURES AND SON AGREES WITH PLAN OF CARE. HOSPITALIST REPAGED TO INFORM OF PLAN OF CARE CHANGED TO DNRCC. 1600 HOSPITALIST AT BEDSIDE SPEAKING WITH PATIENT SON, AND EVALUATING PT. PT SON REPORTS THAT HE WANTS TO CANCEL DNR STATUS AND TO CONTINUE WITH INVASIVE MEASURES SUCH INTUBATION AND CENTRAL LINE PLACEMENT. DR. GUERRERO INFORMED. DR GUERRERO CALLS FOR RSI. RESPIRATORY AT RNS AT BEDSIDE FOR INTUBATION.
--- NOTE | 2022-07-27 16:21 | ED.RN ---
AFTER DISCUSSION WITH DR. GUERRERO FAMILY WISHES TO WITHDRAW CARE. FAMILY WISHES FOR PATIENT TO BE EXTUBATED AND MADE COMFORTABLE.
--- NOTE | 2022-07-27 16:36 | CPS ---
Terminally extubated pt at families request at 16:25. Placed pt on 4L nasal cannula per Dr. Alexandre orders.
[2022-07-27 16:41] LABS: Reflex Lactate? Y
--- NOTE | 2022-07-27 17:13 | ED.RN ---
restraints removed at 1620 prior to extubation
--- NOTE | 2022-07-27 17:27 | ED.RN ---
ASYSTOLE NOTED ON MONITOR. NO PULSE OR RESPIRATIONS NOTED. NO HEART BEAT NOTED ON AUSCULTATION. MD NOTIFIED AND AT BEDSIDE. TIME OF 1717.
--- NOTE | 2022-07-27 19:30 | ED.RN ---
1610 PT INTUBATED, SOFT WRIST RESTRAINTS APPLIED AT 1610 FOR ET TUBE PROTECTION. DR. GUERRERO AT BEDSIDE.
[2022-07-28 13:53] LABS: Pathologist Review Reviewed
== END 2022-07-27 19:26 ==
LOC: ED 14:03 → ICU 14:52
PROVIDERS: Emergency Medicine; Emergency Provider Internal Medicine; PCP Family Medicine; Visit Provider Internal Medicine
DX: A41.9 Sepsis, unspecified organism (principal); N17.9 Acute kidney failure, unspecified; R65.21 Severe sepsis with septic shock; R57.1 Hypovolemic shock; J44.9 Chronic obstructive pulmonary disease, unspecified; I21.4 Non-ST elevation (NSTEMI) myocardial infarction; E11.9 Type 2 diabetes mellitus without complications; I10 Essential (primary) hypertension; R11.2 Nausea with vomiting, unspecified; R19.7 Diarrhea, unspecified; E78.00 Pure hypercholesterolemia, unspecified; E86.0 Dehydration; F17.210 Nicotine dependence, cigarettes, uncomplicated; E87.20 Acidosis, unspecified; E87.5 Hyperkalemia; E78.5 Hyperlipidemia, unspecified; Z51.5 Encounter for palliative care; Z66 Do not resuscitate
CPT/HCPCS: 31500; 71045; 80053; 81001; 83605; 83690; 84484; 85025; 85610; 85730; 87040; 87086; 87428; 93005; 94002; 94640; 96361; 96365; 96375; 99252; 99285; J7030; A4216; C1751; G0463; J0610; J2405